=== PATIENT | female | born 1950 | race African-American/Black ===

== ENCOUNTER 2018-12-14 23:13 | Inpatient (IN) ==
[2018-12-14] MEDS ORDERED: Isovue-370 500 ML BOTTLE IVP ONE (23:17)
--- NOTE | 2018-12-14 23:37 | Emergency Department Note ---
Disposition Clinical Impression: CVA (cerebral vascular accident) Qualifiers: CVA mechanism: unspecified Qualified Code(s): I63.9 - Cerebral infarction, unspecified Disposition: Admitted As Inpatient Condition: Good Neuro HPI - General Chief Complaint: ED Neuro Symptoms/Deficit Stated Complaint: Possible Stroke Time Seen by Provider: 12/14/18 23:16 Source: patient, EMS Mode of arrival: EMS Limitations: no limitations Nursing Notes Reviewed: Yes Vital Signs Reviewed: Yes - History of Present Illness HPI Narrative: 68-year-old female history of prior CVA with right sided deficits who presents to the ER via EMS due to concern for stroke like symptoms. Reports symptoms began roughly 1 hour prior to arrival which would put her around 10 PM for last known well. Reports difficulty with her speech as well as "the left side of my face filling " as well as weakness in her right arm and left leg. She has had prior issues with her right arm secondary to prior strokes. She also states that this started with a headache and that she has a history of migraines but this does not feel similar. Stroke alert was called. Onset of Symptoms Date: 12/14/18 Onset of Symptoms Time: 22:00 Symptom Onset Unknown: No Location: speech, left face, right arm, left leg History of same: Yes Symptoms Improving: No Improves with: none Worsens with: none Associated symptoms: Reports: headaches Treatments Prior to Arrival: none - Related Data Home Medications: Home Medications Medication Instructions Recorded Confirmed Acetaminophen [Tylenol] 500 mg PO Q6HR 12/15/18 12/15/18 Albuterol Sulfate [Ventolin Hfa] 1 puff IH Q6H PRN 12/15/18 12/15/18 Atorvastatin [Lipitor] 80 mg PO HS 12/15/18 12/15/18 Carvedilol [Coreg] 6.25 mg PO BIDWM 12/15/18 12/15/18 Clopidogrel [Plavix] 75 mg PO DAILY 12/15/18 12/15/18 Cyclosporine [Restasis] 1 each OP BID 12/15/18 12/15/18 Docusate [Colace] 100 mg PO BID 12/15/18 12/15/18 Esomeprazole Magnesium [Nexium] 40 mg PO DAILY 12/15/18 12/15/18 Famotidine [Pepcid] 40 mg PO DAILY 12/15/18 12/15/18 Ferrous Sulfate [Iron] 325 mg PO DAILY 12/15/18 12/15/18 Fluticasone Propionate [Flovent 2 spray IH DAILY 12/15/18 12/15/18 Diskus] Furosemide [Lasix] 40 mg PO DAILY 12/15/18 12/15/18 Insulin ASPART [Novolog Flexpen] 100 unit SQ TIDWM PRN 12/15/18 12/15/18 Levothyroxine Sodium [Levoxyl] 75 mcg PO 0630 12/15/18 12/15/18 Levothyroxine Sodium [Synthroid] 200 mcg PO 0630 12/15/18 12/15/18 Lisinopril [Zestril] 40 mg PO DAILY 12/15/18 12/15/18 Multivit-Min/Iron/Folic Acid/K 1 each PO DAILY 12/15/18 12/15/18 [Adults Multivitamin Tablet] Mupirocin [Bactroban Oint] 1 appl TP BID 12/15/18 12/15/18 Pregabalin [Lyrica] 75 mg PO HS 12/15/18 12/15/18 Restasis 12/15/18 12/15/18 Sennosides/Docusate Sodium [Senna 1 each PO BID 12/15/18 12/15/18 Plus] Sodium Chloride [Saline Nasal Mist] 126 ml NS DAILY 12/15/18 12/15/18 Spironolactone [Aldactone] 25 mg PO DAILY 12/15/18 12/15/18 Tizanidine HCl [Zanaflex] 4 mg PO BID PRN 12/15/18 12/15/18 Allergies/Adverse Reactions: Allergies Allergy/AdvReac Type Severity Reaction Status Date / Time aspirin Allergy Unresponsiv Verified 12/14/18 23:43 e Penicillins [PCN] Allergy Unresponsiv Verified 12/14/18 23:43 e Sulfa (Sulfonamide Allergy Unresponsiv Verified 12/14/18 23:43 Antibiotics) e All systems ED: reviewed and negative except as stated. Cardiovascular: Denies: chest pain Respiratory: Denies: dyspnea Gastrointestinal: Denies: abdominal pain Neurological: Reports: headache, weakness, paresthesias Past Medical History - Past Medical History Attestation: Yes The following information was validated with the patient. Source: patient, old records reviewed Medical history: Reports: CHF, COPD, coronary artery disease, CVA, diabetes, hypertension, peripheral artery disease Psychiatric history: Reports: anxiety, depression - Social History Smoking Status: Never smoker Smokeless Tobacco Status: No Alcohol use: Reports: none Drug use: Reports: none Physical Exam - General Limitations: no limitations General appearance: alert, in no apparent distress - Head Head exam: atraumatic, normocephalic, normal inspection - Eye Eye exam: Present: normal appearance - ENT ENT exam: normal exam - Neck Neck exam: Present: normal inspection - Chest Chest inspection: Present: normal inspection, symmetric chest wall rise - Respiratory Respiratory exam: Present: normal lung sounds bilaterally - Cardiovascular Cardiovascular exam: Present: regular rate, normal rhythm, normal heart sounds - Abdominal Exam Abdominal exam: Present: soft, Non-Tender. Absent: tenderness, distention, rigidity - Extremities Exam Extremities exam: Present: normal inspection, full ROM - Expanded Upper Extremity Exam Shoulder exam: Present: normal inspection, full ROM Arm exam: Present: normal inspection, full ROM Elbow exam: Present: normal inspection, full ROM Forearm/Wrist exam: Present: normal inspection, full ROM Hand exam: Present: normal inspection, full ROM - Expanded Lower Extremity Exam Hip/Pelvis exam: Present: normal inspection, full ROM Upper leg exam: Present: normal inspection, full ROM Knee exam: Present: normal inspection, full ROM Lower leg exam: Present: normal inspection, full ROM Ankle exam: Present: normal inspection, full ROM Foot/toe exam: Present: normal inspection, full ROM - Neurological Exam Neurological exam: Present: alert, oriented X3 - Expanded Neurological Exam Speech: Present: expressive aphasia Cranial nerves: EOM function (II, III, IV, ): Normal, facial sensation (V): Abnormal Left, facial palsy (VII): Normal, spinal accessory function (XI): Normal, tongue deviation (XII): Normal Cerebellar function: finger to nose: Normal Motor strength - LUE: 4/5 Motor strength - RUE: 3/5 Motor strength - LLE: 4/5 Motor strength - RLE: 4/5 Sensory exam upper extremity: light touch: Normal Sensory exam lower extremity: light touch: Normal Coma Scale Eye Opening: Spontaneous Coma Scale Motor Response: Obeys Commands Coma Scale Verbal Response: Oriented Coma Scale Total: 15 - Skin Skin exam: Present: warm, dry Course Course Narrative: Patient seen and examined. Stroke alert called. - Reevaluation(s) Reevaluation #1: Family at bedside. Hurt new symptom is actually dysarthria. Discussed with neurology who evaluated the patient via the stroke robot. Discussion was had about potential TPA. Shared decision making with family in the room. They elected not to administer TPA after risks and benefits were discussed. Plan to admit the patient here for neurological workup. 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 Hospitalist discussed with me about speaking with stroke neurology if she would be a candidate for any intervention. I spoke with the stroke neurologist Dr. Gautam who did not recommend for any acute intervention given the patient's solitary finding of dysarthria. Plan to admit the patient here for further neurologic workup. Vital Signs Temperature 98.1 F 12/14/18 23:15 Pulse Rate 89 12/14/18 23:15 Respiratory Rate 18 12/14/18 23:15 Blood Pressure 188/104 12/14/18 23:15 O2 Sat by Pulse Oximetry 100 12/14/18 23:15 Temperature 98.1 F 12/14/18 23:15 Pulse Rate 87 12/15/18 00:41 Respiratory Rate 18 12/15/18 00:41 Blood Pressure 167/79 12/15/18 00:41 O2 Sat by Pulse Oximetry 100 12/14/18 23:15 Oxygen Delivery Oxygen Delivery Room Air Neuro Symptoms/Deficit - MDM Narrative Medical decision making narrative: 68-year-old female presenting with strokelike symptoms. She has an underlying history of numerous CVAs in the past. Her true new finding today is dysarthria with the current NIH of 1. The patient was evaluated by [facility] stroke neurology answer shared decision making it was decided to withhold TPA. She had imaging as well demonstrating occlusion of her internal carotid artery which was discussed with stroke neurology as well and felt no acute intervention was indicated. Labs reviewed showing chronic anemia. The patient is admitted to the hospitalist service. Patient was not given aspirin as family reports a severe reaction when given. - Lab Data Lab results reviewed: Yes I reviewed the patient's lab results. Result diagrams: 12/14/18 23:38 12/14/18 23:37 Lab Results 12/14/18 12/14/18 12/14/18 Range/Units 23:37 23:37 23:38 WBC 8.9 (4.3-11.1) K/mcL RBC 2.88 L (3.82-4.97) M/mcL Hgb 8.6 L (11.5-15.4) g/dL Hct 26.9 L (35.3-44.9) % MCV 93.4 (83.0-100.0) fL MCH 29.9 (28.0-33.3) pg MCHC 32.0 (31.6-35.5) g/dL RDW 14.6 H (11.5-14.5) % Plt Count 192 (140-400) K/mcL MPV 10.7 (9.4-12.4) fL PT 12.0 (9.4-12.1) Seconds INR 1.1 APTT 36.1 H (26.0-36.0) Seconds Sodium 140 (136-145) mEq/L Potassium 3.8 (3.5-5.1) mEq/L Chloride 105 (98-107) mEq/L Carbon Dioxide 27 (23-29) mEq/L BUN 24 H (8-23) mg/dL Creatinine 1.20 (0.60-1.20) mg/dL Est GFR ( Amer) 54 L (> 60) Est GFR (Non-Af Amer) 45 L (> 60) BUN/Creatinine Ratio 20 (6-26) Glucose 184 H (70-105) mg/dL Calculated Osmolality 299 (280-300) Calcium 8.7 (8.6-10.3) mg/dL Troponin I < 0.03 (< 0.04) ng/mL - Radiology Data Radiology results reviewed: Yes I reviewed the patient's radiology results. Head CT 12/14/18 23:16 IMPRESSION: Limited evaluation as the patient refused to remove her jewelry. However, no acute intracranial abnormality identified. Diffuse atrophic changes with findings suggesting chronic microvascular ischemia and an old right frontal lobe infarct. Findings were discussed with Colleen Urbano at 11:38 pm on 12/14/2018. D/ / Kamar Brasher MD / Kamar Brasher MD Interpreting Provider: Kamar Brasher MD Head CTA 12/14/18 23:17 IMPRESSION: 1. 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 2. Mild atherosclerotic disease of the left internal carotid artery, without evidence of flow-limiting stenosis by NASCET criteria. 3. No evidence of intracerebral arterial stenosis, filling defect, or aneurysm. 4. Patent posterior circulation, without evidence of stenosis, filling defect, or aneurysm. 5. Chronic right frontal infarct. 6. Multiple scattered nonspecific biapical pulmonary nodules, the largest measures 6 mm within the right upper lobe. Suggest further characterization with a routine non urgent follow-up chest CT. D/ / Maxim Apple MD / Maxim Apple MD Interpreting Provider: Maxim Apple MD Neck CTA 12/14/18 23:17 IMPRESSION: 1. 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 2. Mild atherosclerotic disease of the left internal carotid artery, without evidence of flow-limiting stenosis by NASCET criteria. 3. No evidence of intracerebral arterial stenosis, filling defect, or aneurysm. 4. Patent posterior circulation, without evidence of stenosis, filling defect, or aneurysm. 5. Chronic right frontal infarct. 6. Multiple scattered nonspecific biapical pulmonary nodules, the largest measures 6 mm within the right upper lobe. Suggest further characterization with a routine non urgent follow-up chest CT. D/ / Maxim Apple MD / Maxim Apple MD Interpreting Provider: Maxim Apple MD NIH Stroke Scale - Level of Consciousness LOC: Alert - LOC Questions LOC Questions: Answers both correctly - LOC Commands LOC Commands: Performs both correctly - Best Gaze Best Gaze: Normal - Visual Visual: No visual loss - Facial Palsy Facial Palsy: Normal - Motor Arms Motor Arm-Left: No drift for 10 seconds Motor Arm-Right: No drift for 10 seconds - Motor Legs Motor Leg-Left: No drift for 5 seconds Motor Leg-Right: No drift for 5 seconds - Limb Ataxia Limb Ataxia: Absent of affected limb too weak to perform exam - Sensory Sensory: Mild to moderate loss, "not as sharp" - Best Language Best Language: No aphasia - Dysarthria Dysarthria: Mild, slurs some words - Extinction and Inattention Extinction and Inattention: Normal - NIHSS Total Score NIHSS Total Score: 2 TPA Checklist - LKW: 3-4.5 hrs Add. Warnings/Precautions Patient/family understanding: The patient/family members have been counseled and understood the risk, benefit, and alternatives of treatment. S.B.AFederico - S.Yohan Situation: Demographics, MOA Background: Presenting Complaint, Relevant PMH, Meds, & Allergies Assessment: Course and respsone to treatment, Exam Concerns, Patient/Family Expectation, Pertinant Lab Results Recommendation: Barrier(s) to disposition, Recommendation based on pending studies, treatments, or consults S.B.A.RAbhi Report Given to: Dr. Taylor
[2018-12-14 23:51] LABS: Hematocrit 26.9 % (35.3-44.9); Hemoglobin 8.6 g/dL (11.5-15.4); Mean Corpuscular Hemoglobin 29.9 pg (28.0-33.3); Mean Corpuscular Volume 93.4 fL (83.0-100.0); Mean Platelet Volume 10.7 fL (9.4-12.4); Platelet Count 192 K/mcL (140-400); Red Blood Count 2.88 M/mcL (3.82-4.97); Red Cell Distribution Width 14.6 % (11.5-14.5)
[2018-12-14 23:57] LABS: INR 1.1
[2018-12-15] LABS: Activated Partial Thrombo Time 36.1 Seconds (26.0-36.0)
[2018-12-15 00:14] LABS: BUN/Creatinine Ratio 20 (6-26); Blood Urea Nitrogen 24 mg/dL (8-23); Calcium 8.7 mg/dL (8.6-10.3); Carbon Dioxide 27 mEq/L (23-29); Chloride 105 mEq/L (98-107); Glucose 184 mg/dL (70-105); Osmolality,Calculated 299 (280-300); Potassium 3.8 mEq/L (3.5-5.1); Sodium 140 mEq/L (136-145); eGFR For Non-African Americans 45 (> 60)
[2018-12-15 00:15] LABS: Troponin I < 0.03 ng/mL (< 0.04)
--- NOTE | 2018-12-15 00:37 | Emergency Department Note ---
Disposition Clinical Impression: CVA (cerebral vascular accident) Qualifiers: CVA mechanism: unspecified Qualified Code(s): I63.9 - Cerebral infarction, unspecified Disposition: Admitted As Inpatient Condition: Good Referrals: NONE,PCP [Primary Care Provider] - Forms: ED Satisfaction Letter General Adult HPI - General Chief complaint: ED Neuro Symptoms/Deficit Stated complaint: Possible Stroke Time Seen by Provider: 12/14/18 23:16 Source: patient, EMS Mode of arrival: EMS Limitations: no limitations - History of Present Illness Pain Scale: 0 - Related Data Allergies Allergy/AdvReac Type Severity Reaction Status Date / Time aspirin Allergy Unresponsiv Verified 12/14/18 23:43 e Penicillins [PCN] Allergy Unresponsiv Verified 12/14/18 23:43 e Sulfa (Sulfonamide Allergy Unresponsiv Verified 12/14/18 23:43 Antibiotics) e Cardiovascular: Denies: chest pain Respiratory: Denies: dyspnea Gastrointestinal: Denies: abdominal pain Neurological: Reports: headache, weakness, paresthesias Past Medical History - Past Medical History Medical history: Reports: CHF, COPD, coronary artery disease, CVA, diabetes, hypertension, peripheral artery disease Psychiatric history: Reports: anxiety, depression - Social History Smoking Status: Never smoker Smokeless Tobacco Status: No Alcohol use: Reports: none Drug use: Reports: none Physical Exam - General Limitations: no limitations General appearance: alert, in no apparent distress Course Vital Signs Temperature 98.1 F 12/14/18 23:15 Pulse Rate 89 12/14/18 23:15 Respiratory Rate 18 12/14/18 23:15 Blood Pressure 188/104 12/14/18 23:15 O2 Sat by Pulse Oximetry 100 12/14/18 23:15 Temperature 98.1 F 12/14/18 23:15 Pulse Rate 87 12/15/18 00:07 Respiratory Rate 18 12/15/18 00:07 Blood Pressure 148/89 12/15/18 00:07 O2 Sat by Pulse Oximetry 100 12/14/18 23:15 Oxygen Delivery Oxygen Delivery Room Air Medical Decision Making - Lab Data Result diagrams: 12/14/18 23:38 12/14/18 23:37 Lab Results 12/14/18 12/14/18 12/14/18 Range/Units 23:37 23:37 23:38 WBC 8.9 (4.3-11.1) K/mcL RBC 2.88 L (3.82-4.97) M/mcL Hgb 8.6 L (11.5-15.4) g/dL Hct 26.9 L (35.3-44.9) % MCV 93.4 (83.0-100.0) fL MCH 29.9 (28.0-33.3) pg MCHC 32.0 (31.6-35.5) g/dL RDW 14.6 H (11.5-14.5) % Plt Count 192 (140-400) K/mcL MPV 10.7 (9.4-12.4) fL PT 12.0 (9.4-12.1) Seconds INR 1.1 APTT 36.1 H (26.0-36.0) Seconds Sodium 140 (136-145) mEq/L Potassium 3.8 (3.5-5.1) mEq/L Chloride 105 (98-107) mEq/L Carbon Dioxide 27 (23-29) mEq/L BUN 24 H (8-23) mg/dL Creatinine 1.20 (0.60-1.20) mg/dL Est GFR ( Amer) 54 L (> 60) Est GFR (Non-Af Amer) 45 L (> 60) BUN/Creatinine Ratio 20 (6-26) Glucose 184 H (70-105) mg/dL Calculated Osmolality 299 (280-300) Calcium 8.7 (8.6-10.3) mg/dL Troponin I < 0.03 (< 0.04) ng/mL Attestation Statement - Attestation Attestation: I examined this patient and my medical decision-making was reviewed with the Resident Physician. I agree with the documented findings, disposition and treatment plan as described except to the extent set forth below. 68 shereen old female presents to the ED via EMS for sudden onset of woresning slurred speech and left sided facial numbness and lower extremitiy numbness. She has a history of 6 strokes in the past which has left her with knonw right sided defecits. STROKE ALERT was called and Dr Gautam has offered tpa therapy because she is within the window of 4.5 hours as the LKW was 1.5 hours before arrivals. Patient family has declined tpa therapy at this time would like to get hte mRI first. We will admit to [facility]. She does have complete occulation of her right ICA with collaterol perfusion at [facility]
[2018-12-15] MEDS ORDERED: Dextrose Gel 15 GM/37.5 ML TUBE PO PRN ×2 (04:13)
[2018-12-15] MEDS ORDERED: *HR* Dextrose 50 % in Water (Syg) 50 ML SYRINGE IVP PRN (04:13)
[2018-12-15] MEDS ORDERED: D5% in Water 1,000 ML IVC PRN (04:13)
[2018-12-15] MEDS ORDERED: Naloxone 0.4 MG/ML INJ IVP PRN (04:13)
[2018-12-15] MEDS ORDERED: 0.9 % Sodium Chloride w KCl 20 MEQ/1,000 ML MLS IVC SCH (04:15)
--- NOTE | 2018-12-15 04:49 | Internal Med History&Physical ---
Date of Encounter: 12/15/18 Time of Encounter: 03:55 Internal Medicine - H&P: HPI Chief complaint: slurred speech Admitted From: Emergency Dept Plans for Post Hospital Care: Home History of present illness: Ms. Westbrook is a 68 year old female who presented with right-sided weakness and numbness as well as some slurred speech. Upon arrival to the ER, patient was quickly seen and evaluated and a stroke alert was called. There was a tele- medicine robot consultation with [facility] neurology who recommended TPA. However, patient and family refused and preferred to pursue a workup here at [facility]. Furthermore, most of her symptoms had resolved at that point. She also then underwent CTA of the head and neck, which revealed complete occlusion of the right internal carotid artery. I asked the ER resident to contact [facility] neurology regarding these findings. [facility] neurology was contacted back and does not recommend intervention at this time. She was therefore admitted to hospitalst service. Upon my assessment of the patient, she is lying in bed comfortably. She and her daughter both confirmed above history. Her daughter tells me she has had 5 prior strokes. She also suffers from uncontrolled diabetes. However, patient is at high risk of hypoglycemia. She has been told by her PCP to give insulin only if needed due to risk of hypoglycemia and significant/adverse reactions she has had to insulin. Regarding her stroke-like symptoms, her symptoms started this evening. However, daughter states she also has had onset of dysphagia over 24 hours ago. She has had 5 prior strokes and has had minimal to no residual deficits since then. However, she does have right-sided tremor, especially in her arm. Patient also complains of left-sided earache and decreased hearing from her ear. She also is being treated for a diabetic foot wound by the hospitality specialist here. Per nursing report, her foot wound appears to be infected and may need to be debrided. Past Med Surg Social Fam HX - Past Medical History Attestation: Yes The following information was validated with the patient. Source: patient, obtained from family Medical history: CHF, COPD, coronary artery disease, CVA, diabetes, hypertension, peripheral artery disease Additional medical history: ishemic stroke, DJD Psychiatric history: anxiety, depression - Past Surgical History Surgical History: angioplasty/stent, orthopedic, other - Social History Smoking Status: Never smoker Smokeless Tobacco Status: No Alcohol use: none Drug use: none - Family History Mother Living Status: Hx Family Endocrine Disorder: Yes (diabetes) Internal Medicine - H&P: Meds Acetaminophen [Tylenol] 500 mg PO Q6HR 12/15/18 [History] Albuterol Sulfate [Ventolin Hfa] 1 puff IH Q6H PRN 12/15/18 [History] Atorvastatin [Lipitor] 80 mg PO HS 12/15/18 [History] Carvedilol [Coreg] 6.25 mg PO BIDWM 12/15/18 [History] Clopidogrel [Plavix] 75 mg PO DAILY 12/15/18 [History] Cyclosporine [Restasis] 1 each OP BID 12/15/18 [History] Docusate [Colace] 100 mg PO BID 12/15/18 [History] Esomeprazole Magnesium [Nexium] 40 mg PO DAILY 12/15/18 [History] Famotidine [Pepcid] 40 mg PO DAILY 12/15/18 [History] Ferrous Sulfate [Iron] 325 mg PO DAILY 12/15/18 [History] Fluticasone Propionate [Flovent Diskus] 2 spray IH DAILY 12/15/18 [History] Furosemide [Lasix] 40 mg PO DAILY 12/15/18 [History] Insulin ASPART [Novolog Flexpen] 100 unit SQ TIDWM PRN 12/15/18 [History] Levothyroxine Sodium [Levoxyl] 75 mcg PO 0630 12/15/18 [History] Levothyroxine Sodium [Synthroid] 200 mcg PO 0630 12/15/18 [History] Lisinopril [Zestril] 40 mg PO DAILY 12/15/18 [History] Multivit-Min/Iron/Folic Acid/K [Adults Multivitamin Tablet] 1 each PO DAILY 12/15/18 [History] Mupirocin [Bactroban Oint] 1 appl TP BID 12/15/18 [History] Pregabalin [Lyrica] 75 mg PO HS 12/15/18 [History] Restasis 12/15/18 [History] Sennosides/Docusate Sodium [Senna Plus] 1 each PO BID 12/15/18 [History] Sodium Chloride [Saline Nasal Mist] 126 ml NS DAILY 12/15/18 [History] Spironolactone [Aldactone] 25 mg PO DAILY 12/15/18 [History] Tizanidine HCl [Zanaflex] 4 mg PO BID PRN 12/15/18 [History] Allergy/AdvReac Type Severity Reaction Status Date / Time aspirin Allergy Unresponsiv Verified 12/14/18 23:43 e Penicillins [PCN] Allergy Unresponsiv Verified 12/14/18 23:43 e Sulfa (Sulfonamide Allergy Unresponsiv Verified 12/14/18 23:43 Antibiotics) e - Constitutional Constitutional: no chills, no fatigue, no fever(s), no lethargy, no night sweats - EENT Eyes: no blurry vision, no change in vision Ears: decreased hearing (left ear), ear pain, no tinnitus Nose, mouth and throat: nasal congestion, sinus pressure, sore throat - Cardiovascular Cardiovascular ROS IM: no chest pain, no dyspnea, no dyspnea on exertion, no edema - Respiratory Respiratory: no cough, no chest congestion, no excessive phlegm production, no change in phlegm color - Gastrointestinal Gastrointestinal: no abdominal pain, no diarrhea, no hematemesis, no hematochezia, no melena, no vomiting - Genitourinary Genitourinary: no flank pain, no hematuria - Musculoskeletal Musculoskeletal ROS IM: arthralgias, back pain Additional comments: foot ulcer/wound dorsum right foot - Integumentary Integumentary IM: no rash, no jaundice - Neurological Neurological ROS: abnormal speech, focal weakness, no dizziness, no frequent falls, no headache(s) - Psychiatric Psychiatric: no anxiety, no depression - Endocrine Endocrine IM: no polydipsia, no polyphagia, no polyuria - Allergic/Immunologic Allergic/Immunologic: no GI upset with certain foods - Constitutional Vitals: Temp Pulse Resp BP Pulse Ox 98.3 F 83 16 184/99 100 12/15/18 03:38 12/15/18 03:38 12/15/18 03:38 12/15/18 03:38 12/15/18 03:38 General appearance: Present: cooperative, A&O X 3, pleasant, no acute distress, answers questions appropriately Exam: mild slurred speech and facial droop noted - Head Head exam: Present: atraumatic, normal inspection - Eye Eye exam: Present: EOMI, PERRL. Absent: scleral icterus Pupils: Present: normal accommodation - ENT ENT exam: Present: mucous membranes dry, normal exam, normal oropharynx. Absent: TM's normal bilaterally (L TM with serous effusion; ear canal patent without erythema or inflammation) - Neck Neck exam general surgery: Present: full ROM, supple. Absent: tenderness, nuchal rigidity, thyromegaly - Respiratory Respiratory exam: Present: CTAB. Absent: chest wall tenderness, rales, rhonchi, wheezes - Cardiovascular Cardiovascular exam: Present: distant heart sounds, RRR, +S1, +S2. Absent: diastolic murmur, systolic murmur - GI/Abdominal GI/Abdominal exam: Present: normal bowel sounds, soft. Absent: guarding, hepatomegaly, mass, rebound, splenomegaly, tenderness - Extremities Exam Extremities exam: Present: full ROM, warm, radial pulses palpable and symmetrical. Absent: calf tenderness, pedal edema, tenderness Additional comments: right dorsal foot ulcer -- dressed; reported to me by RN. - Back Exam Back exam: Absent: CVA tenderness (L), CVA tenderness (R) - Neurological Exam Neurological exam: Present: alert, oriented X3, no focal deficits, strengths equal and symetr throughout, facial droop (subtle), speech deficit Additional comments: right sided tremor -- old/chronic per daughter - Psychiatric Psychiatric exam: Present: normal affect, normal mood - Skin Skin exam: Present: dry, intact, warm Internal Med - H&P Results - Labs CBC & Chem 7: 12/14/18 23:38 12/14/18 23:37 Labs: Short CBC 12/14/18 Range/Units 23:38 WBC 8.9 (4.3-11.1) K/mcL Hgb 8.6 L (11.5-15.4) g/dL Hct 26.9 L (35.3-44.9) % Plt Count 192 (140-400) K/mcL BMP 12/14/18 23:37 Sodium 140 Potassium 3.8 Chloride 105 Carbon Dioxide 27 BUN 24 H Creatinine 1.20 Glucose 184 H Calcium 8.7 Cardiac Enzymes 12/14/18 Range/Units 23:37 Troponin I < 0.03 (< 0.04) ng/mL - EKG Data -: EKG Interpreted by Myself - EKG Data Prior EKG available for review: no EKG comments: 12/15/18 05:03 NSR - Impressions ITS Impressions Head CT 12/14/18 23:16 IMPRESSION: Limited evaluation as the patient refused to remove her jewelry. However, no acute intracranial abnormality identified. Diffuse atrophic changes with findings suggesting chronic microvascular ischemia and an old right frontal lobe infarct. Findings were discussed with Colleen Urbano at 11:38 pm on 12/14/2018. D/ / Kamar Brasher MD / Kamar Brasher MD Interpreting Provider: Kamar Brasher MD Head CTA 12/14/18 23:17 IMPRESSION: 1. 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 2. Mild atherosclerotic disease of the left internal carotid artery, without evidence of flow-limiting stenosis by NASCET criteria. 3. No evidence of intracerebral arterial stenosis, filling defect, or aneurysm. 4. Patent posterior circulation, without evidence of stenosis, filling defect, or aneurysm. 5. Chronic right frontal infarct. 6. Multiple scattered nonspecific biapical pulmonary nodules, the largest measures 6 mm within the right upper lobe. Suggest further characterization with a routine non urgent follow-up chest CT. D/ / Maxim Apple MD / Maxim Apple MD Interpreting Provider: Maxim Apple MD Neck CTA 12/14/18 23:17 IMPRESSION: 1. 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 2. Mild atherosclerotic disease of the left internal carotid artery, without evidence of flow-limiting stenosis by NASCET criteria. 3. No evidence of intracerebral arterial stenosis, filling defect, or aneurysm. 4. Patent posterior circulation, without evidence of stenosis, filling defect, or aneurysm. 5. Chronic right frontal infarct. 6. Multiple scattered nonspecific biapical pulmonary nodules, the largest measures 6 mm within the right upper lobe. Suggest further characterization with a routine non urgent follow-up chest CT. D/ / Maxim Apple MD / Maxim Apple MD Interpreting Provider: Maxim Apple MD - Diagnostic Studies CT scan - head Status: image reviewed by me (negative) - Assessment and plan (1) CVA (cerebral vascular accident) Current Visit: Yes Status: Acute Assessment and plan: 1. Will order MRI brain, ECHO, PT/OT/ST consults. 2. Consult neurology. 3. Head and neck CTA results reviewed. 4. Continue stroke monitoring per stroke protocol. Qualifiers: CVA mechanism: unspecified Qualified Code(s): I63.9 - Cerebral infarction, unspecified (2) Diabetes type 2, controlled Current Visit: Yes Status: Chronic Assessment and plan: 1. Monitor glucose closely and treat if > 200. 2. Daughter reports brittle diabetes and abrupt hyoglycemia when she takes insulin. 3. Avoid hypoglycemia. 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 Will treat with antibiotics. 2. Monitor clinically and outpatient follow up with PCP. Qualifiers: Chronicity: acute Recurrence: non-recurrent Qualified Code(s): H65.02 - Acute serous otitis media, left ear (4) Diabetic foot ulcer Current Visit: Yes Status: Chronic Assessment and plan: 1. I reviewed her old wound culture. 2. Will place on antibiotics and consult wound care. Qualifiers: Diabetic foot ulcer location: midfoot Diabetes mellitus type: type 1 Laterality: right Non-pressure ulcer stage: unspecified non-pressure ulcer stage Qualified Code(s): E10.621 - Type 1 diabetes mellitus with foot ulcer; L97.419 - Non-pressure chronic ulcer of right heel and midfoot with unspecified severity (5) DVT prophylaxis Current Visit: Yes Status: Acute Assessment and plan: 1. Heparin SQ.
[2018-12-15] MEDS: Acetaminophen 325 MG TABLET PO PRN (05:27)
[2018-12-15] MEDS: Famotidine 20 MG TABLET PO SCH (05:28)
[2018-12-15] MEDS: *HR* Heparin 5,000 UNIT/ML VIAL SQ SCH ×3 (05:29→21:56)
--- NOTE | 2018-12-15 07:35 | Internal Med Progress Note ---
<Violeta Sagastume - Last Filed: 12/15/18 13:39> Hospitalist Progress Note - Encounter Date of Encounter: 12/15/18 - Exam Vitals: Temp Pulse Resp BP Pulse Ox 98.1 F 78 16 189/96 94 12/15/18 12:04 12/15/18 12:04 12/15/18 12:04 12/15/18 12:04 12/15/18 12:04 - Assessment and Plan (1) CVA (cerebral vascular accident) Current Visit: Yes Status: Acute (2) Diabetes type 2, controlled Current Visit: Yes Status: Chronic (3) Left serous otitis media Current Visit: Yes Status: Acute (4) Diabetic foot ulcer Current Visit: Yes Status: Chronic (5) DVT prophylaxis Current Visit: Yes Status: Acute (6) ICAO (internal carotid artery occlusion) Current Visit: Yes Status: Acute (7) Pulmonary nodules Current Visit: Yes Status: Acute (8) HTN (hypertension) Current Visit: Yes Status: Chronic (9) Hypothyroidism Current Visit: No Status: Chronic (10) Anemia Current Visit: Yes Status: Chronic - Time Spent with Patient Total time spent is greater than 50% in coordination of care (as documented) at patient's floor/unit and/or counseling patient: Internal Medicine: Result - Labs CBC & Chem 7: 12/15/18 07:17 12/15/18 07:17 Labs: Short CBC 12/14/18 12/15/18 Range/Units 23:38 07:17 WBC 8.9 9.0 (4.3-11.1) K/mcL Hgb 8.6 L 7.9 L (11.5-15.4) g/dL Hct 26.9 L 25.1 L (35.3-44.9) % Plt Count 192 189 (140-400) K/mcL Neutrophils # 5.9 (1.6-8.9) K/mcL BMP 12/14/18 12/15/18 23:37 07:17 Sodium 140 139 Potassium 3.8 3.8 Chloride 105 107 Carbon Dioxide 27 27 BUN 24 H 22 Creatinine 1.20 1.13 Glucose 184 H 173 H Calcium 8.7 8.8 Cardiac Enzymes 12/14/18 Range/Units 23:37 Troponin I < 0.03 (< 0.04) ng/mL Liver Function 12/15/18 Range/Units 07:17 Total Bilirubin 0.3 (0.3-1.0) mg/dL AST 74 H (13-39) Units/L ALT 100 H (7-52) Units/L Alkaline Phosphatase 82 (34-104) Units/L Albumin 3.3 L (3.5-5.7) g/dL - ABG Interpretation ABG results: PT/INR, D-dimer PT 12.0 Seconds (9.4-12.1) 12/14/18 23:37 - Impressions Impressions Head CT 12/14/18 23:16 IMPRESSION: Limited evaluation as the patient refused to remove her jewelry. However, no acute intracranial abnormality identified. Diffuse atrophic changes with findings suggesting chronic microvascular ischemia and an old right frontal lobe infarct. Findings were discussed with Colleen Urbano at 11:38 pm on 12/14/2018. D/ / Kamar Brasher MD / Kamar Brasher MD Interpreting Provider: Kamar Brasher MD Head CTA 12/14/18 23:17 IMPRESSION: 1. Complete occlusion of the cervical right internal carotid artery at its origin, which becomes reconstituted by collateral flow at the [place]. 2. Mild atherosclerotic disease of the left internal carotid artery, without evidence of flow-limiting stenosis by NASCET criteria. 3. No evidence of intracerebral arterial stenosis, filling defect, or aneurysm. 4. Patent posterior circulation, without evidence of stenosis, filling defect, or aneurysm. 5. Chronic right frontal infarct. 6. Multiple scattered nonspecific biapical pulmonary nodules, the largest measuring 6 mm within the right upper lobe. Suggest further characterization with a routine non urgent follow-up chest CT. D/ / 12/15/2018 07:26:58 Maxim Apple MD / [facility] [place] Interpreting Provider: Maxim Apple MD Neck CTA 12/14/18 23:17 IMPRESSION: 1. Complete occlusion of the cervical right internal carotid artery at its origin, which becomes reconstituted by collateral flow at the [place]. 2. Mild atherosclerotic disease of the left internal carotid artery, without evidence of flow-limiting stenosis by NASCET criteria. 3. No evidence of intracerebral arterial stenosis, filling defect, or aneurysm. 4. Patent posterior circulation, without evidence of stenosis, filling defect, or aneurysm. 5. Chronic right frontal infarct. 6. Multiple scattered nonspecific biapical pulmonary nodules, the largest measuring 6 mm within the right upper lobe. Suggest further characterization with a routine non urgent follow-up chest CT. D/ / 12/15/2018 07:26:58 Maxim Apple MD / [facility] Interpreting Provider: Maxim Apple MD Brain MRI 12/15/18 04:13 IMPRESSION: 1. No acute infarct or acute intracranial process identified. 2. Remote watershed infarct within the right cerebral hemisphere. 3. Remote lacunar infarcts within the right basal ganglia and thalami. D/ / 12/15/2018 13:06:45 Octavio Jean Baptiste MD / [facility] Interpreting Provider: Octavio Jean Baptiste MD Consult Discharge Plan - Plan Referrals: NONE,PCP [Primary Care Provider] - - Attending Attestation I examined this patient and my medical decision-making was reviewed with the Resident Physician Dr Redman. I agree with the documented findings, disposition and treatment plan as described except to the extent set forth below. Ms Westbrook was admitted today with slurred speech and left sided face and leg numbness, as well as right leg numbness She is being worked up for stoke She was a stroke alert in ED and [facility] rec for tpa but PT REFUSED asleep in bed, awakes to name, asked what I wanted and to not wake her up Daughter named AJ at bedside and provides info. States her mother is not cooperative or kind at baseline and mentation is currently unchanged Daughter notes she still has slurred speech, she cannot appreciate facial droop and mother still c/o left arm and leg tingling and she suspects those extremities are weak as well. Discussed plan for day and agreeable, all questions answered gen- asleep,awake o name,appears stated age eyes- pupils equal round cv- reg rate and rhythm, normal s1,s2, no murmurs appreciated, no le edema lungs- ctabl, no wheezing, rhonchi or crackles abd- soft, no apparent tenderness, no guarding, non distended skin- right foot dressing c/d/i neuro- awakes to name, oriented to person, place, situation, she declines eam at this time due to being tired, slight left lower facial droop appreciated, dysarthria present, further exam not preformed due to pt decline to participate Dysarthria/ Left Ext Parasthesias- rule out acute CVA Vasculopathy with hx CVAs (multiple), CAD and PVD -pt presented within time window for tpa and [facility] recommneded but she refused -CTA reviewed by admitter and given RCA occulsion had [facility] review and no int ervention needed, chronic with collateral per report/signout -severe reaction to asa therefore plavix + statin (daughter notes home plavix had been held recently for anemia) -pt/ot/macaroni maker/sw -MRI head no acute infarct identified -echo pending -neuro eval pending -BP control now that no acute infarct Chronic anemia, bl appears to be right around 8.6- stable, cont ot monitor, cont iron pulm nodules incidental on CT head/neck- ct chest to further eval Foot wound- empiric abx started, no drainage currently for wound culture, wound consult pending DM- highly sensitive to insulin with hypoglycemic events in past- bl is 150-180 at home, only treat if >200 L otitis media- abx as above further diagnoses and plan as noted by resident <Brandon Redman - Last Filed: 12/15/18 16:27> Hospitalist Progress Note - Encounter Date of Encounter: 12/15/18 Time of Encounter: 08:00 - Subjective Interval History: Patient seen and examined resting comfortably in bed. 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 Dysphasia is slowly improving. Blood pressure is elevated to allow permissive hypertension in the setting of acute CVA. Patient was not given Aspirin due to previous Aspirin allergy. Awaiting neurology evaluation. CT chest ordered to evaluate pulmonary nodules. Speech therapy recommended a clinically altered diabetic diet and assistance with all meals. Patient asked for Tums today and prn stool softener. - Exam Vitals: Temp Pulse Resp BP Pulse Ox 97.8 F 82 16 184/91 95 12/15/18 06:47 12/15/18 06:47 12/15/18 06:47 12/15/18 06:47 12/15/18 06:47 Exam: General appearance: Present: cooperative, A&O X 3, pleasant, no acute distress, answers questions appropriately Exam: - Head Head exam: Present: atraumatic, normal inspection - Eye Eye exam: Present: EOMI, PERRL. Absent: scleral icterus Pupils: Present: normal accommodation - ENT ENT exam: Present: mucous membranes dry, normal exam, normal oropharynx. Absent: TM's normal bilaterally (L TM with serous effusion; ear canal patent without erythema or inflammation) - Neck Neck exam general surgery: Present: full ROM, supple. Absent: tenderness, nuc richa rigidity, thyromegaly - Respiratory Respiratory exam: Present: CTAB. Absent: chest wall tenderness, rales, rhonchi, wheezes - Cardiovascular Cardiovascular exam: Present: distant heart sounds, RRR, +S1, +S2. Absent: diastolic murmur, systolic murmur - GI/Abdominal GI/Abdominal exam: Present: normal bowel sounds, soft. Absent: guarding, hepatomegaly, mass, rebound, splenomegaly, tenderness - Extremities Exam Extremities exam: Present: full ROM, warm, radial pulses palpable and symmetrical. Absent: calf tenderness, pedal edema, tenderness Additional comments: right dorsal foot ulcer, dressing in place - Back Exam Back exam: Absent: CVA tenderness (L), CVA tenderness (R) - Neurological Exam Neurological exam: Present: alert, oriented X3, no focal deficits, strengths equal and symetr throughout, facial droop (subtle), speech deficit Additional comments: mild slurred speech and facial droop noted, right upper extremity tremor, chronic per daughter - Psychiatric Psychiatric exam: Present: normal affect, normal mood - Skin Skin exam: Present: dry, warm, right dorsal foot ulcer, dressing in place - Assessment and Plan (1) Community acquired pneumonia Current Visit: Yes Status: Suspected Assessment and Plan: Chest CT revealed bronchial wall thickening and diffusely distributed bilateral punctate ill-defined centrilobular nodules in branching configuration, likely infectious airways disease. Pericardial effusion measuring to 1.3 cm in thickness. Urine Legionella and strep pneumo antigens pending MRSA nasal swab pending at Blood culture pending Sputum culture pending Continue vancomycin and Levaquin (day 1) (2) Left serous otitis media Current Visit: Yes Status: Acute Assessment and Plan: Left TM with serous effusion Wound culture pending Continue vancomycin and Levaquin (day 1) Continue pain control as needed Monitor clinically and outpatient follow up with PCP. (3) Facial paresthesia Current Visit: Yes Status: Chronic Assessment and Plan: CT head revealed diffuse atrophic changes with findings suggesting chronic microvascular ischemia and an old right frontal lobe infarct. Head CTA revealed no evidence of intracerebral arterial stenosis, filling defect, or aneurysm. Patent posterior circulation, without evidence of stenosis, filling defect, or aneurysm. Chronic right frontal infarct. [facility] recommended TPA. However, patient and family refused and preferred to pursue a workup here at [place]. Furthermore, most of her symptoms had resolved at that point. Dysplasia is slowly improving. 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 MRI brain revealed no acute infarct or acute intracranial process identified. Remote watershed infarct within the right cerebral hemisphere. Remote lacunar infarcts within the right basal ganglia and thalami. ECHO revealed LVEF 55-60%, moderate concentric left ventricular hypertrophy, moderate left ventricular diastolic dysfunction, the non coronary cusp of the aortic valve and the tip of the anterior mitral valve leaflet are thickened and echogenic, probably with calcified material. No evidence of pulmonary hypertension. Continue statin. Continue Plavix. Patient was not given Aspirin due to previous Aspirin allergy. Speech therapy recommended a clinically altered diabetic diet and assistance with all meals. PT/OT consulted Continue monitoring per stroke protocol. Neurology following, appreciate their recommendations. (4) ICAO (internal carotid artery occlusion) Current Visit: Yes Status: Acute Assessment and Plan: CTA neck revealed complete occlusion of the cervical right internal carotid artery at its origin, which becomes reconstituted by collateral flow at the [place]. Mild atherosclerotic disease of the left internal carotid artery, without evidence of flow-limiting stenosis by NASCET criteria. [facility] neurology did not recommend intervention at this time. Continue risk factor modification. Recommend outpatient follow-up with vascular surgery. (5) Diabetic foot ulcer Current Visit: Yes Status: Chronic Assessment and Plan: Chronic foot wound appears to be infected and may need to be debrided. Wound culture from 11/26/18 revealed Enterobacter cloacae complex, resistant to Augmentin and Cefazolin. Wound culture pending Continue vancomycin and Levaquin (day 1) Consulted wound care. (6) Diabetes type 2, controlled Current Visit: Yes Status: Chronic Assessment and Plan: Daughter reports brittle diabetes and abrupt hyoglycemia when she takes insulin. Hemoglobin A1c pending Monitor glucose closely, continue low dose SSI ACHS. (7) HTN (hypertension) Current Visit: Yes Status: Chronic Assessment and Plan: Blood pressure is elevated Resume home Coreg. Labetalol ordered prn BP > 160/90 Continue monitoring. (8) Pulmonary nodules Current Visit: Yes Status: Acute Assessment and Plan: CTA neck revealed multiple scattered nonspecific biapical pulmonary nodules, the largest measures 6 mm within the right upper lobe. Chest CT revealed 9 mm noncalcified nodule within the left lower lobe, consider CT at 3 months, PET/CT, or tissue sampling (9) Anemia Current Visit: Yes Status: Chronic Assessment and Plan: Appears chronic since November 2018. No active signs of bleeding. Iron studies reveal iron deficiency anemia B12 and folate levels are WNL Fecal occult blood test pending Continue home iron supplementation. (10) Hypothyroidism Current Visit: No Status: Chronic Assessment and Plan: TSH level pending Continue Synthroid. (11) Constipation Current Visit: Yes Status: Chronic Assessment and Plan: Colace and milk of magnesia ordered (12) DVT prophylaxis Current Visit: Yes Status: Acute Assessment and Plan: Heparin SQ. - Time Spent with Patient Total time spent is greater than 50% in coordination of care (as documented) at patient's floor/unit and/or counseling patient: Internal Medicine: Result - Labs CBC & Chem 7: 12/15/18 07:17 12/15/18 07:17 Labs: Short CBC 12/14/18 Range/Units 23:38 WBC 8.9 (4.3-11.1) K/mcL Hgb 8.6 L (11.5-15.4) g/dL Hct 26.9 L (35.3-44.9) % Plt Count 192 (140-400) K/mcL BMP 12/14/18 23:37 Sodium 140 Potassium 3.8 Chloride 105 Carbon Dioxide 27 BUN 24 H Creatinine 1.20 Glucose 184 H Calcium 8.7 Cardiac Enzymes 12/14/18 Range/Units 23:37 Troponin I < 0.03 (< 0.04) ng/mL - ABG Interpretation ABG results: PT/INR, D-dimer PT 12.0 Seconds (9.4-12.1) 12/14/18 23:37 - Pulse Oximetry Interpretation Digit-Finger Pulse Oximetry Readin (On ambient air) - Impressions Impressions CT/CT chest wo con IMPRESSION: Bronchial wall thickening and diffusely distributed bilateral punctate ill-defined centrilobular nodules in branching configuration, likely infectious airways disease. Pericardial effusion measuring to 1.3 cm in thickness. 9 mm noncalcified nodule within the left lower lobe. See recommendation below for follow-up.. RECOMMENDATIONS: Fleischner Society guidelines for follow-up and management of incidentally detected pulmonary nodules: Single Solid Nodule: Nodule size greater than 8 mm In a low-risk patient, consider CT at 3 months, PET/CT, or tissue sampling. In a high-risk patient, consider CT at 3 months, PET/CT, or tissue sampling. . - Low risk patients include individuals with minimal or absent history of smoking and other known risk factors. - High risk patients include individuals with a history or smoking or known risk factors. Radiology 2017 http://pubs.rsna.org/doi/full/10.1148/radiol.[email or web address] D/ / Lissy Velasquez Cha, MD / Lissy Velasquez Cha, MD Interpreting Provider: Lissy Velasquez Cha, MD <Violeta Sagastume - Last Filed: 12/15/18 13:39> (1) CVA (cerebral vascular accident) Qualifiers: CVA mechanism: unspecified Qualified Code(s): I63.9 - Cerebral infarction, unspecified (2) Diabetes type 2, controlled Qualifiers: Diabetes mellitus senior care insulin use: with senior care use Diabetes mellitus complication status: with skin complications Diabetes mellitus complication detail: with foot ulcer Qualified Code(s): E11.621 - Type 2 diabetes mellitus with foot ulcer; L97.509 - Non-pressure chronic ulcer of other part of unspecified foot with unspecified severity; Z79.4 - custodial (current) use of insulin (3) Left serous otitis media Qualifiers: Chronicity: acute Recurrence: non-recurrent Qualified Code(s): H65.02 - Acute serous otitis media, left ear (4) Diabetic foot ulcer Qualifiers: Diabetic foot ulcer location: midfoot Diabetes mellitus type: type 1 Laterality: right Non-pressure ulcer stage: unspecified non-pressure ulcer stage Qualified Code(s): E10.621 - Type 1 diabetes mellitus with foot ulcer; L97.419 - Non-pressure chronic ulcer of right heel and midfoot with unspecified severity (6) ICAO (internal carotid artery occlusion) Qualifiers: Laterality: right Qualified Code(s): I65.21 - Occlusion and stenosis of right carotid artery (9) Hypothyroidism Qualifiers: Hypothyroidism type: unspecified Qualified Code(s): E03.9 - Hypothyroidism, unspecified (10) Anemia Qualifiers: Anemia type: unspecified type Qualified Code(s): D64.9 - Anemia, unspecified <Brandon Redman - Last Filed: 12/15/18 16:27> (1) Community acquired pneumonia Qualifiers: Laterality: unspecified laterality Qualified Code(s): J18.9 - Pneumonia, unspecified organism (2) Left serous otitis media Qualifiers: Chronicity: acute Recurrence: non-recurrent Qualified Code(s): H65.02 - Acute serous otitis media, left ear (4) ICAO (internal carotid artery occlusion) Qualifiers: Laterality: right Qualified Code(s): I65.21 - Occlusion and stenosis of right carotid artery (5) Diabetic foot ulcer Qualifiers: Diabetic foot ulcer location: midfoot Diabetes mellitus type: type 1 Laterality: right Non-pressure ulcer stage: unspecified non-pressure ulcer stage Qualified Code(s): E10.621 - Type 1 diabetes mellitus with foot ulcer; L97.419 - Non-pressure chronic ulcer of right heel and midfoot with unspecified severity (6) Diabetes type 2, controlled Qualifiers: Diabetes mellitus patient support partner insulin use: with patient support partner use Diabetes mellitus complication status: with skin complications Diabetes mellitus complication detail: with foot ulcer Qualified Code(s): E11.621 - Type 2 diabetes mellitus with foot ulcer; L97.509 - Non-pressure chronic ulcer of other part of unspecified foot with unspecified severity; Z79.4 - custodial (current) use of insulin (9) Anemia Qualifiers: Anemia type: iron deficiency Iron deficiency anemia type: unspecified iron deficiency Qualified Code(s): D50.9 - Iron deficiency anemia, unspecified (10) Hypothyroidism Qualifiers: Hypothyroidism type: unspecified Qualified Code(s): E03.9 - Hypothyroidism, unspecified (11) Constipation Qualifiers: Constipation type: slow transit constipation Qualified Code(s): K59.01 - Slow transit constipation
[2018-12-15 07:44] LABS: Basophils % 0.2 %; Eosinophils # 0.1 K/mcL (0.0-0.6); Eosinophils % 1.1 %; Hematocrit 25.1 % (35.3-44.9); Hemoglobin 7.9 g/dL (11.5-15.4); Immature Granulocytes % 0.2 % (0-4); Lymphocytes # 2.5 K/mcL (0.6-4.6); Lymphocytes % 27.3 %; Mean Corpuscular HGB Conc 31.5 g/dL (31.6-35.5); Mean Corpuscular Hemoglobin 29.3 pg (28.0-33.3); Mean Platelet Volume 11.1 fL (9.4-12.4); Monocytes # 0.5 K/mcL (0.0-1.3); Monocytes % 5.8 %; Neutrophils # 5.9 K/mcL (1.6-8.9); Platelet Count 189 K/mcL (140-400); Red Cell Distribution Width 14.6 % (11.5-14.5); Segmented Neutrophils % 65.4 %
[2018-12-15 08:21] LABS: Albumin 3.3 g/dL (3.5-5.7); Albumin/Globulin Ratio 1.2 (1.1-2.2); Bilirubin,Total 0.3 mg/dL (0.3-1.0); Calcium 8.8 mg/dL (8.6-10.3); Globulin 2.7 g/dL (2.4-3.5); Magnesium 1.9 mg/dL (1.6-2.6); Potassium 3.8 mEq/L (3.5-5.1)
[2018-12-15 08:52] LABS: % Iron Saturation 8 % (15-50); Iron 26 mcg/dL (50-170); Transferrin 222 mg/dL (203-362)
[2018-12-15] MEDS ORDERED: Levofloxacin 750 MG/150 ML 750 MG/150 ML BAG IVPB SCH (09:00)
[2018-12-15 09:09] LABS: Ferritin 70 ng/mL (10-120)
[2018-12-15 09:14] LABS: Folate 14.6 ng/mL (3.0-16.0)
[2018-12-15] MEDS: Multivit/Ca/Min/Fe/FA 1 TAB TABLET PO SCH (09:25)
[2018-12-15] MEDS: Cyclosporine [Restasis] OP SCH ×2 (09:26→21:56)
[2018-12-15] MEDS: Fluticasone Propionate Nasal 50 MCG/SPRAY BOTTLE NS SCH (09:26)
[2018-12-15] MEDS: traMADol 50 MG TABLET PO PRN ×2 (12:07→22:03)
--- NOTE | 2018-12-15 15:15 | Neurology - Consult Note ---
Date of Encounter: 12/15/18 Time of Encounter: 15:11 Assessment and Plan (1) Facial paresthesia Current Visit: Yes Status: Acute At this time I am unable to confirm any evidence of an acute stroke. MRI scan of the brain with diffusion images has been completed and did not reveal evidence of an acute diffusion injury. She does however have his several scattered lacunar infarcts involving the basal ganglia and deep white matter symmetrically. And there is also evidence of a previous infarct in the territory of the right anterior cerebral artery or perhaps it may have been relative to a watershed infarct. In any regard I see no evidence of an acute ischemic event. I do however find that she does have a chronically occluded right internal carotid artery, and overall she seems to be in poor medical health with diabetes being poorly controlled her blood sugars have been running in the 180s, and her hypertension is also poorly controlled with systolic pressures in the 180s and diastolics in the 90s. Unfortunately there is not much to do from a neurologic perspective acutely. I would simply recommend that she maintain her current stroke regimen of Plavix, antihypertensives therapy and aggressive management of her diabetes and hyperlipidemia. I am not certain as to whether noncompliance, or other social issues are at play. Might consider social economist consultation to assess home environment. I will reevaluate her at your request. History of Present Illness HPI: The chart was reviewed, the patient was seen and examined. Ms. Westbrook is a 68 year old female who is seen for neurologic consultation at the request of the hospitalist secondary to strokelike symptoms. She presented with symptoms of speech difficulty as well as complaints of left facial numbness along with bilateral lower extremity weakness. She did have a mild headache associated which has improved. She does have a history of migraine headaches but felt that the migraine she generally experiences was different from the headache she had at the onset of these symptoms. She does have a history of uncontrolled diab etes as well as a totally occluded right internal carotid artery. I personally reviewed the MRI scan of the brain was negative for acute diffusion injury. However does reveal multiple lacunar infarcts involving the basal ganglia and deep white matter bilaterally. There is also evidence of an infarct which is perhaps due to right anterior cerebral artery compromise versus watershed infarcts on the right. Additionally she also has significant cortical atrophy. She complains of ataxic involuntary movements of the right upper extremity which have been present since "stroke #3". She is also been hypertensive since admission with blood pressure averaging in the 180s systolic and 90s diastolic. She has bandage on the right foot when she said it "busted". Patient is awake and alert and does a fair job of giving her own history. Apparently a stroke alert was implemented through our ED however the patient declined to receive TPA. Past Med Surg Social Fam HX - Past Medical History Medical history: CHF, COPD, coronary artery disease, CVA, diabetes, hypertension, peripheral artery disease Additional medical history: ishemic stroke, DJD Psychiatric history: anxiety, depression - Past Surgical History Surgical History: angioplasty/stent, orthopedic, other - Social History Smoking Status: Never smoker Smokeless Tobacco Status: No Alcohol use: none Drug use: none - Family History Mother Living Status: Hx Family Endocrine Disorder: Yes (diabetes) Medications and Allergies Acetaminophen [Tylenol] 500 mg PO Q6HR 12/15/18 [History] Albuterol Sulfate [Ventolin Hfa] 1 puff IH Q6H PRN 12/15/18 [History] Atorvastatin [Lipitor] 80 mg PO HS 12/15/18 [History] Carvedilol [Coreg] 6.25 mg PO BIDWM 12/15/18 [History] Clopidogrel [Plavix] 75 mg PO DAILY 12/15/18 [History] Cyclosporine [Restasis] 1 each OP BID 12/15/18 [History] Docusate [Colace] 100 mg PO BID 12/15/18 [History] Esomeprazole Magnesium [Nexium] 40 mg PO DAILY 12/15/18 [History] Famotidine [Pepcid] 40 mg PO DAILY 12/15/18 [History] Ferrous Sulfate [Iron] 325 mg PO DAILY 12/15/18 [History] Fluticasone Propionate [Flovent Diskus] 2 spray IH DAILY 12/15/18 [History] Furosemide [Lasix] 40 mg PO DAILY 12/15/18 [History] Insulin ASPART [Novolog Flexpen] 100 unit SQ TIDWM PRN 12/15/18 [History] Levothyroxine Sodium [Levoxyl] 75 mcg PO 0630 12/15/18 [History] Levothyroxine Sodium [Synthroid] 200 mcg PO 0630 12/15/18 [History] Lisinopril [Zestril] 40 mg PO DAILY 12/15/18 [History] Multivit-Min/Iron/Folic Acid/K [Adults Multivitamin Tablet] 1 each PO DAILY 12/15/18 [History] Mupirocin [Bactroban Oint] 1 appl TP BID 12/15/18 [History] Pregabalin [Lyrica] 75 mg PO HS 12/15/18 [History] Restasis 12/15/18 [History] Sennosides/Docusate Sodium [Senna Plus] 1 each PO BID 12/15/18 [History] Sodium Chloride [Saline Nasal Mist] 126 ml NS DAILY 12/15/18 [History] Spironolactone [Aldactone] 25 mg PO DAILY 12/15/18 [History] Tizanidine HCl [Zanaflex] 4 mg PO BID PRN 12/15/18 [History] Allergy/AdvReac Type Severity Reaction Status Date / Time aspirin Allergy Unresponsiv Verified 12/14/18 23:43 e Penicillins [PCN] Allergy Unresponsiv Verified 12/14/18 23:43 e Sulfa (Sulfonamide Allergy Unresponsiv Verified 12/14/18 23:43 Antibiotics) e All Systems: The remainder of the systems were reviewed and are negative Review of Systems: The balance of the systems review is negative. Physical Examination - Vital Signs Vital Signs: Initial Vital Signs Temp Pulse Resp BP Pulse Ox 98.1 F 89 18 188/104 100 12/14/18 23:15 12/14/18 23:15 12/14/18 23:15 12/14/18 23:15 12/14/18 23:15 - Exam Exam: General Examination: *CONSTITUTIONAL: normal *EYES: pupils equal, round, reactive to light and accommodation, conjunctiva clear without masses or ulcerations, fundi normal. *CARDIOVASCULAR patient's left foot does appear to be edematous as well as poor hygiene care. Her right foot is wrapped in the gauze. And is edematous as well. Refer to vital signs Musculoskeletal: *GAIT AND STATION gait is not assessed. 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 She has an involuntary tremor of the right upper extremity which is worse with activity. She has normal strength of the left lower extremity, the right leg is externally rotated strength is 4/5 of the right lower extremity. *MUSCLE TONE IN THE UPPER AND LOWER EXTREMITIES is a significant action tremor which appears pathologic of the right upper extremity. The tremor is sometimes present at rest as well. Neurological: *ORIENTATION to time and place *RECURRENT AND REMOTE MEMORY intact *ATTENTION AND CONCENTRATION are normal *LANGUAGE FUNCTION is no agnosia or aphasia, patient's speech is however dysarthric. *FUND OF KNOWLEDGE aware of current events, past history, vocabulary *MENTAL attention span and concentration normal. *CN II optic fundi were normal, no papilledema noted. *CN III,IV, PERRLA extraocular eye movements were full, no nystagmus and no ptosis noted. *CN V shows numbness of the left face. *CN VII shows left facial weakness. *CN VIII shows no significant hearing loss on examination in the office. *CN IX,,X palate elevated symmetrically and normal gag reflex was noted. *CN XI normal strength in the sternocleidomastoid muscles, symmetrical shoulder shrugging. *CN XII tongue protruded in the midline, with normal strength and movement. *SENSORY EXAMINATION there is patchy numbness of both lower extremities, patient may not be completely reliable for the sensory exam. *REFLEXES: deep tendon reflexes were diminished throughout. *CEREBELLAR TESTING patient can perform finger to nose with the left upper extremity without difficulty however she is grossly ataxic when performing right [id number]. *PAIN LEVEL Results - Laboratory Findings CBC and BMP: 12/15/18 07:17 12/15/18 07:17 Abnormal lab findings: Abnormal lab results RBC 2.70 M/mcL (3.82-4.97) L 12/15/18 07:17 Hgb 7.9 g/dL (11.5-15.4) L 12/15/18 07:17 Hct 25.1 % (35.3-44.9) L 12/15/18 07:17 MCHC 31.5 g/dL (31.6-35.5) L 12/15/18 07:17 RDW 14.6 % (11.5-14.5) H 12/15/18 07:17 APTT 36.1 Seconds (26.0-36.0) H 12/14/18 23:37 Est GFR ( Amer) 58 (> 60) L 12/15/18 07:17 Est GFR (Non-Af Amer) 48 (> 60) L 12/15/18 07:17 Glucose 173 mg/dL (70-105) H 12/15/18 07:17 POC Glucose 155 mg/dL (70-99) H 12/15/18 02:24 Iron 26 mcg/dL (50-170) L 12/15/18 07:50 % Saturation 8 % (15-50) L 12/15/18 07:50 AST 74 Units/L (13-39) H 12/15/18 07:17 ALT 100 Units/L (7-52) H 12/15/18 07:17 Serum Total Protein 6.0 g/dL (6.4-8.9) L 12/15/18 07:17 Albumin 3.3 g/dL (3.5-5.7) L 12/15/18 07:17 Consult Discharge Plan - Plan Referrals: NONE,PCP [Primary Care Provider] -
[2018-12-15] MEDS ORDERED: MOM Conc 10 ML UD.LIQ PO PRN (15:53)
[2018-12-15] MEDS ORDERED: *HR* Labetalol 20 MG/4 ML SYRINGE IVP PRN (15:55)
[2018-12-15] MEDS: Insulin LISPRO 300 UNITS/3 ML VIAL SQ SCH ×2 (17:15→21:56)
[2018-12-15] MEDS: *HR* Labetalol 20 MG/4 ML SYRINGE IVP PRN (17:15)
[2018-12-16 04:22] LABS: Basophils % 0.5 %; Eosinophils # 0.1 K/mcL (0.0-0.6); Eosinophils % 1.5 %; Hematocrit 24.1 % (35.3-44.9); Hemoglobin 7.7 g/dL (11.5-15.4); Immature Granulocytes % 0.2 % (0-4); Lymphocytes # 2.4 K/mcL (0.6-4.6); Lymphocytes % 40.1 %; Mean Corpuscular Hemoglobin 29.6 pg (28.0-33.3); Mean Corpuscular Volume 92.7 fL (83.0-100.0); Mean Platelet Volume 10.6 fL (9.4-12.4); Monocytes # 0.3 K/mcL (0.0-1.3); Monocytes % 5.2 %; Neutrophils # 3.1 K/mcL (1.6-8.9); Platelet Count 178 K/mcL (140-400); Red Cell Distribution Width 14.6 % (11.5-14.5); Segmented Neutrophils % 52.5 %
[2018-12-16 04:38] LABS: Alanine Aminotransferase 69 Units/L (7-52); Albumin/Globulin Ratio 1.1 (1.1-2.2); Alkaline Phosphatase 63 Units/L (34-104); Aspartate Amino Transferase 28 Units/L (13-39); BUN/Creatinine Ratio 17 (6-26); Bilirubin,Total 0.5 mg/dL (0.3-1.0); Blood Urea Nitrogen 18 mg/dL (8-23); Calcium 8.1 mg/dL (8.6-10.3); Carbon Dioxide 25 mEq/L (23-29); Chloride 109 mEq/L (98-107); Globulin 2.7 g/dL (2.4-3.5); Glucose 135 mg/dL (70-105); Osmolality,Calculated 298 (280-300); Potassium 3.7 mEq/L (3.5-5.1); Sodium 142 mEq/L (136-145); Total Protein 5.7 g/dL (6.4-8.9); eGFR For Non-African Americans 51 (> 60)
[2018-12-16] MEDS: Famotidine 20 MG TABLET PO SCH (05:18)
[2018-12-16] MEDS: *HR* Heparin 5,000 UNIT/ML VIAL SQ SCH ×3 (05:18→23:41)
--- NOTE | 2018-12-16 08:18 | Internal Med Progress Note ---
<Violeta Sagastume - Last Filed: 12/16/18 15:34> Hospitalist Progress Note - Encounter Date of Encounter: 12/16/18 - Exam Vitals: Temp Pulse Resp BP Pulse Ox 98.0 F 70 14 158/91 97 12/16/18 10:50 12/16/18 10:50 12/16/18 10:50 12/16/18 10:50 12/16/18 10:50 - Assessment and Plan (1) CVA (cerebral vascular accident) Current Visit: Yes Status: Chronic (2) Diabetes type 2, controlled Current Visit: Yes Status: Chronic (3) Left serous otitis media Current Visit: Yes Status: Acute (4) Diabetic foot ulcer Current Visit: Yes Status: Chronic (5) DVT prophylaxis Current Visit: Yes Status: Acute (6) ICAO (internal carotid artery occlusion) Current Visit: Yes Status: Acute (7) Pulmonary nodules Current Visit: Yes Status: Acute (8) HTN (hypertension) Current Visit: Yes Status: Chronic (9) Hypothyroidism Current Visit: No Status: Chronic (10) Anemia Current Visit: Yes Status: Chronic - Time Spent with Patient Total time spent is greater than 50% in coordination of care (as documented) at patient's floor/unit and/or counseling patient: Internal Medicine: Result - Labs CBC & Chem 7: 12/16/18 04:01 12/16/18 04:01 Labs: Short CBC 12/16/18 Range/Units 04:01 WBC 6.0 (4.3-11.1) K/mcL Hgb 7.7 L (11.5-15.4) g/dL Hct 24.1 L (35.3-44.9) % Plt Count 178 (140-400) K/mcL Neutrophils # 3.1 (1.6-8.9) K/mcL BMP 12/16/18 04:01 Sodium 142 Potassium 3.7 Chloride 109 H Carbon Dioxide 25 BUN 18 Creatinine 1.08 Glucose 135 H Calcium 8.1 L Liver Function 12/16/18 Range/Units 04:01 Total Bilirubin 0.5 (0.3-1.0) mg/dL AST 28 (13-39) Units/L ALT 69 H (7-52) Units/L Alkaline Phosphatase 63 (34-104) Units/L Albumin 3.0 L (3.5-5.7) g/dL - ABG Interpretation ABG results: PT/INR, D-dimer PT 12.0 Seconds (9.4-12.1) 12/14/18 23:37 - Impressions Impressions Head CTA 12/14/18 23:17 IMPRESSION: 1. Complete occlusion of the cervical right internal carotid artery at its origin, which becomes reconstituted by collateral flow at the [place]. 2. Mild atherosclerotic disease of the left internal carotid artery, without evidence of flow-limiting stenosis by NASCET criteria. 3. No evidence of intracerebral arterial stenosis, filling defect, or aneurysm. 4. Patent posterior circulation, without evidence of stenosis, filling defect, or aneurysm. 5. Chronic right frontal infarct. 6. Multiple scattered nonspecific biapical pulmonary nodules, the largest measuring 6 mm within the right upper lobe. Suggest further characterization with a routine non urgent follow-up chest CT. D/ / 12/15/2018 07:26:58 Maxim Apple MD / melvin Interpreting Provider: Maxim Apple MD Neck CTA 12/14/18 23:17 IMPRESSION: 1. Complete occlusion of the cervical right internal carotid artery at its origin, which becomes reconstituted by collateral flow at the [place]. 2. Mild atherosclerotic disease of the left internal carotid artery, without evidence of flow-limiting stenosis by NASCET criteria. 3. No evidence of intracerebral arterial stenosis, filling defect, or aneurysm. 4. Patent posterior circulation, without evidence of stenosis, filling defect, or aneurysm. 5. Chronic right frontal infarct. 6. Multiple scattered nonspecific biapical pulmonary nodules, the largest measuring 6 mm within the right upper lobe. Suggest further characterization with a routine non urgent follow-up chest CT. D/ / 12/15/2018 07:26:58 Maxim Apple MD / melvin Interpreting Provider: Maxim Apple MD Brain MRI 12/15/18 04:13 IMPRESSION: 1. No acute infarct or acute intracranial process identified. 2. Remote watershed infarct within the right cerebral hemisphere. 3. Remote lacunar infarcts within the right basal ganglia and thalami. D/ / 12/15/2018 13:06:45 Octavio Jean Baptiste MD / melvin Interpreting Provider: Octavio Jean Baptiste MD Echocardiogram 12/15/18 04:21 Impressions: LVEF 55-60%. Moderate concentric left ventricular hypertrophy. Moderate left ventricular diastolic dysfunction. Normal right ventricular structure and function. Normal LV chamber size, wall thickness and function. No evidence of PFO with agitated saline contrast. No significant valvular dysfunction The non coronary cusp of the aortic valve and the tip of the anterior mitral valve leaflet are thickened and echogenic, probably with calcified material. Clinical correlation is advised. No evidence of pulmonary hypertension. Left Ventricular Wall Motion: Rest Echo Findings All wall segments showed normal motion. Findings: Study Quality * Technically adequate exam. ECG Findings * Normal sinus rhythm. Left Ventricle * LVEF 55-60%. * Moderate concentric left ventricular hypertrophy. * Moderate left ventricular diastolic dysfunction. * Normal LV chamber size. Right Ventricle * Normal right ventricular structure and function. Left Atrium * Normal left atrial size. Right Atrium * Normal right atrial size. Interatrial Septum * No evidence of PFO with agitated saline contrast. Aortic Valve * Trileaflet aortic valve. * The non coronary cusp is thickened and echogenic * No aortic regurgitation. * No aortic stenosis. Mitral Valve * The tip of the anterior mitral valve leaflet is thickened and echogenic * No mitral regurgitation. * No mitral stenosis. Tricuspid Valve * Trace tricuspid regurgitation. * No tricuspid stenosis. * Normal tricuspid valve structure. * No evidence of pulmonary hypertension. Pulmonic Valve * Trace pulmonic regurgitation. Aorta * Normally sized aortic root. Pericardium * There is a trivial pericardial effusion present. IVC * The IVC is dilated. Dilated coronary sinus Chest CT 12/15/18 07:34 IMPRESSION: Bronchial wall thickening and diffusely distributed bilateral punctate ill-defined centrilobular nodules in branching configuration, likely infectious airways disease. Pericardial effusion measuring to 1.3 cm in thickness. 9 mm noncalcified nodule within the left lower lobe. See recommendation below for follow-up.. RECOMMENDATIONS: Fleischner Society guidelines for follow-up and management of incidentally detected pulmonary nodules: Single Solid Nodule: Nodule size greater than 8 mm In a low-risk patient, consider CT at 3 months, PET/CT, or tissue sampling. In a high-risk patient, consider CT at 3 months, PET/CT, or tissue sampling. . - Low risk patients include individuals with minimal or absent history of smoking and other known risk factors. - High risk patients include individuals with a history or smoking or known risk factors. Radiology 2017 http://pubs.rsna.org/doi/full/10.1148/radiol.[email or web address] D/ / Lissy Velasquez Cha, MD / Lissy Velasquez Cha, MD Interpreting Provider: Lissy Velasquez Cha, MD Consult Discharge Plan - Plan Referrals: NONE,PCP [Primary Care Provider] - - Attending Attestation I examined this patient and my medical decision-making was reviewed with the Resident Physician Dr Brennan. I agree with the documented findings, disposition and treatment plan as described except to the extent set forth below. Ms Westbrook was admitted today with dysarthria and parasthesias, suspected pna and chronic foot wound awake eating breakfast, no family present. Discussed MRI results. She still feels as if speech is slurred and her swallowing capabilites are differnt. Trouble initaitng swallow. Agreeable to seeing PHYSICIAN INTENSIVIST again. of note, she is eating in front of me and having no choking or coughing with solids or liquids. She cont to have numbness left leg/thigh and feels LLE and possible LUE feel "a little weaker than normal". no change to right sided residual deficits. no fevers, chills, n/v. Notes recent "double pna", + cough with sputum sometimes thick and white but recently yellow. no sob or wheezing. gen- awake appears stated age cv- reg rate and rhythm, normal s1,s2, no murmurs appreciated, no le edema lungs- ctabl, no wheezing, rhonchi or crackles, normal resp effort on ra skin- right foot dressing c/d/i neuro- AAOx3, some mild left facial droop otherwise CN grossly intact, RUE tremor with initiation of movement which is baseline strength 4/5, LUE strength 5/5. LLE strength 3/5 with pt able to lift against gravity but reduced dorsifelexion/plantarflexion strength noted. Sensation to light touch intact and difficult for her to discern what is baseline given hx of prior multiple strokes Dysarthria/ Left Ext Parasthesias- MRI did not show evidence of acute infarct as cause of sxs, acute CVA ruled out Vasculopathy with hx CVAs (multiple), CAD and PVD -pt presented within time window for tpa and [facility] recommended but she refused -CTA reviewed by admitter and given RCA occulsion had [facility] review and no intervention needed, chronic with collateral per report/signout -severe reaction to asa therefore plavix + statin (daughter notes home plavix had been held recently for anemia) -pt/ot/audiologist/sw -MRI head no acute infarct identified -echo moderate DD, partially suspected calficied portionso f AV and MV (may fu outpt), no acute findings -neuro rec cont current med regimen, bp control and diabetes management -BP control now that no acute infarct goal is <150/90 today given presenting BPs, will slowly bring down Bp as suspect she is running quite high at home -asl PHYSICIAN INTENSIVIST to re eval Chronic anemia, bl appears to be right around 8.6- stable, cont to monitor, cont iron, occult stool neg, will need to fu outpt Suspected pna on ct chest - cont vanc + zosyn as below, attempting to identify organism Foot wound- empiric abx started, consult podiatry, obtain wound cx (she has been refusing) DM- highly sensitive to insulin with hypoglycemic events in past- bl is 150-180 at home, only treat if >200, A1C pending HTN- cont coreg, adjust dose as needed, will require outpt fu Elevated TSH on synthroid- check t4 and adjust dose if needed Stable chronic diastolic CHF- cont home meds further diagnoses and plan as noted by resident <Kevin Brennan - Last Filed: 12/16/18 17:52> Hospitalist Progress Note - Encounter Date of Encounter: 12/16/18 Time of Encounter: 09:55 - Subjective Interval History: Pt seen and examined at bedside. No new or acute complaints. Pt continues to request that someone fixes her head. No fever, chills, chest pain, shortness of breath, abdominal pain, nausea, vomiting, or dizziness. - Exam Vitals: Temp Pulse Resp BP Pulse Ox 98 F 72 18 157/81 96 12/16/18 07:10 12/16/18 07:10 12/16/18 07:10 12/16/18 07:10 12/16/18 07:10 Exam: General: cooperative, A&O X 3, pleasant, no acute distress, answers questions appropriately Head:atraumatic, normal inspection Eyes: PERRL, EOMI, sclera anicteric, conjunctiva pink Neck: full ROM, supple Lungs: CTAB. non-labored breathing. no rales, rhonchi, or wheezes Heart: distant heart sounds, RRR, +S1, +S2. No murmurs, clicks, or rubs appreciated GI: abdomen soft, non-tender, non-distended, normal bowel sounds Extremities: warm, radial pulses palpable and symmetrical. No calf tenderness, pedal edema, tenderness. Right dorsal foot ulcer, dressing in place. Neuro: alert, oriented X3, strengths equal and symetr throughout, right sided facial droop (subtle), speech deficit with mild slurred speech, right upper extremity intention tremor, chronic per daughter Skin: dry, warm, right dorsal foot ulcer, dressing in place - Assessment and Plan (1) Facial paresthesia Current Visit: Yes Status: Chronic Assessment and Plan: CT head revealed diffuse atrophic changes with findings suggesting chronic microvascular ischemia and an old right frontal lobe infarct. Head CTA revealed no evidence of intracerebral arterial stenosis, filling defect, or aneurysm. Patent posterior circulation, without evidence of stenosis, filling defect, or aneurysm. Chronic right frontal infarct. [facility] recommended TPA. However, patient and family refused and preferred to pursue a workup here at [place]. Furthermore, most of her symptoms had resolved at that point. Dysplasia is slowly improving. 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 MRI brain revealed no acute infarct or acute intracranial process identified. Remote watershed infarct within the right cerebral hemisphere. Remote lacunar infarcts within the right basal ganglia and thalami. ECHO revealed LVEF 55-60%, moderate concentric left ventricular hypertrophy, moderate left ventricular diastolic dysfunction, the non coronary cusp of the aortic valve and the tip of the anterior mitral valve leaflet are thickened and echogenic, probably with calcified material. No evidence of pulmonary hypertension. Continue statin. Continue Plavix. Patient was not given Aspirin due to previous Aspirin allergy. Speech therapy recommended a clinically altered diabetic diet and assistance with all meals. PT/OT consulted Continue monitoring per stroke protocol. Neurology following, appreciate their recommendations. (2) Diabetes type 2, controlled Current Visit: Yes Status: Chronic Assessment and Plan: Daughter reports brittle diabetes and abrupt hyoglycemia when she takes insulin. Hemoglobin A1c 7.7 Monitor glucose closely, continue low dose SSI ACHS. (3) Left serous otitis media Current Visit: Yes Status: Acute Assessment and Plan: Left TM with serous effusion Wound culture pending Continue vancomycin and Levaquin (day 2) Continue pain control as needed Monitor clinically and outpatient follow up with PCP. (4) Diabetic foot ulcer Current Visit: Yes Status: Chronic Assessment and Plan: Chronic foot wound appears to be infected and may need to be debrided. Wound culture from 11/26/18 revealed Enterobacter cloacae complex, resistant to Augmentin and Cefazolin. Wound culture pending Continue vancomycin and Levaquin (day 2) Consulted wound care. Consulted podiatry for further evaluation (5) ICAO (internal carotid artery occlusion) Current Visit: Yes Status: Acute Assessment and Plan: CTA neck revealed complete occlusion of the cervical right internal carotid artery at its origin, which becomes reconstituted by collateral flow at the [place]. Mild atherosclerotic disease of the left internal carotid artery, without evidence of flow-limiting stenosis by NASCET criteria. [facility] neurology did not recommend intervention at this time. Continue risk factor modification. Recommend outpatient follow-up with vascular surgery. (6) Pulmonary nodules Current Visit: Yes Status: Acute Assessment and Plan: CTA neck revealed multiple scattered nonspecific biapical pulmonary nodules, the largest measures 6 mm within the right upper lobe. Chest CT revealed 9 mm noncalcified nodule within the left lower lobe, consider CT at 3 months, PET/CT, or tissue sampling (7) HTN (hypertension) Current Visit: Yes Status: Chronic Assessment and Plan: Blood pressure is elevated Resume home Coreg. Labetalol ordered prn BP > 160/90 Continue monitoring. (8) Hypothyroidism Current Visit: No Status: Chronic Assessment and Plan: TSH level 6.667 Continue Synthroid. (9) Anemia Current Visit: Yes Status: Chronic Assessment and Plan: Appears chronic since November 2018. No active signs of bleeding. Iron studies reveal iron deficiency anemia B12 and folate levels are WNL Fecal occult blood test negative Continue home iron supplementation. DVT Prophylaxis: Heparin SQ. - Time Spent with Patient Total time spent is greater than 50% in coordination of care (as documented) at patient's floor/unit and/or counseling patient: Internal Medicine: Result - Labs CBC & Chem 7: 12/16/18 04:01 12/16/18 04:01 Labs: Short CBC 12/16/18 Range/Units 04:01 WBC 6.0 (4.3-11.1) K/mcL Hgb 7.7 L (11.5-15.4) g/dL Hct 24.1 L (35.3-44.9) % Plt Count 178 (140-400) K/mcL Neutrophils # 3.1 (1.6-8.9) K/mcL BMP 12/15/18 12/16/18 07:17 04:01 Sodium 139 142 Potassium 3.8 3.7 Chloride 107 109 H Carbon Dioxide 27 25 BUN 22 18 Creatinine 1.13 1.08 Glucose 173 H 135 H Calcium 8.8 8.1 L Liver Function 12/15/18 12/16/18 Range/Units 07:17 04:01 Total Bilirubin 0.3 0.5 (0.3-1.0) mg/dL AST 74 H 28 (13-39) Units/L ALT 100 H 69 H (7-52) Units/L Alkaline Phosphatase 82 63 (34-104) Units/L Albumin 3.3 L 3.0 L (3.5-5.7) g/dL - ABG Interpretation ABG results: PT/INR, D-dimer PT 12.0 Seconds (9.4-12.1) 12/14/18 23:37 - Impressions Impressions Head CTA 12/14/18 23:17 IMPRESSION: 1. Complete occlusion of the cervical right internal carotid artery at its origin, which becomes reconstituted by collateral flow at the [place]. 2. Mild atherosclerotic disease of the left internal carotid artery, without evidence of flow-limiting stenosis by NASCET criteria. 3. No evidence of intracerebral arterial stenosis, filling defect, or aneurysm. 4. Patent posterior circulation, without evidence of stenosis, filling defect, or aneurysm. 5. Chronic right frontal infarct. 6. Multiple scattered nonspecific biapical pulmonary nodules, the largest measuring 6 mm within the right upper lobe. Suggest further characterization with a routine non urgent follow-up chest CT. D/ / 12/15/2018 07:26:58 Maxim Apple MD / melvin Interpreting Provider: Maxim Apple MD Neck CTA 12/14/18 23:17 IMPRESSION: 1. Complete occlusion of the cervical right internal carotid artery at its origin, which becomes reconstituted by collateral flow at the [place]. 2. Mild atherosclerotic disease of the left internal carotid artery, without evidence of flow-limiting stenosis by NASCET criteria. 3. No evidence of intracerebral arterial stenosis, filling defect, or aneurysm. 4. Patent posterior circulation, without evidence of stenosis, filling defect, or aneurysm. 5. Chronic right frontal infarct. 6. Multiple scattered nonspecific biapical pulmonary nodules, the largest measuring 6 mm within the right upper lobe. Suggest further characterization with a routine non urgent follow-up chest CT. D/ / 12/15/2018 07:26:58 Maxim Apple MD / melvin Interpreting Provider: Maxim Apple MD Brain MRI 12/15/18 04:13 IMPRESSION: 1. No acute infarct or acute intracranial process identified. 2. Remote watershed infarct within the right cerebral hemisphere. 3. Remote lacunar infarcts within the right basal ganglia and thalami. D/ / 12/15/2018 13:06:45 Octavio Jean Baptiste MD / melvin Interpreting Provider: Octavio Jean Baptiste MD Echocardiogram 12/15/18 04:21 Impressions: LVEF 55-60%. Moderate concentric left ventricular hypertrophy. Moderate left ventricular diastolic dysfunction. Normal right ventricular structure and function. Normal LV chamber size, wall thickness and function. No evidence of PFO with agitated saline contrast. No significant valvular dysfunction The non coronary cusp of the aortic valve and the tip of the anterior mitral valve leaflet are thickened and echogenic, probably with calcified material. Clinical correlation is advised. No evidence of pulmonary hypertension. Left Ventricular Wall Motion: Rest Echo Findings All wall segments showed normal motion. Findings: Study Quality * Technically adequate exam. ECG Findings * Normal sinus rhythm. Left Ventricle * LVEF 55-60%. * Moderate concentric left ventricular hypertrophy. * Moderate left ventricular diastolic dysfunction. * Normal LV chamber size. Right Ventricle * Normal right ventricular structure and function. Left Atrium * Normal left atrial size. Right Atrium * Normal right atrial size. Interatrial Septum * No evidence of PFO with agitated saline contrast. Aortic Valve * Trileaflet aortic valve. * The non coronary cusp is thickened and echogenic * No aortic regurgitation. * No aortic stenosis. Mitral Valve * The tip of the anterior mitral valve leaflet is thickened and echogenic * No mitral regurgitation. * No mitral stenosis. Tricuspid Valve * Trace tricuspid regurgitation. * No tricuspid stenosis. * Normal tricuspid valve structure. * No evidence of pulmonary hypertension. Pulmonic Valve * Trace pulmonic regurgitation. Aorta * Normally sized aortic root. Pericardium * There is a trivial pericardial effusion present. IVC * The IVC is dilated. Dilated coronary sinus Chest CT 12/15/18 07:34 IMPRESSION: Bronchial wall thickening and diffusely distributed bilateral punctate ill-defined centrilobular nodules in branching configuration, likely infectious airways disease. Pericardial effusion measuring to 1.3 cm in thickness. 9 mm noncalcified nodule within the left lower lobe. See recommendation below for follow-up.. RECOMMENDATIONS: Fleischner Society guidelines for follow-up and management of incidentally detected pulmonary nodules: Single Solid Nodule: Nodule size greater than 8 mm In a low-risk patient, consider CT at 3 months, PET/CT, or tissue sampling. In a high-risk patient, consider CT at 3 months, PET/CT, or tissue sampling. . - Low risk patients include individuals with minimal or absent history of smoking and other known risk factors. - High risk patients include individuals with a history or smoking or known risk factors. Radiology 2017 http://pubs.rsna.org/doi/full/10.1148/radiol.0712847386 D/ / Lissy Velasquez Cha, MD / Lissy Velasquez Cha, MD Interpreting Provider: Lissy Velasquez Cha, MD <Violeta Sagastume - Last Filed: 12/16/18 15:34> (1) CVA (cerebral vascular accident) Qualifiers: CVA mechanism: unspecified Qualified Code(s): I63.9 - Cerebral infarction, unspecified (2) Diabetes type 2, controlled Qualifiers: Diabetes mellitus watermaster insulin use: with fdc use Diabetes mellitus complication status: with skin complications Diabetes mellitus complication detail: with foot ulcer Qualified Code(s): E11.621 - Type 2 diabetes mellitus with foot ulcer; L97.509 - Non-pressure chronic ulcer of other part of unspecifi ed foot with unspecified severity; Z79.4 - penitentiary (current) use of insulin (3) Left serous otitis media Qualifiers: Chronicity: acute Recurrence: non-recurrent Qualified Code(s): H65.02 - Acute serous otitis media, left ear (4) Diabetic foot ulcer Qualifiers: Diabetic foot ulcer location: midfoot Diabetes mellitus type: type 1 Laterality: right Non-pressure ulcer stage: unspecified non-pressure ulcer s tage Qualified Code(s): E10.621 - Type 1 diabetes mellitus with foot ulcer; L97.419 - Non-pressure chronic ulcer of right heel and midfoot with unspecified severity (6) ICAO (internal carotid artery occlusion) Qualifiers: Laterality: right Qualified Code(s): I65.21 - Occlusion and stenosis of right carotid artery (9) Hypothyroidism Qualifiers: Hypothyroidism type: unspecified Qualified Code(s): E03.9 - Hypothyroidism, unspecified (10) Anemia Qualifiers: Anemia type: iron deficiency Iron deficiency anemia type: unspecified iron deficiency Qualified Code(s): D50.9 - Iron deficiency anemia, unspecified <Kevin Brennan - Last Filed: 12/16/18 17:52> (2) Diabetes type 2, controlled Qualifiers: Diabetes mellitus watermaster insulin use: with watermaster use Diabetes mellitus complication status: with skin complications Diabetes mellitus complication detail: with foot ulcer Qualified Code(s): E11.621 - Type 2 diabetes mellitus with foot ulcer; L97.509 - Non-pressure chronic ulcer of other part of unspecified foot with unspecified severity; Z79.4 - penitentiary (current) use of insulin (3) Left serous otitis media Qualifiers: Chronicity: acute Recurrence: non-recurrent Qualified Code(s): H65.02 - Acute serous otitis media, left ear (4) Diabetic foot ulcer Qualifiers: Diabetic foot ulcer location: midfoot Diabetes mellitus type: type 1 Laterality: right Non-pressure ulcer stage: unspecified non-pressure ulcer stage Qualified Code(s): E10.621 - Type 1 diabetes mellitus with foot ulcer; L97.419 - Non-pressure chronic ulcer of right heel and midfoot with unspecified severity (5) ICAO (internal carotid artery occlusion) Qualifiers: Laterality: right Qualified Code(s): I65.21 - Occlusion and stenosis of right carotid artery (8) Hypothyroidism Qualifiers: Hypothyroidism type: unspecified Qualified Code(s): E03.9 - Hypothyroidism, unspecified (9) Anemia Qualifiers: Anemia type: iron deficiency Iron deficiency anemia type: unspecified iron deficiency Qualified Code(s): D50.9 - Iron deficiency anemia, unspecified
[2018-12-16] MEDS: Multivit/Ca/Min/Fe/FA 1 TAB TABLET PO SCH (08:49)
[2018-12-16] MEDS: Fluticasone Propionate Nasal 50 MCG/SPRAY BOTTLE NS SCH (08:50)
[2018-12-16] MEDS: Insulin LISPRO 300 UNITS/3 ML VIAL SQ SCH ×4 (08:50→20:29)
[2018-12-16] MEDS: Cyclosporine [Restasis] OP SCH ×2 (09:04→20:30)
[2018-12-16] MEDS: Acetaminophen 325 MG TABLET PO PRN (10:12)
[2018-12-16] MEDS: Nystatin Cream 15 GM TUBE TP SCH ×3 (12:19→20:29)
[2018-12-16 13:16] LABS: Estimated Average Glucose 174 mg/dl; Hemoglobin A1C 7.7 %
[2018-12-16] MEDS: traMADol 50 MG TABLET PO PRN (20:40)
[2018-12-17] MEDS: *HR* Labetalol 20 MG/4 ML SYRINGE IVP PRN ×3 (00:02→11:47)
[2018-12-17 05:41] LABS: Basophils % 0.4 %; Eosinophils # 0.1 K/mcL (0.0-0.6); Eosinophils % 2.1 %; Hematocrit 26.7 % (35.3-44.9); Hemoglobin 8.5 g/dL (11.5-15.4); Immature Granulocytes % 0.2 % (0-4); Lymphocytes # 2.5 K/mcL (0.6-4.6); Lymphocytes % 43.9 %; Mean Corpuscular HGB Conc 31.8 g/dL (31.6-35.5); Mean Corpuscular Hemoglobin 29.6 pg (28.0-33.3); Mean Platelet Volume 11.8 fL (9.4-12.4); Monocytes # 0.3 K/mcL (0.0-1.3); Monocytes % 5.7 %; Neutrophils # 2.7 K/mcL (1.6-8.9); Platelet Count 146 K/mcL (140-400); Red Blood Count 2.87 M/mcL (3.82-4.97); Red Cell Distribution Width 14.7 % (11.5-14.5); Segmented Neutrophils % 47.7 %
[2018-12-17 06:17] LABS: BUN/Creatinine Ratio 15 (6-26); Blood Urea Nitrogen 16 mg/dL (8-23); Calcium 8.5 mg/dL (8.6-10.3); Carbon Dioxide 23 mEq/L (23-29); Chloride 111 mEq/L (98-107); Glucose 98 mg/dL (70-105); Osmolality,Calculated 293 (280-300); Potassium 3.9 mEq/L (3.5-5.1); Sodium 141 mEq/L (136-145); eGFR For Non-African Americans 51 (> 60)
[2018-12-17] MEDS: Famotidine 20 MG TABLET PO SCH (06:18)
[2018-12-17] MEDS: *HR* Heparin 5,000 UNIT/ML VIAL SQ SCH ×3 (06:18→21:56)
[2018-12-17 06:43] LABS: Vancomycin,Trough 13 mcg/mL (5-10)
[2018-12-17] MEDS ORDERED: Aminoglycoside Consult 1 EACH MC ONE (07:50)
--- NOTE | 2018-12-17 08:20 | Internal Med Progress Note ---
<Violeta Sagastume - Last Filed: 12/17/18 12:54> Hospitalist Progress Note - Encounter Date of Encounter: 12/17/18 - Exam Vitals: Temp Pulse Resp BP Pulse Ox 98.4 F 74 20 199/100 97 12/17/18 11:21 12/17/18 11:21 12/17/18 11:21 12/17/18 11:21 12/17/18 11:21 - Assessment and Plan (1) Diabetes type 2, controlled Current Visit: Yes Status: Chronic (2) Left serous otitis media Current Visit: Yes Status: Acute (3) Diabetic foot ulcer Current Visit: Yes Status: Chronic (4) ICAO (internal carotid artery occlusion) Current Visit: Yes Status: Acute (5) Pulmonary nodules Current Visit: Yes Status: Acute (6) HTN (hypertension) Current Visit: Yes Status: Chronic (7) Hypothyroidism Current Visit: No Status: Chronic (8) Anemia Current Visit: Yes Status: Chronic (9) Facial paresthesia Current Visit: Yes Status: Chronic - Time Spent with Patient Total time spent is greater than 50% in coordination of care (as documented) at patient's floor/unit and/or counseling patient: Internal Medicine: Result - Labs CBC & Chem 7: 12/17/18 04:59 12/17/18 04:59 Labs: Short CBC 12/17/18 Range/Units 04:59 WBC 5.6 (4.3-11.1) K/mcL Hgb 8.5 L (11.5-15.4) g/dL Hct 26.7 L (35.3-44.9) % Plt Count 146 (140-400) K/mcL Neutrophils # 2.7 (1.6-8.9) K/mcL BMP 12/17/18 04:59 Sodium 141 Potassium 3.9 Chloride 111 H Carbon Dioxide 23 BUN 16 Creatinine 1.07 Glucose 98 Calcium 8.5 L - ABG Interpretation ABG results: PT/INR, D-dimer PT 12.0 Seconds (9.4-12.1) 12/14/18 23:37 Consult Discharge Plan - Plan Referrals: NONE,PCP [Primary Care Provider] - - Attending Attestation I examined this patient and my medical decision-making was reviewed with the Resident Physician Dr Brennan. I agree with the documented findings, disposition and treatment plan as described except to the extent set forth below. Ms Westbrook was admitted today with dysarthria and parasthesias, suspected pna and chronic foot wound awake, no change in facial and left hand numbness, no rice, cp or vision changes with bp elevation, no sob, + cough gen- awake appears stated age cv- reg rate and rhythm, normal s1,s2, no murmurs appreciated lungs- ctabl, no wheezing, rhonchi or crackles, normal resp effort on ra skin- right foot dressing c/d/i neuro- AAOx3, CN grossly intact,LUE strength 5/5. LLE strength 3/5 with pt able to lift against gravity but reduced dorsifelexion/plantarflexion strength noted. 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 -echo moderate DD, partially suspected calcified portions of AV and MV (may fu outpt), no acute findings -neuro rec cont current med regimen, bp control and diabetes management Chronic anemia, bl appears to be right around 8.6- stable, cont to monitor, cont iron, occult stool neg, will need to fu outpt Suspected pna on ct chest - cont vanc + zosyn as below, attempting to identify organism Foot wound- empiric abx started, podiatry eval pending, wound cx pending DM- highly sensitive to insulin with hypoglycemic events in past- bl is 150-180 at home, only treat if >200 HTN, uncontrolled- increase coreg, add home lisiniprol, cont to monitor will require outpt fu Stable chronic diastolic CHF- cont home meds, monitor bp , add back lasix in am further diagnoses and plan as noted by resident <Kevin Brennan - Last Filed: 12/17/18 17:23> Hospitalist Progress Note - Encounter Date of Encounter: 12/17/18 Time of Encounter: 08:38 - Subjective Interval History: Pt seen and examined at bedside. No new or acute complaints. Pt continues to request that someone fixes her head. States she continues to have a headache originating at the forehead with no radiation of the pain. No fever, chills, chest pain, shortness of breath, abdominal pain, nausea, vomiting, or dizziness. - Exam Vitals: Temp Pulse Resp BP Pulse Ox 98.2 F 71 20 173/90 95 12/17/18 07:56 12/17/18 07:56 12/17/18 07:56 12/17/18 07:56 12/17/18 07:56 Exam: General: cooperative, A&O X 3, pleasant, no acute distress, answers questions appropriately Head:atraumatic, normal inspection Eyes: PERRL, EOMI, sclera anicteric, conjunctiva pink Neck: full ROM, supple Lungs: CTAB. non-labored breathing. no rales, rhonchi, or wheezes Heart: distant heart sounds, RRR, +S1, +S2. No murmurs, clicks, or rubs appreciated GI: abdomen soft, non-tender, non-distended, normal bowel sounds Extremities: warm, radial pulses palpable and symmetrical. No calf tenderness, pedal edema, tenderness. Right dorsal foot ulcer, dressing in place. Contusion to the mid-lateral UE. Neuro: alert, oriented X3, strengths equal and symetr throughout, right sided facial droop (subtle), speech deficit with mild slurred speech, right upper extremity intention tremor, chronic per daughter Skin: dry, warm, right dorsal foot ulcer, dressing in place - Assessment and Plan (1) HTN (hypertension) Current Visit: Yes Status: Chronic Assessment and Plan: Blood pressure is elevated Increased Coreg to 12.5mg Restarted home Lisinopril since kidney functions have improved. Labetalol ordered prn BP > 160/90 Restart Lasix AM Continue monitoring. (2) Facial paresthesia Current Visit: Yes Status: Chronic Assessment and Plan: CT head revealed diffuse atrophic changes with findings suggesting chronic microvascular ischemia and an old right frontal lobe infarct. Head CTA revealed no evidence of intracerebral arterial stenosis, filling defect, or aneurysm. Patent posterior circulation, without evidence of stenosis, filling defect, or aneurysm. Chronic right frontal infarct. [facility] recommended TPA. However, patient and family refused and p referred to pursue a workup here at [place]. Furthermore, most of her symptoms had resolved at that point. Dysplasia is slowly improving. 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 MRI brain revealed no acute infarct or acute intracranial process identified. Remote watershed infarct within the right cerebral hemisphere. Remote lacunar infarcts within the right basal ganglia and thalami. ECHO revealed LVEF 55-60%, moderate concentric left ventricular hypertrophy, moderate left ventricular diastolic dysfunction, the non coronary cusp of the aortic valve and the tip of the anterior mitral valve leaflet are thickened and echogenic, probably with calcified material. No evidence of pulmonary hypertension. Continue statin. Continue Plavix. Patient was not given Aspirin due to previous Aspirin allergy. Speech therapy recommended a clinically altered diabetic diet and assistance with all meals. PT/OT consulted Continue monitoring per stroke protocol. Neurology following, appreciate their recommendations. (3) Community acquired pneumonia Current Visit: Yes Status: Suspected Assessment and Plan: Chest CT revealed bronchial wall thickening and diffusely distributed bilateral punctate ill-defined centrilobular nodules in branching configuration, likely infectious airways disease. Pericardial effusion measuring to 1.3 cm in thickness. Urine Legionella and strep pneumo antigens negative MRSA nasal swab negative Blood culture pending Continue vancomycin and Levaquin (day 3) (4) Diabetes type 2, controlled Current Visit: Yes Status: Chronic Assessment and Plan: Daughter reports brittle diabetes and abrupt hyoglycemia when she takes insulin. Hemoglobin A1c 7.7 Monitor glucose closely, continue low dose SSI ACHS. (5) Left serous otitis media Current Visit: Yes Status: Acute Assessment and Plan: Left TM with serous effusion Wound culture pending Continue vancomycin and Levaquin (day 3) Continue pain control as needed Monitor clinically and outpatient follow up with PCP. (6) Diabetic foot ulcer Current Visit: Yes Status: Chronic Assessment and Plan: Chronic foot wound appears to be infected and may need to be debrided. Wound culture from 11/26/18 revealed Enterobacter cloacae complex, resistant to Augmentin and Cefazolin. Wound culture pending Continue vancomycin and Levaquin (day 3) Consulted wound care. Consulted podiatry for further evaluation (7) ICAO (internal carotid artery occlusion) Current Visit: Yes Status: Acute Assessment and Plan: CTA neck revealed complete occlusion of the cervical right internal carotid artery at its origin, which becomes reconstituted by collateral flow at the [place]. Mild atherosclerotic disease of the left internal carotid artery, without evidence of flow-limiting stenosis by NASCET criteria. [facility] neurolog[facility] did not recommend intervention at this time. Continue risk factor modification. Recommend outpatient follow-up with vascular surgery. (8) Pulmonary nodules Current Visit: Yes Status: Acute Assessment and Plan: CTA neck revealed multiple scattered nonspecific biapical pulmonary nodules, the largest measures 6 mm within the right upper lobe. Chest CT revealed 9 mm noncalcified nodule within the left lower lobe, consider CT at 3 months, PET/CT, or tissue sampling (9) Hypothyroidism Current Visit: Yes Status: Chronic Assessment and Plan: TSH level 6.667 Free T4 1.38 Continue Synthroid. Recommend f/u with PCP for re-evaluation in 6 weeks (10) Anemia Current Visit: Yes Status: Chronic Assessment and Plan: Appears chronic since November 2018. No active signs of bleeding. Iron studies reveal iron deficiency anemia B12 and folate levels are WNL Fecal occult blood test negative Continue home iron supplementation. DVT Prophylaxis: Heparin SQ. - Time Spent with Patient Total time spent is greater than 50% in coordination of care (as documented) at patient's floor/unit and/or counseling patient: Internal Medicine: Result - Labs CBC & Chem 7: 12/17/18 04:59 12/17/18 04:59 Labs: Short CBC 12/17/18 Range/Units 04:59 WBC 5.6 (4.3-11.1) K/mcL Hgb 8.5 L (11.5-15.4) g/dL Hct 26.7 L (35.3-44.9) % Plt Count 146 (140-400) K/mcL Neutrophils # 2.7 (1.6-8.9) K/mcL BMP 12/17/18 04:59 Sodium 141 Potassium 3.9 Chloride 111 H Carbon Dioxide 23 BUN 16 Creatinine 1.07 Glucose 98 Calcium 8.5 L - ABG Interpretation ABG results: PT/INR, D-dimer PT 12.0 Seconds (9.4-12.1) 12/14/18 23:37 <Drabina-Rodrigo,Violeta M - Last Filed: 12/17/18 12:54> (1) Diabetes type 2, controlled Qualifiers: Diabetes mellitus nursing home insulin use: with 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 Diabetes mellitus complication status: with skin complications Diabetes mellitus complication detail: with foot ulcer Qualified Code(s): E11.621 - Type 2 diabetes mellitus with foot ulcer; L97.509 - Non-pressure chronic ulcer of other part of unspecified foot with unspecified severity; 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 (2) Left serous otitis media Qualifiers: Chronicity: acute Recurrence: non-recurrent Qualified Code(s): H65.02 - Acute serous otitis media, left ear (3) Diabetic foot ulcer Qualifiers: Diabetic foot ulcer location: midfoot Diabetes mellitus type: type 1 Laterality: right Non-pressure ulcer stage: unspecified non-pressure ulcer stage Qualified Code(s): E10.621 - Type 1 diabetes mellitus with foot ulcer; L97.419 - Non-pressure chronic ulcer of right heel and midfoot with unspecified severity (4) ICAO (internal carotid artery occlusion) Qualifiers: Laterality: right Qualified Code(s): I65.21 - Occlusion and stenosis of right carotid artery (7) Hypothyroidism Qualifiers: Hypothyroidism type: unspecified Qualified Code(s): E03.9 - Hypothyroidism, u nspecified (8) Anemia Qualifiers: Anemia type: iron deficiency Iron deficiency anemia type: unspecified iron deficiency Qualified Code(s): D50.9 - Iron deficiency anemia, unspecified <Kevin Brennan - Last Filed: 12/17/18 17:23> (3) Community acquired pneumonia Qualifiers: Laterality: unspecified laterality Qualified Code(s): J18.9 - Pneumonia, unspecified organism (4) Diabetes type 2, controlled Qualifiers: Diabetes mellitus nursing home insulin use: with 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 Diabetes mellitus complication status: with skin complications Diabetes mellitus complication detail: with foot ulcer Qualified Code(s): E11.621 - Type 2 diabetes mellitus with foot ulcer; L97.509 - Non-pressure chronic ulcer of other part of unspecified foot with unspecified severity; Z79.4 - [facility] (current) use of insulin (5) Left serous otitis media Qualifiers: Chronicity: acute Recurrence: non-recurrent Qualified Code(s): H65.02 - Acute serous otitis media, left ear (6) Diabetic foot ulcer Qualifiers: Diabetic foot ulcer location: midfoot Diabetes mellitus type: type 1 Laterality: right Non-pressure ulcer stage: unspecified non-pressure ulcer stage Qualified Code(s): E10.621 - Type 1 diabetes mellitus with foot ulcer; L97.419 - Non-pressure chronic ulcer of right heel and midfoot with unspecified severity (7) ICAO (internal carotid artery occlusion) Qualifiers: Laterality: right Qualified Code(s): I65.21 - Occlusion and stenosis of right carotid artery (9) Hypothyroidism Qualifiers: Hypothyroidism type: unspecified Qualified Code(s): E03.9 - Hypothyroidism, unspecified (10) Anemia Qualifiers: Anemia type: iron deficiency Iron deficiency anemia type: unspecified iron deficiency Qualified Code(s): D50.9 - Iron deficiency anemia, unspecified
[2018-12-17] MEDS: Multivit/Ca/Min/Fe/FA 1 TAB TABLET PO SCH (08:21)
[2018-12-17] MEDS: Nystatin Cream 15 GM TUBE TP SCH ×3 (08:22→21:56)
[2018-12-17] MEDS: Levofloxacin 750 MG/150 ML 750 MG/150 ML BAG IVPB SCH (08:22)
[2018-12-17] MEDS: Cyclosporine [Restasis] OP SCH ×2 (08:22→21:56)
[2018-12-17] MEDS: Fluticasone Propionate Nasal 50 MCG/SPRAY BOTTLE NS SCH (08:22)
[2018-12-17] MEDS: Insulin LISPRO 300 UNITS/3 ML VIAL SQ SCH ×4 (08:23→21:56)
[2018-12-17] MEDS: traMADol 50 MG TABLET PO PRN (08:35)
[2018-12-17] MEDS: Lisinopril 20 MG TABLET PO SCH (11:57)
--- NOTE | 2018-12-17 13:23 | Podiatry Progress Note ---
Date of Encounter: 12/17/18 Time of Encounter: 12:00 Objective - Vital Signs Vital Signs: Vital Signs Temp Pulse Resp BP Pulse Ox 12/17/18 11:21 98.4 F 74 20 199/100 97 12/17/18 07:56 98.2 F 71 20 173/90 95 12/17/18 03:29 98.5 F 71 14 174/98 94 12/17/18 00:05 98.4 F 70 16 189/104 96 12/16/18 19:48 98.6 F 71 163/91 98 12/16/18 14:58 98.5 F 79 18 147/92 99 Intake and Output 12/16/18 12/17/18 12/17/18 23:59 07:59 15:59 Intake Total 890 / 890 0 / 0 Output Total 450 / 450 650 / 650 1000 / 1000 Balance 440 / 440 -650 / -650 -1000 / -1000 Intake: IV Fluids 250 / 250 Vancocin 1,000 MG In 0.9 % 250 / 250 Sodium Chloride 250 ML @ 166. 667 mls/hr IVPB Q12H [facility] Rx#: [id number] Oral 640 / 640 0 / 0 Output: Urine 450 / 450 650 / 650 1000 / 1000 Other: Meal Dinner Lunch Percent of Meal Consumed 50% 0% Stool Size Small Stool Consistency liquid Stool Color Brown # Bowel Movement Diapers 1 Weight 98.3 kg Blood Glucose* 182 120 Patient Weight 12/17/18 23:59 Weight 98.3 kg - Lab Result Diagrams: 12/17/18 04:59 12/17/18 04:59 Labs: Abnormal lab results RBC 2.87 M/mcL (3.82-4.97) L 12/17/18 04:59 Hgb 8.5 g/dL (11.5-15.4) L 12/17/18 04:59 Hct 26.7 % (35.3-44.9) L 12/17/18 04:59 RDW 14.7 % (11.5-14.5) H 12/17/18 04:59 APTT 36.1 Seconds (26.0-36.0) H 12/14/18 23:37 Chloride 111 mEq/L (98-107) H 12/17/18 04:59 Est GFR (Non-Af Amer) 51 (> 60) L 12/17/18 04:59 POC Glucose 142 mg/dL (70-99) H 12/16/18 15:02 Hemoglobin A1c 7.7 % (-5.6) H 12/15/18 07:17 Calcium 8.5 mg/dL (8.6-10.3) L 12/17/18 04:59 Iron 26 mcg/dL (50-170) L 12/15/18 07:50 % Saturation 8 % (15-50) L 12/15/18 07:50 ALT 69 Units/L (7-52) H 12/16/18 04:01 Serum Total Protein 5.7 g/dL (6.4-8.9) L 12/16/18 04:01 Albumin 3.0 g/dL (3.5-5.7) L 12/16/18 04:01 TSH 6.667 mcIU/mL (0.340-5.600) H 12/15/18 16:38 Vancomycin Trough 13 mcg/mL (5-10) H 12/17/18 04:59 Microbiology, Last 48 Hours 12/16/18 13:50 Wound Culture - Preliminary Right Foot No growth. 12/16/18 20:57 Wound Culture - Preliminary Left Ear Culture is incubating. 12/16/18 05:56 Legionella Antigen - Final Urine,Clean Catch Streptococcus pneumoniae Antigen (M - Final 12/15/18 16:38 Blood Culture - Preliminary Peripheral Venipuncture Culture is incubating and being continuously monitored for growth. Final report to follow. 12/15/18 16:38 Blood Culture - Preliminary Peripheral Venipuncture Culture is incubating and being continuously monitored for growth. Final report to follow. Consult Discharge Plan - Plan Referrals: NONE,PCP [Primary Care Provider] -
--- NOTE | 2018-12-17 16:59 | Podiatry Consult Note ---
Date of Encounter: 12/17/18 Time of Encounter: 12:00 Assessment and Plan (1) Diabetic foot ulcer Current visit: Yes Status: Chronic ASSESSMENT: BARAHONA STAGE II ulceration dorsal aspect of right foot PLAN: Wound does not appear infected at this time, will obtain imaging to rule out osteomyelitis No erythema, mild edema to dorsal aspect of foot which patient reports has improved in last few days No fluctuance noted on exam No warmth noted Pulses palpable on exam Wound has fibrous base covering 100% of wound bed with minimal granulation tissue visible Minimal depth At this time please wash with mild soap and water daily Apply maxsorb AG, and dry bulk dressing Resume collagen as ordered at home Continue to follow in [facility] with Hugh as scheduled Call with any fevers, chills, increase in erythema edema or drainage or noted streaking to foot Verbalized understanding. Qualifiers: Diabetic foot ulcer location: midfoot Diabetes mellitus type: type 1 Laterality: right Non-pressure ulcer stage: unspecified non-pressure ulcer stage Qualified Code(s): E10.621 - Type 1 diabetes mellitus with foot ulcer; L97.419 - Non-pressure chronic ulcer of right heel and midfoot with unspecified severity History of Present Illness HPI: Ms. Westbrook is a 68 year old female with a PMH of uncontrolled DM and hx of 5 CVA's without residual complication who presented to the ED with symptoms of CVA. She was evaluated and noted to internal carotid occlusion. Patient has been consulted to podiatry regarding a right foot ulceration, dorsal aspect which is concerning for infection. Patient is followed by at the [facility] where she has been undergoing therapy for a barahona stage II ulceration and being treated with collagen powder and bulk dressing with compression. Patient reports pain as a 9.75/10 to the foot. Reports pain is constant. Reports ulceration has been chronic x2 months. States her glucose is not controlled and she does not work to obtain control or monitor diet. Admit WBC 8.9 and temp 98.6. Patient was last seen in [facility] on 12/10. ESR CRP or imagining was obtained. Wound cultures were obtained from wound and pending. Past Med Surg Social Fam HX - Past Medical History Medical history: CHF, COPD, coronary artery disease, CVA, diabetes, hypertension, peripheral artery disease Additional medical history: ishemic stroke, DJD Psychiatric history: anxiety, depression - Past Surgical History Surgical History: angioplasty/stent, orthopedic, other - Social History Smoking Status: Never smoker Smokeless Tobacco Status: No Alcohol use: none Drug use: none - Family History Mother Living Status: Hx Family Endocrine Disorder: Yes (diabetes) Medications and Allergies Albuterol Sulfate [Ventolin Hfa] 1 puff IH Q6H PRN 12/15/18 [History] Atorvastatin [Lipitor] 80 mg PO HS 12/15/18 [History] Cyclosporine [Restasis] 1 each OP BID 12/15/18 [History] Esomeprazole Magnesium [Nexium] 40 mg PO BID 12/15/18 [History] Famotidine [Pepcid] 40 mg PO DAILY 12/15/18 [History] Ferrous Sulfate [Iron] 325 mg PO BID 12/15/18 [History] Fluticasone Propionate [Flovent Diskus] 1 spray IH DAILY 12/15/18 [History] Furosemide [Lasix] 40 mg PO DAILY 12/15/18 [History] Insulin ASPART [Novolog Flexpen] 0 unit SQ TIDWM PRN 12/15/18 [History] Levothyroxine Sodium [Levoxyl] 75 mcg PO DAILY 12/15/18 [History] Levothyroxine Sodium [Synthroid] 200 mcg PO DAILY 12/15/18 [History] Lisinopril [Zestril] 40 mg PO DAILY 12/15/18 [History] Multivit-Min/Iron/Folic Acid/K [Adults Multivitamin Tablet] 1 tab PO DAILY 12/15/18 [History] Mupirocin [Bactroban Oint] 1 appl TP Q48H 12/15/18 [History] Pregabalin [Lyrica] 75 mg PO HS 12/15/18 [History] Tizanidine HCl [Zanaflex] 4 mg PO BID PRN 12/15/18 [History] Calcium Carbonate [Tums] 500 mg PO DAILY PRN 12/17/18 [History] Dextran 70/Hypromellose [Genteal Tears 0.1%-0.3% Drop] 1 drop BOTH EYES HS 12/17/18 [History] Docusate [Colace] 100 mg PO BID 12/17/18 [History] Loratadine [Claritin] 10 mg PO DAILY 12/17/18 [History] OxyCODONE/APAP 7.5/325 [Percocet 7.5/325 MG] 1 tab PO QID PRN 12/17/18 [History] Sennosides [Senna] 8.6 mg PO DAILY 12/17/18 [History] Spironolactone 50 mg PO DAILY 12/17/18 [History] Allergy/AdvReac Type Severity Reaction Status Date / Time aspirin Allergy Hives Verified 12/17/18 09:45 Penicillins [PCN] Allergy Unresponsiv Verified 12/17/18 09:45 e Sulfa (Sulfonamide Allergy Hives Verified 12/17/18 09:45 Antibiotics) All Systems Reviewed: The remainder of the systems were reviewed and are negative Physical Exam - Constitutional Vitals: Temp Pulse Resp BP Pulse Ox 98.2 F 67 18 163/84 99 12/17/18 15:46 12/17/18 15:46 12/17/18 15:46 12/17/18 15:46 12/17/18 15:46 Results - Labs Result Diagrams: 12/17/18 04:59 12/17/18 04:59 Labs: Abnormal lab results RBC 2.87 M/mcL (3.82-4.97) L 12/17/18 04:59 Hgb 8.5 g/dL (11.5-15.4) L 12/17/18 04:59 Hct 26.7 % (35.3-44.9) L 12/17/18 04:59 RDW 14.7 % (11.5-14.5) H 12/17/18 04:59 APTT 36.1 Seconds (26.0-36.0) H 12/14/18 23:37 Chloride 111 mEq/L (98-107) H 12/17/18 04:59 Est GFR (Non-Af Amer) 51 (> 60) L 12/17/18 04:59 POC Glucose 142 mg/dL (70-99) H 12/16/18 15:02 Hemoglobin A1c 7.7 % (-5.6) H 12/15/18 07:17 Calcium 8.5 mg/dL (8.6-10.3) L 12/17/18 04:59 Iron 26 mcg/dL (50-170) L 12/15/18 07:50 % Saturation 8 % (15-50) L 12/15/18 07:50 ALT 69 Units/L (7-52) H 12/16/18 04:01 Serum Total Protein 5.7 g/dL (6.4-8.9) L 12/16/18 04:01 Albumin 3.0 g/dL (3.5-5.7) L 12/16/18 04:01 TSH 6.667 mcIU/mL (0.340-5.600) H 12/15/18 16:38 Vancomycin Trough 13 mcg/mL (5-10) H 12/17/18 04:59 H & H 12/17/18 Range/Units 04:59 Hgb 8.5 L (11.5-15.4) g/dL Hct 26.7 L (35.3-44.9) % All other labs normal. Consult Discharge Plan - Plan Referrals: NONE,PCP [Primary Care Provider] -
--- NOTE | 2018-12-17 20:16 | Electrocardiograph Report ---
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
--- NOTE | 2018-12-17 20:21 | Electrocardiograph Report ---
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
[2018-12-18] MEDS: Famotidine 20 MG TABLET PO SCH (05:50)
[2018-12-18] MEDS: *HR* Heparin 5,000 UNIT/ML VIAL SQ SCH ×3 (05:51→23:07)
[2018-12-18 07:42] LABS: Basophils % 0.4 %; Eosinophils # 0.1 K/mcL (0.0-0.6); Eosinophils % 1.6 %; Hematocrit 26.7 % (35.3-44.9); Hemoglobin 8.5 g/dL (11.5-15.4); Immature Granulocytes % 0.2 % (0-4); Lymphocytes % 41.2 %; Mean Corpuscular HGB Conc 31.8 g/dL (31.6-35.5); Mean Corpuscular Hemoglobin 29.4 pg (28.0-33.3); Mean Corpuscular Volume 92.4 fL (83.0-100.0); Mean Platelet Volume 10.6 fL (9.4-12.4); Monocytes # 0.3 K/mcL (0.0-1.3); Monocytes % 6.5 %; Neutrophils # 2.5 K/mcL (1.6-8.9); Platelet Count 176 K/mcL (140-400); Red Blood Count 2.89 M/mcL (3.82-4.97); Red Cell Distribution Width 14.5 % (11.5-14.5); Segmented Neutrophils % 50.1 %
[2018-12-18 07:57] LABS: BUN/Creatinine Ratio 16 (6-26); Blood Urea Nitrogen 17 mg/dL (8-23); Calcium 8.4 mg/dL (8.6-10.3); Carbon Dioxide 27 mEq/L (23-29); Chloride 110 mEq/L (98-107); Glucose 104 mg/dL (70-105); Osmolality,Calculated 298 (280-300); Potassium 3.9 mEq/L (3.5-5.1); Sodium 143 mEq/L (136-145); eGFR For Non-African Americans 51 (> 60)
[2018-12-18] MEDS: Multivit/Ca/Min/Fe/FA 1 TAB TABLET PO SCH (08:01)
[2018-12-18] MEDS: Lisinopril 20 MG TABLET PO SCH (08:01)
[2018-12-18] MEDS: traMADol 50 MG TABLET PO PRN (08:01)
[2018-12-18] MEDS: Furosemide 40 MG TABLET PO SCH (08:01)
[2018-12-18] MEDS: Nystatin Cream 15 GM TUBE TP SCH ×3 (08:02→23:07)
[2018-12-18] MEDS: Fluticasone Propionate Nasal 50 MCG/SPRAY BOTTLE NS SCH (08:02)
[2018-12-18] MEDS: Levofloxacin 750 MG/150 ML 750 MG/150 ML BAG IVPB SCH (08:02)
[2018-12-18] MEDS: Cyclosporine [Restasis] OP SCH (08:02)
[2018-12-18] MEDS: Insulin LISPRO 300 UNITS/3 ML VIAL SQ SCH ×4 (08:02→22:39)
--- NOTE | 2018-12-18 08:56 | Internal Med Progress Note ---
<Kevin Brennan - Last Filed: 12/18/18 17:13> Hospitalist Progress Note - Encounter Date of Encounter: 12/18/18 Time of Encounter: 09:45 - Subjective Interval History: Pt seen and examined at bedside. No new or acute complaints. States she continues to have a headache originating at the forehead with no radiation of the pain. No fever, chills, chest pain, shortness of breath, abdominal pain, nausea, vomiting, or dizziness. - Exam Vitals: Temp Pulse Resp BP Pulse Ox 98.2 F 67 11 180/91 97 12/18/18 07:35 12/18/18 07:35 12/18/18 07:35 12/18/18 07:35 12/18/18 07:35 Exam: General: cooperative, A&O X 3, pleasant, no acute distress, answers questions appropriately Head:atraumatic, normal inspection Eyes: PERRL, EOMI, sclera anicteric, conjunctiva pink Neck: full ROM, supple Lungs: CTAB. non-labored breathing. no rales, rhonchi, or wheezes Heart: distant heart sounds, RRR, +S1, +S2. No murmurs, clicks, or rubs appreciated GI: abdomen soft, non-tender, non-distended, normal bowel sounds Extremities: warm, radial pulses palpable and symmetrical. No calf tenderness, pedal edema, tenderness. Right dorsal foot ulcer, dressing in place. Contusion to the mid-lateral UE. Neuro: alert, oriented X3, strengths equal and symetr throughout, right sided facial droop (subtle), speech deficit with mild slurred speech, right upper extremity intention tremor, chronic per daughter Skin: dry, warm, right dorsal foot ulcer, dressing in place - Assessment and Plan (1) HTN (hypertension) Current Visit: Yes Status: Chronic Assessment and Plan: Blood pressure is elevated Continue Coreg 12.5mg Continue Lisinopril 40mg Restarted Lasix this AM Restarted home Aldactone 50mg Labetalol ordered prn BP > 160/90 Remained elevated with SBP ~170s Added Hydralazine prn BP >160/90 Continue monitoring. (2) Left serous otitis media Current Visit: Yes Status: Acute Assessment and Plan: Left TM with serous effusion Wound culture negative De-escalated abx to Levaquin (Day 4) Continue pain control as needed Monitor clinically and outpatient follow up with PCP. (3) Diabetic foot ulcer Current Visit: Yes Status: Chronic Assessment and Plan: Chronic foot wound appears to be infected and may need to be debrided. Wound culture from 11/26/18 revealed Enterobacter cloacae complex, resistant to Augmentin and Cefazolin. Wound culture negative Wound care per podiatry Low concern for infection De-escalated abx as above to Levaquin (Day 4) (4) Diabetes type 2, controlled Current Visit: Yes Status: Chronic Assessment and Plan: Daughter reports brittle diabetes and abrupt hyoglycemia when she takes insulin. Hemoglobin A1c 7.7 Monitor glucose closely, continue low dose SSI ACHS. (5) ICAO (internal carotid artery occlusion) Current Visit: Yes Status: Acute Assessment and Plan: CTA neck revealed complete occlusion of the cervical right internal carotid artery at its origin, which becomes reconstituted by collateral flow at the [place] of [place]. Mild atherosclerotic disease of the left internal carotid artery, without evidence of flow-limiting stenosis by NASCET criteria. [facility] neurology did not recommend intervention at this time. Continue risk factor modification. Recommend outpatient follow-up with vascular surgery. (6) Pulmonary nodules Current Visit: Yes Status: Acute Assessment and Plan: CTA neck revealed multiple scattered nonspecific biapical pulmonary nodules, the largest measures 6 mm within the right upper lobe. Chest CT revealed 9 mm noncalcified nodule within the left lower lobe, consider CT at 3 months, PET/CT, or tissue sampling (7) Hypothyroidism Current Visit: Yes Status: Chronic Assessment and Plan: TSH level 6.667 Free T4 1.38 Continue Synthroid. Recommend f/u with PCP for re-evaluation in 6 weeks (8) Anemia Current Visit: Yes Status: Chronic Assessment and Plan: Appears chronic since November 2018. No active signs of bleeding. Iron studies reveal iron deficiency anemia B12 and folate levels are WNL Fecal occult blood test negative Continue home iron supplementation. (9) Facial paresthesia Current Visit: Yes Status: Chronic Assessment and Plan: CT head revealed diffuse atrophic changes with findings suggesting chronic microvascular ischemia and an old right frontal lobe infarct. Head CTA revealed no evidence of intracerebral arterial stenosis, filling defect, or aneurysm. Patent posterior circulation, without evidence of stenosis, filling defect, or aneurysm. Chronic right frontal infarct. [facility] recommended TPA. However, patient and family refused and preferred to pursue a workup here at [place]. Furthermore, most of her symptoms had resolved at that point. Dysplasia is slowly improving. 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 MRI brain revealed no acute infarct or acute intracranial process identified. Remote watershed infarct within the right cerebral hemisphere. Remote lacunar infarcts within the right basal ganglia and thalami. ECHO revealed LVEF 55-60%, moderate concentric left ventricular hypertrophy, moderate left ventricular diastolic dysfunction, the non coronary cusp of the aortic valve and the tip of the anterior mitral valve leaflet are thickened and echogenic, probably with calcified material. No evidence of pulmonary hypertension. Continue statin. Continue Plavix. Patient was not given Aspirin due to previous Aspirin allergy. Speech therapy recommended a clinically altered diabetic diet and assistance with all meals. PT/OT consulted Continue monitoring per stroke protocol. Neurology following, appreciate their recommendations. DVT Prophylaxis: SQ Heparin - Time Spent with Patient Total time spent is greater than 50% in coordination of care (as documented) at patient's floor/unit and/or counseling patient: Internal Medicine: Result - Labs CBC & Chem 7: 12/18/18 07:04 12/18/18 07:04 Labs: Short CBC 12/18/18 Range/Units 07:04 WBC 4.9 (4.3-11.1) K/mcL Hgb 8.5 L (11.5-15.4) g/dL Hct 26.7 L (35.3-44.9) % Plt Count 176 (140-400) K/mcL Neutrophils # 2.5 (1.6-8.9) K/mcL BMP 12/18/18 07:04 Sodium 143 Potassium 3.9 Chloride 110 H Carbon Dioxide 27 BUN 17 Creatinine 1.07 Glucose 104 Calcium 8.4 L - ABG Interpretation ABG results: PT/INR, D-dimer PT 12.0 Seconds (9.4-12.1) 12/14/18 23:37 - Impressions Impressions Foot X-Ray 12/17/18 13:23 IMPRESSION: No acute finding in the right foot. Site of ulceration not clearly identified, and there is no radiographic evidence of osteomyelitis. D/ / Gomez Pruett MD / Gomez Pruett MD Interpreting Provider: Gomez Pruett MD Consult Discharge Plan - Plan Instructions: Hypothyroidism (DC), Diabetic Foot Care (DC), Diabetes Mellitus Type 2 in Adults (DC), Chronic Hypertension (DC), Anemia (GEN) Referrals: NONE,PCP [Primary Care Provider] - <Logan Dyer - Last Filed: 12/18/18 18:57> Hospitalist Progress Note - Encounter Date of Encounter: 12/18/18 - Exam Vitals: Temp Pulse Resp BP Pulse Ox 98.2 F 66 11 153/74 97 12/18/18 07:35 12/18/18 12:31 12/18/18 07:35 12/18/18 12:31 12/18/18 12:31 - Assessment and Plan (1) Diabetes type 2, controlled Current Visit: Yes Status: Chronic (2) Left serous otitis media Current Visit: Yes Status: Acute (3) Diabetic foot ulcer Current Visit: Yes Status: Chronic (4) ICAO (internal carotid artery occlusion) Current Visit: Yes Status: Acute (5) Pulmonary nodules Current Visit: Yes Status: Acute (6) HTN (hypertension) Current Visit: Yes Status: Chronic (7) Hypothyroidism Current Visit: Yes Status: Chronic (8) Anemia Current Visit: Yes Status: Chronic (9) Facial paresthesia Current Visit: Yes Status: Chronic - Time Spent with Patient Total time spent is greater than 50% in coordination of care (as documented) at patient's floor/unit and/or counseling patient: Internal Medicine: Result - Labs CBC & Chem 7: 12/18/18 07:04 12/18/18 07:04 Labs: Short CBC 12/18/18 Range/Units 07:04 WBC 4.9 (4.3-11.1) K/mcL Hgb 8.5 L (11.5-15.4) g/dL Hct 26.7 L (35.3-44.9) % Plt Count 176 (140-400) K/mcL Neutrophils # 2.5 (1.6-8.9) K/mcL BMP 12/18/18 07:04 Sodium 143 Potassium 3.9 Chloride 110 H Carbon Dioxide 27 BUN 17 Creatinine 1.07 Glucose 104 Calcium 8.4 L - ABG Interpretation ABG results: PT/INR, D-dimer PT 12.0 Seconds (9.4-12.1) 12/14/18 23:37 - Attending Attestation I examined this patient and my medical decision-making was reviewed with the Resident Physician on 12/18/18. I agree with the documented findings, disposition and treatment plan as described except to the extent set forth below. Ms Westbrook is currently admitted for uncontrolled HTN and chronic diabetic foot ulcer. She remains moderate to high risk due to potential for worsening clinical status. Ms Westbrook is feeling OK. No fever or chills. BP has been up again. No CP. No new neuro symptoms. No GI issues. Exam Alert Comfortable Mucus membranes dry Neck supple Heart reg and not tachy No wheeze Abd soft and nontender Dressing intact I/P 1. Chronic diabetic foot ulcer - appreciate podiatry input 2. L serous OM - on abx 3. HTN - uncontrolled. Meds adjusted. 4. Prior CVA 5. Hypothyroid Further diagnoses and plan as above. <Kevin Brennan - Last Filed: 12/18/18 17:13> (1) HTN (hypertension) Qualifiers: Hypertension type: essential hypertension Qualified Code(s): I10 - Essential (primary) hypertension (2) Left serous otitis media Qualifiers: Chronicity: acute Recurrence: non-recurrent Qualified Code(s): H65.02 - Acute serous otitis media, left ear (3) Diabetic foot ulcer Qualifiers: Diabetic foot ulcer location: midfoot Diabetes mellitus type: type 1 Laterality: right Non-pressure ulcer stage: unspecified non-pressure ulcer sta ge Qualified Code(s): E10.621 - Type 1 diabetes mellitus with foot ulcer; L97.419 - Non-pressure chronic ulcer of right heel and midfoot with unspecified severity (4) Diabetes type 2, controlled Qualifiers: Diabetes mellitus alf insulin use: with svp group director use Diabetes mellitus complication status: with skin complications Diabetes mellitus complication detail: with foot ulcer Qualified Code(s): E11.621 - Type 2 diabetes mellitus with foot ulcer; L97.509 - Non-pressure chronic ulcer of other part of unspecified foot with unspecified severity; Z79.4 - FPC (current) use of insulin (5) ICAO (internal carotid artery occlusion) Qualifiers: Laterality: right Qualified Code(s): I65.21 - Occlusion and stenosis of right carotid artery (7) Hypothyroidism Qualifiers: Hypothyroidism type: unspecified Qualified Code(s): E03.9 - Hypothyroidism, unspecified (8) Anemia Qualifiers: Anemia type: iron deficiency Iron deficiency anemia type: unspecified iron deficiency Qualified Code(s): D50.9 - Iron deficiency anemia, unspecified <Logan Dyer - Last Filed: 12/18/18 18:57> (1) Diabetes type 2, controlled Qualifiers: Diabetes mellitus svp group director insulin use: with svp group director use Diabetes mellitus complication status: with skin complications Diabetes mellitus complication d etail: with foot ulcer Qualified Code(s): E11.621 - Type 2 diabetes mellitus with foot ulcer; L97.509 - Non-pressure chronic ulcer of other part of unspecified foot with unspecified severity; Z79.4 - keno terminal operator (current) use of insulin (2) Left serous otitis media Qualifiers: Chronicity: acute Recurrence: non-recurrent Qualified Code(s): H65.02 - Acute serous otitis media, left ear (3) Diabetic foot ulcer Qualifiers: Diabetic foot ulcer location: midfoot Diabetes mellitus type: type 1 Laterality: right Non-pressure ulcer stage: unspecified non-pressure ulcer stage Qualified Code(s): E10.621 - Type 1 diabetes mellitus with foot ulcer; L97.419 - Non-pressure chronic ulcer of right heel and midfoot with unspecified severity (4) ICAO (internal carotid artery occlusion) Qualifiers: Laterality: right Qualified Code(s): I65.21 - Occlusion and stenosis of right carotid artery (6) HTN (hypertension) Qualifiers: Hypertension type: essential hypertension Qualified Code(s): I10 - Essential (primary) hypertension (7) Hypothyroidism Qualifiers: Hypothyroidism type: acquired Qualified Code(s): E03.9 - Hypothyroidism, unspecified (8) Anemia Qualifiers: Anemia type: iron deficiency Iron deficiency anemia type: unspecified iron deficiency Qualified Code(s): D50.9 - Iron deficiency anemia, unspecified
[2018-12-18] MEDS: *HR* Labetalol 20 MG/4 ML SYRINGE IVP PRN ×3 (09:41→23:22)
[2018-12-18] MEDS ORDERED: *HR* OxyCODONE/APAP 7.5/325 TABLET PO PRN (11:25)
[2018-12-18] MEDS: Sennosides 8.6 MG TABLET PO SCH (12:49)
[2018-12-19 05:00] LABS: Basophils % 0.4 %; Eosinophils # 0.1 K/mcL (0.0-0.6); Eosinophils % 1.8 %; Hematocrit 26.2 % (35.3-44.9); Hemoglobin 8.3 g/dL (11.5-15.4); Immature Granulocytes % 0.2 % (0-4); Lymphocytes % 40.6 %; Mean Corpuscular HGB Conc 31.7 g/dL (31.6-35.5); Mean Corpuscular Volume 91.6 fL (83.0-100.0); Mean Platelet Volume 10.9 fL (9.4-12.4); Monocytes # 0.4 K/mcL (0.0-1.3); Monocytes % 7.4 %; Neutrophils # 2.5 K/mcL (1.6-8.9); Platelet Count 186 K/mcL (140-400); Red Blood Count 2.86 M/mcL (3.82-4.97); Red Cell Distribution Width 14.6 % (11.5-14.5); Segmented Neutrophils % 49.6 %
[2018-12-19 05:20] LABS: Calcium 8.4 mg/dL (8.6-10.3); Potassium 3.8 mEq/L (3.5-5.1)
[2018-12-19] MEDS: *HR* Heparin 5,000 UNIT/ML VIAL SQ SCH ×2 (06:15→15:24)
[2018-12-19] MEDS: Famotidine 20 MG TABLET PO SCH (06:15)
[2018-12-19] MEDS: Insulin LISPRO 300 UNITS/3 ML VIAL SQ SCH ×3 (08:15→17:40)
[2018-12-19] MEDS: Sennosides 8.6 MG TABLET PO SCH (08:23)
[2018-12-19] MEDS: Furosemide 40 MG TABLET PO SCH (08:23)
[2018-12-19] MEDS: Lisinopril 20 MG TABLET PO SCH (08:23)
[2018-12-19] MEDS: Fluticasone Propionate Nasal 50 MCG/SPRAY BOTTLE NS SCH (08:24)
[2018-12-19] MEDS: Multivit/Ca/Min/Fe/FA 1 TAB TABLET PO SCH (08:25)
[2018-12-19] MEDS: Nystatin Cream 15 GM TUBE TP SCH ×2 (08:25→15:24)
[2018-12-19] MEDS: *HR* OxyCODONE/APAP 7.5/325 TABLET PO PRN ×2 (08:35→18:15)
[2018-12-19] MEDS ORDERED: Loratadine 10 MG TABLET PO SCH (09:00)
[2018-12-19] MEDS ORDERED: levoFLOXacin 750 MG TABLET PO SCH (09:00)
[2018-12-19] MEDS ORDERED: Ondansetron 4 MG/2 ML VIAL IVP PRN (11:24)
--- NOTE | 2018-12-19 13:49 | Discharge Summary ---
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 Diabetes mellitus complication status: with skin complications Diabetes mellitus complication detail: with foot ulcer Qualified Code(s): E11.621 - Type 2 diabetes mellitus with foot ulcer; L97.509 - Non-pressure chronic ulcer of other part of unspecified foot with unspecified severity; Z79.4 - FDC (current) use of insulin (2) Left serous otitis media Status: Resolved Qualifiers: Chronicity: acute Recurrence: non-recurrent Qualified Code(s): H65.02 - Acute serous otitis media, left ear (3) Diabetic foot ulcer Priority: Primary Status: Chronic Qualifiers: Diabetic foot ulcer location: midfoot Diabetes mellitus type: type 1 Laterality: right Non-pressure ulcer stage: unspecified non-pressure ulcer stage Qualified Code(s): E10.621 - Type 1 diabetes mellitus with foot ulcer; L97.419 - Non-pressure chronic ulcer of right heel and midfoot with unspecified severity (4) ICAO (internal carotid artery occlusion) Status: Chronic Qualifiers: Laterality: right Qualified Code(s): I65.21 - Occlusion and stenosis of right carotid artery (5) Pulmonary nodules Status: Chronic (6) HTN (hypertension) Status: Chronic Qualifiers: Hypertension type: essential hypertension Qualified Code(s): I10 - Essential (primary) hypertension (7) Hypothyroidism Status: Chronic Qualifiers: Hypothyroidism type: acquired Qualified Code(s): E03.9 - Hypothyroidism, unspecified (8) Anemia Status: Chronic Qualifiers: Anemia type: iron deficiency Iron deficiency anemia type: unspecified iron deficiency Qualified Code(s): D50.9 - Iron deficiency anemia, unspecified (9) Facial paresthesia Status: Chronic Hospital course: Ms. Westbrook is a 68 year old female - Time Spent with Patient Total time spent providing and/or coordinating discharge services: 36min - Discharge Medications Prescriptions: Carvedilol [Coreg] 12.5 mg PO BIDWM 30 Days #60 tablet Clopidogrel [Plavix] 75 mg PO DAILY 30 Days #30 tablet Nystatin Cream [Mycostatin Cream] 1 appl TP TID 5 Days #1 tube Home Medications: Albuterol Sulfate [Ventolin Hfa] 1 puff IH Q6H PRN 12/15/18 [History] Atorvastatin [Lipitor] 80 mg PO HS 12/15/18 [History] Cyclosporine [Restasis] 1 each OP BID 12/15/18 [History] Esomeprazole Magnesium [Nexium] 40 mg PO BID 12/15/18 [History] Famotidine [Pepcid] 40 mg PO DAILY 12/15/18 [History] Ferrous Sulfate [Iron] 325 mg PO BID 12/15/18 [History] Fluticasone Propionate [Flovent Diskus] 1 spray IH DAILY 12/15/18 [History] Furosemide [Lasix] 40 mg PO DAILY 12/15/18 [History] Insulin ASPART [Novolog Flexpen] 0 unit SQ TIDWM PRN 12/15/18 [History] Levothyroxine Sodium [Levoxyl] 75 mcg PO DAILY 12/15/18 [History] Levothyroxine Sodium [Synthroid] 200 mcg PO DAILY 12/15/18 [History] Lisinopril [Zestril] 40 mg PO DAILY 12/15/18 [History] Multivit-Min/Iron/Folic Acid/K [Adults Multivitamin Tablet] 1 tab PO DAILY 12/15/18 [History] Mupirocin [Bactroban Oint] 1 appl TP Q48H 12/15/18 [History] Pregabalin [Lyrica] 75 mg PO HS 12/15/18 [History] Tizanidine HCl [Zanaflex] 4 mg PO BID PRN 12/15/18 [History] Calcium Carbonate [Tums] 500 mg PO DAILY PRN 12/17/18 [History] Dextran 70/Hypromellose [Genteal Tears 0.1%-0.3% Drop] 1 drop BOTH EYES HS 12/17/18 [History] Docusate [Colace] 100 mg PO BID 12/17/18 [History] Loratadine [Claritin] 10 mg PO DAILY 12/17/18 [History] OxyCODONE/APAP 7.5/325 [Percocet 7.5/325 MG] 1 tab PO QID PRN 12/17/18 [History] Sennosides [Senna] 8.6 mg PO DAILY 12/17/18 [History] Spironolactone 50 mg PO DAILY 12/17/18 [History] Carvedilol [Coreg] 12.5 mg PO BIDWM 30 Days #60 tablet 12/19/18 [Rx] Clopidogrel [Plavix] 75 mg PO DAILY 30 Days #30 tablet 12/19/18 [Rx] Nystatin Cream [Mycostatin Cream] 1 appl TP TID 5 Days #1 tube 12/19/18 [Rx] Allergies/Adverse Reactions: Allergy/AdvReac Type Severity Reaction Status Date / Time aspirin Allergy Hives Verified 12/17/18 09:45 Penicillins [PCN] Allergy Unresponsiv Verified 12/17/18 09:45 e Sulfa (Sulfonamide Allergy Hives Verified 12/17/18 09:45 Antibiotics) Date of admission: 12/15/18 04:56 Primary care physician: PCP NONE Consults: 12/15/18 04:14 Consult to Neurology [CONS] Routine Consulting Provider: [facility] Reason for Consult: stroke/dysphagia Time Notified: 08:00 Call Completed: Yes Consult to Occupational Therapy [CONS] Routine Comment: Evaluate, develop and implement POC Reason for Consult: stroke Does patient have active BEDREST order?: Yes Is patient medically & hemodynamically stable?: Yes Patient assessed for mobility or mobilized this visit?: No Consult to Physical Therapy [CONS] Routine Comment: Evaluate, develop and implement POC Reason for Consult: stroke Does patient have active BEDREST order?: Yes Is patient medically & hemodynamically stable?: Yes Patient assessed for mobility or mobilized this visit?: No Consult to Fire Assistant [CONS] Routine Reason for SW Consult: stroke; may need inpatient rehab 12/15/18 05:12 Consult to Wound Care [CONS] Routine Reason for Consult: DFU Call Completed: No 12/16/18 13:35 Consult to Podiatry [CONS] Routine Consulting Provider: [facility] Reason for Consult: right foot wound. sees podiatry as outpatient. Would appreciate input for possible infection Time Notified: 13:40 Call Completed: Yes - Constitutional Vitals: Temp Pulse Resp BP Pulse Ox 98.1 F 70 16 156/81 98 12/19/18 07:08 12/19/18 16:36 12/19/18 16:36 12/19/18 16:36 12/19/18 16:36 - Patient Status Disposition: Home Health Service Condition: Good - Discharge Instructions Instructions: Carvedilol (By mouth), Clopidogrel (By mouth), Hypothyroidism (DC), Diabetic Foot Care (DC), Diabetes Mellitus Type 2 in Adults (DC), Chronic Hypertension (DC), Anemia (GEN) Follow Up With: Haim David MD [Partnered Physician] - 12/26/18 10:15 am - Attending Attestation I examined this patient and my medical decision-making was reviewed with the Resident Physician on 12/19/18. I agree with the documented findings, disposition and treatment plan as described except to the extent set forth bel ow. Ms Westbrook has been admitted due to parasthesias and concern for CVA. She was evaluated by podiatry due to chronic foot ulcer. Her blood pressure was elevated and meds adjusted. Today she is feeling OK. She is afebrile and ready for discharge home. Exam alert Comfortable Mucus membranes dry Heart not tachy No wheeze abd soft and nontender Dressing intact Normocephalic Plan D/C home today on prior meds. Caution taking meds on empty stomach Follow up as arranged. <Kevin Brennan - Last Filed: 12/19/18 20:17> - NOTES TO OUTPATIENT PROVIDER Notes to Outpatient Provider: Ms Westbrook was admitted on 12/15 for slurred speech. MRI was negative for acute infarct. Since she is allergic to aspirin, recommend she continue Plavix and statin after discharge. HTN management was also escalated by increasing home Coreg to 12.5g BID. During admission she completed a 5 day course of Levaquin for pneumonia as found on chest CT and for left sided serous otitis media. Podiatry evaluated right sided foot wound, but it was determined to not be infectious at this time. Recommend follow up with PCP in 3- 5 days. Orders not resulted at time of discharge: Pending orders 12/15/18 16:09 Culture,Sputum with Gram Stain [RM] Routine 12/15/18 16:38 Culture,Blood [BC] Stat Date of Encounter: 12/19/18 Time of Encounter: 08:30 - Discharge Diagnosis (1) Facial paresthesia Priority: Primary Status: Chronic Assessment and Plan: CT head revealed diffuse atrophic changes with findings suggesting chronic microvascular ischemia and an old right frontal lobe infarct. Head CTA revealed no evidence of intracerebral arterial stenosis, filling defect, or aneurysm. Patent posterior circulation, without evidence of stenosis, filling defect, or aneurysm. Chronic right frontal infarct. [facility] recommended TPA. However, patient and family refused and preferred to pursue a workup here at [place]. Furthermore, most of her symptoms had resolved at that point. Dysplasia is slowly improving. 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 MRI brain revealed no acute infarct or acute intracranial process identified. Remote watershed infarct within the right cerebral hemisphere. Remote lacunar infarcts within the right basal ganglia and thalami. ECHO revealed LVEF 55-60%, moderate concentric left ventricular hypertrophy, moderate left ventricular diastolic dysfunction, the non coronary cusp of the aortic valve and the tip of the anterior mitral valve leaflet are thickened and echogenic, probably with calcified material. No evidence of pulmonary hypertension. Continue statin. Continue Plavix. Patient was not given Aspirin due to previous Aspirin allergy. Speech therapy recommended a clinically altered diabetic diet and assistance with all meals. (2) Diabetes type 2, controlled Priority: Primary Status: Chronic Assessment and Plan: Daughter reports brittle diabetes and abrupt hyoglycemia when she takes insulin. 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 (3) Left serous otitis media Priority: Secondary Status: Resolved Qualifiers: Chronicity: acute Recurrence: non-recurrent Qualified Code(s): H65.02 - A cute serous otitis media, left ear (4) Diabetic foot ulcer Priority: Primary Status: Chronic Qualifiers: Diabetic foot ulcer location: midfoot Diabetes mellitus type: type 1 Laterality: right Non-pressure ulcer stage: unspecified non-pressure ulcer stage Qualified Code(s): E10.621 - Type 1 diabetes mellitus with foot ulcer; L97.419 - Non-pressure chronic ulcer of right heel and midfoot with unspecified severity (5) ICAO (internal carotid artery occlusion) Priority: Secondary Status: Chronic Assessment and Plan: CTA neck revealed complete occlusion of the cervical right internal carotid artery at its origin, which becomes reconstituted by collateral flow at the [place] of [place]. Mild atherosclerotic disease of the left internal carotid artery, without evidence of flow-limiting stenosis by NASCET criteria. [facility] did not recommend intervention at this time. Continue risk factor modification. Recommend outpatient follow-up with vascular surgery. Qualifiers: Laterality: right Qualified Code(s): I65.21 - Occlusion and stenosis of right carotid artery (6) Pulmonary nodules Priority: Secondary Status: Chronic Assessment and Plan: CTA neck revealed multiple scattered nonspecific biapical pulmonary nodules, the largest measures 6 mm within the right upper lobe. Chest CT revealed 9 mm noncalcified nodule within the left lower lobe, consider CT at 3 months, PET/CT, or tissue sampling (7) HTN (hypertension) Priority: Secondary Status: Chronic Assessment and Plan: Blood pressure is elevated Continue Coreg 12.5mg Continue Lisinopril 40mg Continue Lasix Continue Aldactone 50mg Qualifiers: Hypertension type: essential hypertension Qualified Code(s): I10 - Essential (primary) hypertension (8) Hypothyroidism Priority: Secondary Status: Chronic Assessment and Plan: TSH level 6.667 Free T4 1.38 Continue Synthroid. Recommend f/u with PCP for re-evaluation in 6 weeks Qualifiers: Hypothyroidism type: acquired Qualified Code(s): E03.9 - Hypothyroidism, unspecified (9) Anemia Priority: Secondary Status: Chronic Assessment and Plan: Appears chronic since November 2018. No active signs of bleeding. Iron studies reveal iron deficiency anemia B12 and folate levels are WNL Fecal occult blood test negative Continue home iron supplementation. Qualifiers: Anemia type: iron deficiency Iron deficiency anemia type: unspecified iron deficiency Qualified Code(s): D50.9 - Iron deficiency anemia, unspecified Hospital course: Ms. Westbrook is a 68 year old female with PMH of CHF, COPD, CAD, previous CVAs, DM2, and HTN. She was admitted on 12/15/18 for right-sided weakness and numbness as well as some slurred speech. Upon arrival to the ER, patient was quickly seen and evaluated and a stroke alert was called. There was a tele-medicine robot consultation with [facility] neurolog[facility] who recommended TPA. However, patient and family refused and preferred to pursue a workup here at [place]. Furthermore, most of her symptoms had resolved at that point. She also then underwent CTA of the head and neck, which revealed complete occlusion of the right internal carotid artery. CTA neck revealed multiple scattered nonspecific biapical pulmonary nodules as well with the largest measuring 6 mm within the right upper lobe. [facility] was contacted again and did not recommend further intervention. MRI brain revealed no acute infarct or acute intracranial process identified. Remote watershed infarct within the right cerebral hemisphere. Remote lacunar infarcts within the right basal ganglia and thalami. Neurology recommended she maintain stroke regimen of Plavix, antihypertensives therapy, along with aggressive management of her diabetes and hyperlipidemia. Chest CT revealed bronchial wall thickening and diffusely distributed bilateral punctate ill-defined centrilobular nodules in branching configuration, likely infectious airways disease. Urine Legionella and strep pneumo antigens were negative, MRSA nasal swab negative. Culture was also obtained from the left ear with left ear serous otitis media which was negative. She completed a 5 day course of Levaquin for both the PNA and the serous otitis media. Her right sided diabetic foot wound was evaluated by podiatry who recommended maxsorb AG, and dry bulk dressing, along with collagen at home. The wound was not felt to be an infectious source at this time, but the patient and her daughter were advised to watch closely and follow up with podiatry as outpatient. Wound culture from foot wound was obtained and was negative. Pt also was persistently hypertensive after acute CVA was excluded. Home Coreg was increased to 12.5mg BID. Pt was ad vised to follow up with her PCP in 3-5 days after discharge for HTN management and further evaluation of pulmonary nodules noted on CTA neck. Discharge discussed with: patient, family, nurse - Time Spent with Patient Total time spent providing and/or coordinating discharge services: Date of admission: 12/15/18 04:56 Primary care physician: PCP NONE Consults: 12/15/18 04:14 Consult to Neurology [CONS] Routine Consulting Provider: Neurology [facility] Reason for Consult: stroke/dysphagia Time Notified: 08:00 Call Completed: Yes Consult to Occupational Therapy [CONS] Routine Comment: Evaluate, develop and implement POC Reason for Consult: stroke Does patient have active BEDREST order?: Yes Is patient medically & hemodynamically stable?: Yes Patient assessed for mobility or mobilized this visit?: No Consult to Physical Therapy [CONS] Routine Comment: Evaluate, develop and implement POC Reason for Consult: stroke Does patient have active BEDREST order?: Yes Is patient medically & hemodynamically stable?: Yes Patient assessed for mobility or mobilized this visit?: No Consult to Fire Assistant [CONS] Routine Reason for SW Consult: stroke; may need inpatient rehab 12/15/18 05:12 Consult to Wound Care [CONS] Routine Reason for Consult: DFU Call Completed: No 12/16/18 13:35 Consult to Podiatry [CONS] Routine Consulting Provider: [facility] Reason for Consult: right foot wound. sees podiatry as outpatient. Would appreciate input for possible infection Time Notified: 13:40 Call Completed: Yes Discharging clinician: Kevin Brennan - Constitutional Vitals: Temp Pulse Resp BP Pulse Ox 98.1 F 70 16 148/82 96 12/19/18 07:08 12/19/18 11:45 12/19/18 11:45 12/19/18 11:45 12/19/18 11:45 General appearance: Present: cooperative, A&O X 3, pleasant, no acute distress, answers questions appropriately Exam: General: cooperative, A&O X 3, pleasant, no acute distress, answers questions appropriately Head:atraumatic, normal inspection Eyes: PERRL, EOMI, sclera anicteric, conjunctiva pink Neck: full ROM, supple Lungs: CTAB. non-labored breathing. no rales, rhonchi, or wheezes Heart: distant heart sounds, RRR, +S1, +S2. No murmurs, clicks, or rubs appreciated GI: abdomen soft, non-tender, non-distended, normal bowel sounds Extremities: warm, radial pulses palpable and symmetrical. No calf tenderness, pedal edema, tenderness. Right dorsal foot ulcer, dressing in place. Contusion to the mid-lateral UE. Neuro: alert, oriented X3, strengths equal and symetr throughout, right sided facial droop (subtle), speech deficit with mild slurred speech, right upper extremity intention tremor, chronic per daughter Skin: dry, warm, right dorsal foot ulcer, dressing in place - Patient Status Functional capacity at discharge: uses cane/walker Overall status at discharge: patient is back to baseline - Diet and Activity Activity: increase activity as tolerated, resume usual activities as tolerated Diet: diabetic diet (mechanically soft )
[2018-12-19 16:40] VITALS: BP 156/81
--- NOTE | 2018-12-19 16:55 | Physician Discharge Referral ---
Home Health/Hosp Referral Info Transfer to: Home Health Provider in Charge Post Discharge: PCP - Diagnosis (1) Diabetes type 2, controlled Priority: Secondary Status: Chronic (2) Left serous otitis media Priority: Secondary Status: Resolved (3) Diabetic foot ulcer Priority: Primary Status: Chronic (4) ICAO (internal carotid artery occlusion) Priority: Secondary Status: Chronic (5) Pulmonary nodules Priority: Secondary Status: Chronic (6) HTN (hypertension) Priority: Secondary Status: Chronic (7) Hypothyroidism Priority: Secondary Status: Chronic (8) Anemia Priority: Secondary Status: Chronic (9) Facial paresthesia Priority: Secondary Status: Chronic - Respiratory Orders Oxygen / L per min (keep sat greater than 90%) Smoking Cessation: Smoking cessation has been advised. For more information, call the [place] Tobacco Quit Line at 6-466-JVLJ-NOW. - Diet/Nutrition Diet/Nutrition Orders: No Added Salt (SETH), No Concentrated Sweets - Activity Activity Orders: Ambulate - Services Needed Following services are medically necessary services: Nursing, Physical Therapy, Occupational Therapy - Transfer Medications Prescriptions: Carvedilol [Coreg] 12.5 mg PO BIDWM 30 Days #60 tablet Clopidogrel [Plavix] 75 mg PO DAILY 30 Days #30 tablet Nystatin Cream [Mycostatin Cream] 1 appl TP TID 5 Days #1 tube Home Medications: Albuterol Sulfate [Ventolin Hfa] 1 puff IH Q6H PRN 12/15/18 [History] Atorvastatin [Lipitor] 80 mg PO HS 12/15/18 [History] Cyclosporine [Restasis] 1 each OP BID 12/15/18 [History] Esomeprazole Magnesium [Nexium] 40 mg PO BID 12/15/18 [History] Famotidine [Pepcid] 40 mg PO DAILY 12/15/18 [History] Ferrous Sulfate [Iron] 325 mg PO BID 12/15/18 [History] Fluticasone Propionate [Flovent Diskus] 1 spray IH DAILY 12/15/18 [History] Furosemide [Lasix] 40 mg PO DAILY 12/15/18 [History] Insulin ASPART [Novolog Flexpen] 0 unit SQ TIDWM PRN 12/15/18 [History] Levothyroxine Sodium [Levoxyl] 75 mcg PO DAILY 12/15/18 [History] Levothyroxine Sodium [Synthroid] 200 mcg PO DAILY 12/15/18 [History] Lisinopril [Zestril] 40 mg PO DAILY 12/15/18 [History] Multivit-Min/Iron/Folic Acid/K [Adults Multivitamin Tablet] 1 tab PO DAILY 12/15/18 [History] Mupirocin [Bactroban Oint] 1 appl TP Q48H 12/15/18 [History] Pregabalin [Lyrica] 75 mg PO HS 12/15/18 [History] Tizanidine HCl [Zanaflex] 4 mg PO BID PRN 12/15/18 [History] Calcium Carbonate [Tums] 500 mg PO DAILY PRN 12/17/18 [History] Dextran 70/Hypromellose [Genteal Tears 0.1%-0.3% Drop] 1 drop BOTH EYES HS 12/17/18 [History] Docusate [Colace] 100 mg PO BID 12/17/18 [History] Loratadine [Claritin] 10 mg PO DAILY 12/17/18 [History] OxyCODONE/APAP 7.5/325 [Percocet 7.5/325 MG] 1 tab PO QID PRN 12/17/18 [History] Sennosides [Senna] 8.6 mg PO DAILY 12/17/18 [History] Spironolactone 50 mg PO DAILY 12/17/18 [History] Carvedilol [Coreg] 12.5 mg PO BIDWM 30 Days #60 tablet 12/19/18 [Rx] Clopidogrel [Plavix] 75 mg PO DAILY 30 Days #30 tablet 12/19/18 [Rx] Nystatin Cream [Mycostatin Cream] 1 appl TP TID 5 Days #1 tube 12/19/18 [Rx] Allergies/Adverse Reactions: Allergy/AdvReac Type Severity Reaction Status Date / Time aspirin Allergy Hives Verified 12/17/18 09:45 Penicillins [PCN] Allergy Unresponsiv Verified 12/17/18 09:45 e Sulfa (Sulfonamide Allergy Hives Verified 12/17/18 09:45 Antibiotics) Certification: Further, I certify that my clinical findings support that this patient is ho mebound (i.e. absences from home require considerable and taxing effort and are for medical reasons or judaism services or infrequently or short duration when for other reasons) because: Homebound Reason: Patient requires assistance of a person or device to safely leave home, Leaving home requires considerable and taxing effort due to condition, Severity of cardiac or pulmonary status limits activity tolerance Attestation: My signature below is to certify that this patient is under my care and that I, or nurse practitioner, or a physician's itinerant teacher assistant working with me, has a [id number] encounter with this patient.
== END 2018-12-19 18:43 | disposition home health service (06) | DRG 637 ==
LOC: 2NENU 23:13 → EMEROOARM 23:13 → 2NENU 12-15 01:47 → SUATTDRO 12-15 04:56
PROVIDERS: ADMIT Family Medicine; ATTEND Internal Medicine

== ENCOUNTER 2019-08-11 15:01 | Inpatient (IN) ==
[2019-08-11 15:44] LABS: Basophils # 0.1 K/mcL (0.0-0.2); Basophils % 0.9 %; Eosinophils # 0.1 K/mcL (0.0-0.6); Eosinophils % 1.9 %; Hematocrit 34.1 % (35.3-44.9); Hemoglobin 10.8 g/dL (11.5-15.4); Immature Granulocytes % 0.2 % (0-4); Lymphocytes # 2.4 K/mcL (0.6-4.6); Lymphocytes % 40.2 %; Mean Corpuscular HGB Conc 31.7 g/dL (31.6-35.5); Mean Corpuscular Hemoglobin 29.2 pg (28.0-33.3); Mean Corpuscular Volume 92.2 fL (83.0-100.0); Monocytes # 0.3 K/mcL (0.0-1.3); Monocytes % 5.5 %; Platelet Count 191 K/mcL (140-400); Segmented Neutrophils % 51.3 %; White Blood Count 5.8 K/mcL (4.3-11.1)
[2019-08-11 15:53] LABS: INR 1.1; Prothrombin Time 12.8 Seconds (9.4-12.1)
[2019-08-11 16:02] LABS: Alanine Aminotransferase 27 Units/L (7-52); Albumin 3.4 g/dL (3.5-5.7); Albumin/Globulin Ratio 1.3 (1.1-2.2); Alkaline Phosphatase 55 Units/L (34-104); Aspartate Amino Transferase 16 Units/L (13-39); BUN/Creatinine Ratio 11 (6-26); Bilirubin,Total 0.6 mg/dL (0.3-1.0); Blood Urea Nitrogen 15 mg/dL (8-23); Calcium 8.6 mg/dL (8.6-10.3); Carbon Dioxide 27 mEq/L (23-29); Chloride 110 mEq/L (98-107); Globulin 2.7 g/dL (2.4-3.5); Glucose 113 mg/dL (70-105); Magnesium 1.9 mg/dL (1.6-2.6); Osmolality,Calculated 294 (280-300); Potassium 3.5 mEq/L (3.5-5.1); Sodium 141 mEq/L (136-145); Total Protein 6.1 g/dL (6.4-8.9); Troponin I < 0.03 ng/mL (< 0.04); eGFR For African Americans 46 (> 60); eGFR For Non-African Americans 38 (> 60)
[2019-08-11] MEDS ORDERED: Ondansetron 4 MG/2 ML VIAL IVP PRN (17:33)
[2019-08-11] MEDS ORDERED: Dextrose Gel 15 GM/37.5 ML TUBE PO PRN ×2 (17:38)
[2019-08-11] MEDS ORDERED: *HR* Dextrose 50 % in Water (Syg) 50 ML SYRINGE IVP PRN (17:38)
[2019-08-11] MEDS ORDERED: D5% in Water 1,000 ML IVC PRN (17:38)
[2019-08-11] MEDS: amLODIPine 5 MG TABLET PO SCH (20:35)
[2019-08-11] MEDS: Lactulose Oral Soln 20 GM/30 ML UDC PO SCH (20:35)
[2019-08-11] MEDS: Artificial Tears SOLN 15 ML BOTTLE BOTH EYES SCH (20:39)
[2019-08-11] MEDS: Insulin LISPRO 300 UNITS/3 ML VIAL SQ SCH (20:39)
[2019-08-11] MEDS ORDERED: DEXTRAN BOTH EYES SCH (21:00)
[2019-08-11] MEDS ORDERED: HYPROMELLOSE BOTH EYES SCH (21:00)
[2019-08-11] MEDS ORDERED: [UNRECOGNIZED DRUG - OTHER] BOTH EYES SCH (21:00)
[2019-08-12 05:00] LABS: Hematocrit 31.1 % (35.3-44.9); Hemoglobin 9.9 g/dL (11.5-15.4); Mean Corpuscular HGB Conc 31.8 g/dL (31.6-35.5); Mean Corpuscular Hemoglobin 29.3 pg (28.0-33.3); Mean Platelet Volume 11.7 fL (9.4-12.4); Platelet Count 186 K/mcL (140-400); Red Blood Count 3.38 M/mcL (3.82-4.97); White Blood Count 4.5 K/mcL (4.3-11.1)
[2019-08-12 05:15] LABS: Calcium 8.4 mg/dL (8.6-10.3); Chol/HDL Ratio 5.1 (0-4.9); Magnesium 1.8 mg/dL (1.6-2.6); Potassium 3.2 mEq/L (3.5-5.1)
[2019-08-12] MEDS: Lactulose Oral Soln 20 GM/30 ML UDC PO SCH ×2 (06:23→16:44)
[2019-08-12 07:52] LABS: Estimated Average Glucose 146 mg/dl
[2019-08-12] MEDS: Insulin LISPRO 300 UNITS/3 ML VIAL SQ SCH ×4 (08:06→20:17)
[2019-08-12] MEDS: Sennosides 8.6 MG TABLET PO SCH (08:07)
[2019-08-12] MEDS: amLODIPine 5 MG TABLET PO SCH (08:07)
[2019-08-12] MEDS ORDERED: Famotidine 20 MG TABLET PO SCH (09:00)
[2019-08-12] MEDS ORDERED: Furosemide 40 MG TABLET PO SCH (09:00)
[2019-08-12] MEDS: Artificial Tears SOLN 15 ML BOTTLE BOTH EYES SCH ×2 (10:05→20:17)
[2019-08-12] MEDS: Acetaminophen 325 MG TABLET PO PRN ×2 (12:05→21:10)
[2019-08-13] MEDS: Lactulose Oral Soln 20 GM/30 ML UDC PO SCH ×2 (06:03→17:23)
[2019-08-13] MEDS ORDERED: NON-FORMULARY MEDICATION 1 EACH EACH (Famotidine [Pepcid] 40 MG) PO SCH (09:00)
[2019-08-13] MEDS: Furosemide 40 MG TABLET PO SCH ×2 (10:39→20:38)
[2019-08-13] MEDS: Famotidine 20 MG TABLET PO SCH (10:40)
[2019-08-13] MEDS: Lisinopril 20 MG TABLET PO SCH (10:40)
[2019-08-13] MEDS: tiZANidine 4 MG TABLET PO SCH ×3 (10:40→20:36)
[2019-08-13] MEDS: Cholecalciferol (D-3) 1,000 UNIT (25MCG) TABLET PO SCH (10:40)
[2019-08-13] MEDS: amLODIPine 5 MG TABLET PO SCH (10:40)
[2019-08-13] MEDS: Insulin LISPRO 300 UNITS/3 ML VIAL SQ SCH ×4 (10:43→19:56)
[2019-08-13] MEDS: Sennosides 8.6 MG TABLET PO SCH (10:44)
[2019-08-13] MEDS: Artificial Tears SOLN 15 ML BOTTLE BOTH EYES SCH ×2 (10:44→21:57)
[2019-08-13] MEDS: 0.9 % Sodium Chloride 1,000 ML IVC SCH (12:49)
[2019-08-13] MEDS: Insulin DETEMIR 100 UNIT/ML X5UNITS SQ SCH (21:08)
[2019-08-14] MEDS: Lactulose Oral Soln 20 GM/30 ML UDC PO SCH ×2 (05:39→17:28)
[2019-08-14 09:31] LABS: Hematocrit 34.1 % (35.3-44.9); Hemoglobin 10.7 g/dL (11.5-15.4); Mean Corpuscular HGB Conc 31.4 g/dL (31.6-35.5); Mean Corpuscular Hemoglobin 28.3 pg (28.0-33.3); Mean Corpuscular Volume 90.2 fL (83.0-100.0); Mean Platelet Volume 10.9 fL (9.4-12.4); Platelet Count 183 K/mcL (140-400); Red Blood Count 3.78 M/mcL (3.82-4.97); Red Cell Distribution Width 15.1 % (11.5-14.5); White Blood Count 4.9 K/mcL (4.3-11.1)
[2019-08-14 09:49] LABS: Calcium 8.4 mg/dL (8.6-10.3); Potassium 3.4 mEq/L (3.5-5.1)
[2019-08-14] MEDS: Cholecalciferol (D-3) 1,000 UNIT (25MCG) TABLET PO SCH (10:14)
[2019-08-14] MEDS: tiZANidine 4 MG TABLET PO SCH ×3 (10:14→21:11)
[2019-08-14] MEDS: amLODIPine 5 MG TABLET PO SCH (10:15)
[2019-08-14] MEDS: Furosemide 40 MG TABLET PO SCH ×2 (10:15→21:06)
[2019-08-14] MEDS: Famotidine 20 MG TABLET PO SCH (10:15)
[2019-08-14] MEDS: Sennosides 8.6 MG TABLET PO SCH (10:15)
[2019-08-14] MEDS: Lisinopril 20 MG TABLET PO SCH (10:15)
[2019-08-14] MEDS: 0.9 % Sodium Chloride 1,000 ML IVC SCH (10:24)
[2019-08-14] MEDS: Artificial Tears SOLN 15 ML BOTTLE BOTH EYES SCH ×2 (10:40→21:10)
[2019-08-14] MEDS: Insulin LISPRO 300 UNITS/3 ML VIAL SQ SCH ×4 (10:40→21:06)
[2019-08-14] MEDS ORDERED: Ringers Solution, Lactated 500 ML IVC ONE (12:23)
[2019-08-14] MEDS: Insulin DETEMIR 100 UNIT/ML X5UNITS SQ SCH (22:20)
[2019-08-15 04:01] LABS: Hematocrit 33.4 % (35.3-44.9); Hemoglobin 10.8 g/dL (11.5-15.4); Mean Corpuscular HGB Conc 32.3 g/dL (31.6-35.5); Mean Corpuscular Volume 89.8 fL (83.0-100.0); Mean Platelet Volume 11.1 fL (9.4-12.4); Platelet Count 199 K/mcL (140-400); Red Blood Count 3.72 M/mcL (3.82-4.97); Red Cell Distribution Width 15.2 % (11.5-14.5); White Blood Count 5.1 K/mcL (4.3-11.1)
[2019-08-15 04:17] LABS: Calcium 8.6 mg/dL (8.6-10.3); Potassium 3.6 mEq/L (3.5-5.1)
[2019-08-15] MEDS: *HR* Enoxaparin 40 MG/0.4 ML SYRINGE SQ SCH (05:25)
[2019-08-15] MEDS: Lactulose Oral Soln 20 GM/30 ML UDC PO SCH ×2 (05:25→17:14)
[2019-08-15] MEDS: Insulin LISPRO 300 UNITS/3 ML VIAL SQ SCH ×4 (08:36→22:09)
[2019-08-15] MEDS: *HR* OxyCODONE/APAP 7.5/325 TABLET PO PRN (10:41)
[2019-08-15] MEDS: Cholecalciferol (D-3) 1,000 UNIT (25MCG) TABLET PO SCH (10:41)
[2019-08-15] MEDS: tiZANidine 4 MG TABLET PO SCH ×3 (10:41→20:24)
[2019-08-15] MEDS: amLODIPine 5 MG TABLET PO SCH (10:42)
[2019-08-15] MEDS: Sennosides 8.6 MG TABLET PO SCH (10:43)
[2019-08-15] MEDS: Lisinopril 20 MG TABLET PO SCH (10:43)
[2019-08-15] MEDS: Furosemide 40 MG TABLET PO SCH (10:43)
[2019-08-15] MEDS: Famotidine 20 MG TABLET PO SCH (10:43)
[2019-08-15] MEDS: Artificial Tears SOLN 15 ML BOTTLE BOTH EYES SCH ×2 (10:44→22:08)
[2019-08-15] MEDS ORDERED: Ringers Solution, Lactated 1,000 ML IVC ONE (15:21)
[2019-08-15] MEDS: Insulin DETEMIR 100 UNIT/ML X5UNITS SQ SCH (20:24)
[2019-08-16 02:37] LABS: Calcium 8.5 mg/dL (8.6-10.3)
[2019-08-16] MEDS: *HR* Enoxaparin 40 MG/0.4 ML SYRINGE SQ SCH (05:51)
[2019-08-16] MEDS: Insulin LISPRO 300 UNITS/3 ML VIAL SQ SCH ×4 (07:16→23:00)
[2019-08-16] MEDS: Famotidine 20 MG TABLET PO SCH (07:30)
[2019-08-16] MEDS: Artificial Tears SOLN 15 ML BOTTLE BOTH EYES SCH ×2 (07:30→22:50)
[2019-08-16] MEDS: Sennosides 8.6 MG TABLET PO SCH ×2 (07:30→07:40)
[2019-08-16] MEDS: tiZANidine 4 MG TABLET PO SCH ×3 (07:30→23:10)
[2019-08-16] MEDS: amLODIPine 5 MG TABLET PO SCH (07:30)
[2019-08-16] MEDS: Lisinopril 20 MG TABLET PO SCH (07:30)
[2019-08-16] MEDS: Cholecalciferol (D-3) 1,000 UNIT (25MCG) TABLET PO SCH (07:30)
[2019-08-16] MEDS: *HR* OxyCODONE/APAP 7.5/325 TABLET PO PRN (07:44)
[2019-08-16] MEDS: 0.9 % Sodium Chloride 1,000 ML IVC SCH ×2 (12:15→23:31)
[2019-08-16 16:51] LABS: Bilirubin,Urine Negative (Negative); Blood,Urine Negative (Negative); Clarity,Urine Clear (Clear); Color,Urine Yellow (Yellow); Glucose,Urine (UA) Normal (Normal); Ketones,Urine Negative (Negative); Leukocyte Esterase,Urine Negative (Negative); Nitrite,Urine Negative (Negative); Protein,Urine 100 mg/dL (Neg-Trace); Specific Gravity,Urine 1.011 (1.010-1.025); Urobilinogen,Urine Normal (Normal)
[2019-08-16 16:53] LABS: Bacteria,Urine None Seen per hpf (None-Few); Hyaline Casts,Urine None Seen per lpf (None-Few); Squamous Epithelial Cell,Urine Many per lpf (None-Few); WBC,Urine 0-3 per hpf (0-3)
[2019-08-16 17:33] LABS: Protein/Creatinine Ratio,Urine 1.81 mg/mg (0.00-0.20); Sodium, Urine 59.7 mEq/L
[2019-08-16] MEDS: Insulin DETEMIR 100 UNIT/ML X5UNITS SQ SCH (23:12)
[2019-08-17] MEDS: *HR* Enoxaparin 30 MG/0.3 ML SYRINGE SQ SCH (06:21)
[2019-08-17] MEDS: Artificial Tears SOLN 15 ML BOTTLE BOTH EYES SCH ×2 (07:50→21:50)
[2019-08-17] MEDS: Insulin LISPRO 300 UNITS/3 ML VIAL SQ SCH ×4 (07:50→22:06)
[2019-08-17] MEDS: Famotidine 20 MG TABLET PO SCH (07:51)
[2019-08-17] MEDS: tiZANidine 4 MG TABLET PO SCH ×3 (07:51→21:51)
[2019-08-17] MEDS: Sennosides 8.6 MG TABLET PO SCH (07:51)
[2019-08-17] MEDS: amLODIPine 5 MG TABLET PO SCH (07:51)
[2019-08-17] MEDS: Cholecalciferol (D-3) 1,000 UNIT (25MCG) TABLET PO SCH (07:51)
[2019-08-17 10:45] LABS: Immature Reticulocyte % 6.7 % (11.0-38.0); Retculocyte # 0.04 M/mcL (0.05-0.10); Reticulocyte % 1.2 % (1.6-2.8)
[2019-08-17 11:10] LABS: Calcium 7.8 mg/dL (8.6-10.3); Potassium 3.7 mEq/L (3.5-5.1)
[2019-08-17 11:12] LABS: Magnesium 1.5 mg/dL (1.6-2.6)
[2019-08-17 11:37] LABS: Folate 6.6 ng/mL (3.0-16.0)
[2019-08-17 12:47] LABS: Calcium 8.2 mg/dL (8.6-10.3); Potassium 3.8 mEq/L (3.5-5.1)
[2019-08-17] MEDS: Acetaminophen 325 MG TABLET PO PRN (16:24)
[2019-08-17] MEDS: Insulin DETEMIR 100 UNIT/ML X5UNITS SQ SCH (21:51)
[2019-08-18] MEDS: *HR* Enoxaparin 30 MG/0.3 ML SYRINGE SQ SCH (06:50)
[2019-08-18] MEDS: Insulin LISPRO 300 UNITS/3 ML VIAL SQ SCH ×3 (07:55→18:03)
[2019-08-18] MEDS: amLODIPine 5 MG TABLET PO SCH (10:46)
[2019-08-18] MEDS: Famotidine 20 MG TABLET PO SCH (10:46)
[2019-08-18] MEDS: Cholecalciferol (D-3) 1,000 UNIT (25MCG) TABLET PO SCH (10:47)
[2019-08-18] MEDS: Sennosides 8.6 MG TABLET PO SCH (10:47)
[2019-08-18] MEDS: tiZANidine 4 MG TABLET PO SCH ×2 (10:47→14:47)
[2019-08-18] MEDS: Artificial Tears SOLN 15 ML BOTTLE BOTH EYES SCH (10:55)
[2019-08-18] MEDS ORDERED: 0.9 % Sodium Chloride 1,000 ML IVC SCH (13:30)
[2019-08-18 14:56] LABS: Hemoglobin 10.7 g/dL (11.5-15.4); Mean Corpuscular HGB Conc 31.5 g/dL (31.6-35.5); Mean Corpuscular Hemoglobin 28.6 pg (28.0-33.3); Mean Corpuscular Volume 90.9 fL (83.0-100.0); Platelet Count 199 K/mcL (140-400); Red Blood Count 3.74 M/mcL (3.82-4.97); White Blood Count 6.1 K/mcL (4.3-11.1)
[2019-08-18 14:59] LABS: Calcium 8.2 mg/dL (8.6-10.3); Complement C3 114 mg/dL (87-200); Potassium 3.7 mEq/L (3.5-5.1)
[2019-08-18 15:00] LABS: Albumin 2.8 g/dL (3.5-5.7); Calcium 8.2 mg/dL (8.6-10.3); Phosphorous 3.5 mg/dL (2.7-4.5); Potassium 3.7 mEq/L (3.5-5.1)
[2019-08-18 15:37] VITALS: BP 152/91
[2019-08-20 10:30] LABS: Alpha 2 Globulin (PEP) 0.93 g/dL (0.48-1.05); Beta Globulin (PEP) 0.62 g/dL (0.48-1.10)
[2019-08-20 11:36] LABS: IFE Reflexed NOT DONE
[2019-08-21 08:27] LABS: ANA IgG by ELISA NONE DETECTED (None Detected)
== END 2019-08-18 19:40 | disposition home health service (06) | DRG 65 ==
LOC: 3BNU 15:01 → EMEROOARM 15:01 → SUATTDRO 17:42 → 3BNU 18:37 → SUATTDRO 08-12 14:12
PROVIDERS: ADMIT Internal Medicine; ATTEND Internal Medicine

== ENCOUNTER 2019-09-14 16:55 | Inpatient (IN) ==
[2019-09-14 18:24] LABS: Hematocrit 34.1 % (35.3-44.9); Hemoglobin 11.1 g/dL (11.5-15.4); Mean Corpuscular HGB Conc 32.6 g/dL (31.6-35.5); Mean Corpuscular Hemoglobin 29.3 pg (28.0-33.3); Platelet Count 162 K/mcL (140-400); Red Blood Count 3.79 M/mcL (3.82-4.97); Red Cell Distribution Width 14.9 % (11.5-14.5); White Blood Count 6.2 K/mcL (4.3-11.1)
[2019-09-14 18:30] LABS: INR 1.2; Prothrombin Time 13.8 Seconds (9.4-12.1)
[2019-09-14 18:32] LABS: Activated Partial Thrombo Time 44.3 Seconds (26.0-36.0)
[2019-09-14 18:45] LABS: BUN/Creatinine Ratio 11 (6-26); Blood Urea Nitrogen 15 mg/dL (8-23); Calcium 8.7 mg/dL (8.6-10.3); Carbon Dioxide 23 mEq/L (23-29); Chloride 111 mEq/L (98-107); Glucose 159 mg/dL (70-105); Osmolality,Calculated 300 (280-300); Potassium 3.8 mEq/L (3.5-5.1); Sodium 143 mEq/L (136-145); eGFR For African Americans 45 (> 60); eGFR For Non-African Americans 37 (> 60)
[2019-09-14 18:46] LABS: Troponin I < 0.03 ng/mL (< 0.04)
[2019-09-14] MEDS ORDERED: 0.9 % Sodium Chloride 1,000 ML IVC SCH (21:30)
[2019-09-14] MEDS ORDERED: *HR* Dextrose 50 % in Water (Syg) 50 ML SYRINGE IVP PRN (21:32)
[2019-09-14] MEDS ORDERED: D5% in Water 1,000 ML IVC PRN (21:32)
[2019-09-14] MEDS ORDERED: Dextrose Gel 15 GM/37.5 ML TUBE PO PRN ×2 (21:32)
[2019-09-14] MEDS: Insulin DETEMIR 100 UNIT/ML X5UNITS SQ SCH ×2 (22:05→22:26)
[2019-09-14] MEDS: Insulin LISPRO 300 UNITS/3 ML VIAL SQ SCH (22:21)
[2019-09-14 22:40] LABS: Bilirubin,Urine Negative (Negative); Blood,Urine Negative (Negative); Clarity,Urine Cloudy (Clear); Color,Urine Yellow (Yellow); Glucose,Urine (UA) Normal (Normal); Ketones,Urine Negative (Negative); Leukocyte Esterase,Urine Trace (Negative); Nitrite,Urine Negative (Negative); PH,Urine 6.5 pH Units (5.0-8.0); Protein,Urine 100 mg/dL (Neg-Trace); Specific Gravity,Urine 1.012 (1.010-1.025); Urobilinogen,Urine Normal (Normal)
[2019-09-14 22:46] LABS: Bacteria,Urine Many per hpf (None-Few); Hyaline Casts,Urine None Seen per lpf (None-Few); Squamous Epithelial Cell,Urine Few per lpf (None-Few); WBC,Urine 30-50 per hpf (0-3)
[2019-09-14] MEDS: Acetaminophen 325 MG TABLET PO PRN (23:58)
[2019-09-15 03:26] LABS: Hematocrit 29.6 % (35.3-44.9); Hemoglobin 9.9 g/dL (11.5-15.4); Mean Corpuscular HGB Conc 33.4 g/dL (31.6-35.5); Mean Corpuscular Hemoglobin 29.9 pg (28.0-33.3); Mean Corpuscular Volume 89.4 fL (83.0-100.0); Mean Platelet Volume 10.7 fL (9.4-12.4); Platelet Count 159 K/mcL (140-400); Red Blood Count 3.31 M/mcL (3.82-4.97); Red Cell Distribution Width 14.9 % (11.5-14.5); White Blood Count 5.5 K/mcL (4.3-11.1)
[2019-09-15 03:48] LABS: Alanine Aminotransferase 20 Units/L (7-52); Albumin 2.9 g/dL (3.5-5.7); Albumin/Globulin Ratio 1.3 (1.1-2.2); Alkaline Phosphatase 41 Units/L (34-104); Aspartate Amino Transferase 12 Units/L (13-39); BUN/Creatinine Ratio 11 (6-26); Bilirubin,Total 0.5 mg/dL (0.3-1.0); Blood Urea Nitrogen 14 mg/dL (8-23); Carbon Dioxide 24 mEq/L (23-29); Chloride 114 mEq/L (98-107); Globulin 2.3 g/dL (2.4-3.5); Glucose 156 mg/dL (70-105); Osmolality,Calculated 300 (280-300); Potassium 3.3 mEq/L (3.5-5.1); Sodium 143 mEq/L (136-145); Total Protein 5.2 g/dL (6.4-8.9); Troponin I < 0.03 ng/mL (< 0.04); eGFR For African Americans 51 (> 60); eGFR For Non-African Americans 42 (> 60)
[2019-09-15 08:01] LABS: Estimated Average Glucose 154 mg/dl
[2019-09-15] MEDS ORDERED: tiZANidine 4 MG TABLET PO SCH (09:00)
[2019-09-15] MEDS ORDERED: Famotidine 20 MG TABLET PO SCH (09:00)
[2019-09-15] MEDS: Insulin LISPRO 300 UNITS/3 ML VIAL SQ SCH ×3 (09:12→17:22)
[2019-09-15] MEDS: *HR* OxyCODONE/APAP 7.5/325 TABLET PO PRN (09:20)
[2019-09-15] MEDS ORDERED: Ondansetron 4 MG/2 ML VIAL IVP PRN (15:02)
[2019-09-15] MEDS ORDERED: Ondansetron 4 MG/2 ML VIAL ONE (15:04)
[2019-09-15] MEDS: Insulin DETEMIR 100 UNIT/ML X5UNITS SQ SCH (21:12)
[2019-09-16 04:53] LABS: Hematocrit 28.8 % (35.3-44.9); Hemoglobin 9.3 g/dL (11.5-15.4); Mean Corpuscular HGB Conc 32.3 g/dL (31.6-35.5); Mean Corpuscular Hemoglobin 29.5 pg (28.0-33.3); Mean Corpuscular Volume 91.4 fL (83.0-100.0); Mean Platelet Volume 11.4 fL (9.4-12.4); Platelet Count 150 K/mcL (140-400); Red Blood Count 3.15 M/mcL (3.82-4.97); Red Cell Distribution Width 15.3 % (11.5-14.5)
[2019-09-16 05:07] LABS: Calcium 8.1 mg/dL (8.6-10.3); Potassium 3.8 mEq/L (3.5-5.1)
[2019-09-16] MEDS ORDERED: Ringers Solution, Lactated 1,000 ML IVC SCH (07:45)
[2019-09-16] MEDS: Insulin LISPRO 300 UNITS/3 ML VIAL SQ SCH ×3 (09:31→17:27)
[2019-09-16] MEDS: amLODIPine 5 MG TABLET PO SCH (09:32)
[2019-09-16] MEDS: Famotidine 20 MG TABLET PO SCH (09:32)
[2019-09-16] MEDS: Insulin DETEMIR 100 UNIT/ML X5UNITS SQ SCH (21:40)
[2019-09-17 02:45] LABS: Hematocrit 29.2 % (35.3-44.9); Hemoglobin 9.5 g/dL (11.5-15.4); Mean Corpuscular HGB Conc 32.5 g/dL (31.6-35.5); Mean Corpuscular Hemoglobin 29.6 pg (28.0-33.3); Mean Platelet Volume 10.4 fL (9.4-12.4); Platelet Count 151 K/mcL (140-400); Red Blood Count 3.21 M/mcL (3.82-4.97); Red Cell Distribution Width 14.8 % (11.5-14.5); White Blood Count 5.7 K/mcL (4.3-11.1)
[2019-09-17 03:04] LABS: Calcium 8.4 mg/dL (8.6-10.3)
[2019-09-17] MEDS: Insulin LISPRO 300 UNITS/3 ML VIAL SQ SCH ×3 (09:01→17:31)
[2019-09-17] MEDS: Famotidine 20 MG TABLET PO SCH (09:06)
[2019-09-17] MEDS: amLODIPine 5 MG TABLET PO SCH (09:06)
[2019-09-17] MEDS: Ringers Solution, Lactated 1,000 ML IVC SCH (13:26)
[2019-09-17] MEDS: Insulin DETEMIR 100 UNIT/ML X5UNITS SQ SCH (22:07)
[2019-09-18] MEDS: Ringers Solution, Lactated 1,000 ML IVC SCH ×2 (05:49→21:33)
[2019-09-18 05:53] LABS: Hematocrit 29.6 % (35.3-44.9); Hemoglobin 9.7 g/dL (11.5-15.4); Mean Corpuscular HGB Conc 32.8 g/dL (31.6-35.5); Mean Corpuscular Hemoglobin 29.5 pg (28.0-33.3); Mean Platelet Volume 10.6 fL (9.4-12.4); Platelet Count 156 K/mcL (140-400); Red Blood Count 3.29 M/mcL (3.82-4.97); Red Cell Distribution Width 14.8 % (11.5-14.5); White Blood Count 5.3 K/mcL (4.3-11.1)
[2019-09-18 06:17] LABS: Calcium 8.6 mg/dL (8.6-10.3); Potassium 3.8 mEq/L (3.5-5.1)
[2019-09-18] MEDS: Famotidine 20 MG TABLET PO SCH (09:02)
[2019-09-18] MEDS: amLODIPine 5 MG TABLET PO SCH (09:02)
[2019-09-18] MEDS: Insulin LISPRO 300 UNITS/3 ML VIAL SQ SCH ×3 (12:14→18:19)
[2019-09-18] MEDS: Insulin DETEMIR 100 UNIT/ML X5UNITS SQ SCH (21:34)
[2019-09-19 04:17] LABS: Hematocrit 29.5 % (35.3-44.9); Hemoglobin 9.3 g/dL (11.5-15.4); Mean Corpuscular HGB Conc 31.5 g/dL (31.6-35.5); Mean Corpuscular Hemoglobin 29.3 pg (28.0-33.3); Mean Corpuscular Volume 93.1 fL (83.0-100.0); Mean Platelet Volume 10.9 fL (9.4-12.4); Platelet Count 149 K/mcL (140-400); Red Blood Count 3.17 M/mcL (3.82-4.97); White Blood Count 5.6 K/mcL (4.3-11.1)
[2019-09-19 04:38] LABS: Calcium 8.4 mg/dL (8.6-10.3); Potassium 4.1 mEq/L (3.5-5.1)
[2019-09-19] MEDS: Famotidine 20 MG TABLET PO SCH (09:25)
[2019-09-19] MEDS: amLODIPine 5 MG TABLET PO SCH (09:25)
[2019-09-19] MEDS: Insulin LISPRO 300 UNITS/3 ML VIAL SQ SCH ×3 (09:26→16:50)
[2019-09-19] MEDS: Acetaminophen 325 MG TABLET PO PRN (11:50)
[2019-09-19] MEDS: Ringers Solution, Lactated 1,000 ML IVC SCH (17:11)
[2019-09-19] MEDS: *HR* OxyCODONE/APAP 7.5/325 TABLET PO PRN (19:46)
[2019-09-19] MEDS: Insulin DETEMIR 100 UNIT/ML X5UNITS SQ SCH (19:47)
[2019-09-20 05:43] LABS: Hematocrit 28.8 % (35.3-44.9); Hemoglobin 9.4 g/dL (11.5-15.4); Mean Corpuscular HGB Conc 32.6 g/dL (31.6-35.5); Mean Corpuscular Hemoglobin 29.6 pg (28.0-33.3); Mean Corpuscular Volume 90.6 fL (83.0-100.0); Mean Platelet Volume 11.1 fL (9.4-12.4); Platelet Count 154 K/mcL (140-400); Red Blood Count 3.18 M/mcL (3.82-4.97); Red Cell Distribution Width 15.2 % (11.5-14.5); White Blood Count 5.7 K/mcL (4.3-11.1)
[2019-09-20 05:55] LABS: Calcium 8.1 mg/dL (8.6-10.3); Potassium 3.8 mEq/L (3.5-5.1)
[2019-09-20] MEDS: Insulin LISPRO 300 UNITS/3 ML VIAL SQ SCH ×3 (08:49→16:30)
[2019-09-20] MEDS: amLODIPine 5 MG TABLET PO SCH (08:49)
[2019-09-20] MEDS: Famotidine 20 MG TABLET PO SCH (08:49)
[2019-09-20] MEDS: *HR* OxyCODONE/APAP 7.5/325 TABLET PO PRN (11:00)
[2019-09-20] MEDS: Ringers Solution, Lactated 1,000 ML IVC SCH (13:57)
[2019-09-20] MEDS: *HR* Heparin 5,000 UNIT/ML VIAL SQ SCH (16:29)
[2019-09-20] MEDS: Insulin DETEMIR 100 UNIT/ML X5UNITS SQ SCH (20:58)
[2019-09-21 03:05] LABS: Hematocrit 28.9 % (35.3-44.9); Hemoglobin 9.5 g/dL (11.5-15.4); Mean Corpuscular HGB Conc 32.9 g/dL (31.6-35.5); Mean Corpuscular Hemoglobin 29.9 pg (28.0-33.3); Mean Corpuscular Volume 90.9 fL (83.0-100.0); Mean Platelet Volume 11.1 fL (9.4-12.4); Platelet Count 155 K/mcL (140-400); Red Blood Count 3.18 M/mcL (3.82-4.97); Red Cell Distribution Width 15.1 % (11.5-14.5); White Blood Count 5.7 K/mcL (4.3-11.1)
[2019-09-21 03:21] LABS: Calcium 8.2 mg/dL (8.6-10.3)
[2019-09-21] MEDS: *HR* Heparin 5,000 UNIT/ML VIAL SQ SCH ×2 (05:28→16:36)
[2019-09-21] MEDS ORDERED: Ringers Solution, Lactated 500 ML IVC ONE (07:35)
[2019-09-21] MEDS: Famotidine 20 MG TABLET PO SCH (08:08)
[2019-09-21] MEDS: Insulin LISPRO 300 UNITS/3 ML VIAL SQ SCH ×3 (08:08→16:36)
[2019-09-21] MEDS: amLODIPine 5 MG TABLET PO SCH (08:08)
[2019-09-21 15:48] LABS: Calcium 8.2 mg/dL (8.6-10.3); Potassium 5.1 mEq/L (3.5-5.1)
[2019-09-21] MEDS: Insulin DETEMIR 100 UNIT/ML X5UNITS SQ SCH (21:38)
[2019-09-21] MEDS: Ringers Solution, Lactated 1,000 ML IVC SCH (21:38)
[2019-09-22] MEDS: *HR* Heparin 5,000 UNIT/ML VIAL SQ SCH ×2 (05:50→18:26)
[2019-09-22 06:01] LABS: Bilirubin,Urine Negative (Negative); Blood,Urine Negative (Negative); Clarity,Urine Clear (Clear); Color,Urine Yellow (Yellow); Glucose,Urine (UA) Normal (Normal); Ketones,Urine Negative (Negative); Leukocyte Esterase,Urine Negative (Negative); Nitrite,Urine Negative (Negative); Protein,Urine 100 mg/dL (Neg-Trace); Specific Gravity,Urine 1.015 (1.010-1.025); Urobilinogen,Urine Normal (Normal)
[2019-09-22 06:04] LABS: Bacteria,Urine None Seen per hpf (None-Few); Hyaline Casts,Urine None Seen per lpf (None-Few); RBC,Urine 0-3 per hpf (0-3); Squamous Epithelial Cell,Urine Many per lpf (None-Few); WBC,Urine 0-3 per hpf (0-3)
[2019-09-22 06:28] LABS: Calcium 8.1 mg/dL (8.6-10.3); Potassium 3.8 mEq/L (3.5-5.1)
[2019-09-22] MEDS: Insulin LISPRO 300 UNITS/3 ML VIAL SQ SCH ×3 (09:07→18:21)
[2019-09-22] MEDS: amLODIPine 5 MG TABLET PO SCH (09:07)
[2019-09-22] MEDS: Famotidine 20 MG TABLET PO SCH (09:07)
[2019-09-22] MEDS ORDERED: Sennosides/Docusate Sodium TABLET PO PRN (13:18)
[2019-09-22] MEDS: Ringers Solution, Lactated 1,000 ML IVC SCH (18:28)
[2019-09-22] MEDS: Insulin DETEMIR 100 UNIT/ML X5UNITS SQ SCH (21:40)
[2019-09-23] MEDS: *HR* Heparin 5,000 UNIT/ML VIAL SQ SCH ×2 (05:27→18:37)
[2019-09-23 05:52] LABS: Calcium 8.3 mg/dL (8.6-10.3)
[2019-09-23 08:14] VITALS: BP 148/88
[2019-09-23] MEDS: Insulin LISPRO 300 UNITS/3 ML VIAL SQ SCH ×3 (08:25→18:37)
[2019-09-23] MEDS: amLODIPine 5 MG TABLET PO SCH (08:47)
[2019-09-23] MEDS: Famotidine 20 MG TABLET PO SCH (08:48)
== END 2019-09-23 19:17 | disposition home health service (06) | DRG 690 ==
LOC: 2NENU 16:55 → EMEROOARM 16:55 → SUATTDRO 19:57 → 2NENU 20:53 → SUATTDRO 09-16 07:10
PROVIDERS: ADMIT Internal Medicine; ATTEND Internal Medicine

== ENCOUNTER 2019-11-25 13:03 | Inpatient (IN) ==
[2019-11-25 13:52] LABS: Prothrombin Time 11.7 Seconds (9.4-12.1)
[2019-11-25 13:54] LABS: Activated Partial Thrombo Time 22.5 Seconds (26.0-36.0)
[2019-11-25 14:03] LABS: BUN/Creatinine Ratio 12 (6-26); Blood Urea Nitrogen 12 mg/dL (8-23); Calcium 8.9 mg/dL (8.6-10.3); Carbon Dioxide 26 mEq/L (23-29); Chloride 109 mEq/L (98-107); Glucose 110 mg/dL (70-105); Osmolality,Calculated 292 (280-300); Potassium 3.7 mEq/L (3.5-5.1); Sodium 141 mEq/L (136-145); eGFR For African Americans > 60 (> 60); eGFR For Non-African Americans 55 (> 60)
[2019-11-25 14:04] LABS: Troponin I < 0.03 ng/mL (< 0.04)
[2019-11-25 14:25] LABS: Hematocrit 34.6 % (35.3-44.9); Hemoglobin 11.2 g/dL (11.5-15.4); Mean Corpuscular HGB Conc 32.4 g/dL (31.6-35.5); Mean Corpuscular Volume 89.6 fL (83.0-100.0); Mean Platelet Volume 10.1 fL (9.4-12.4); Platelet Count 171 K/mcL (140-400); Red Blood Count 3.86 M/mcL (3.82-4.97); Red Cell Distribution Width 14.6 % (11.5-14.5); White Blood Count 6.2 K/mcL (4.3-11.1)
[2019-11-25] MEDS ORDERED: Acetaminophen 650 MG RECTAL SUPP RC ONE (14:25)
[2019-11-25] MEDS ORDERED: Naloxone 0.4 MG/ML INJ IVP PRN (15:18)
[2019-11-25] MEDS ORDERED: Ondansetron 4 MG/2 ML VIAL IVP PRN (15:18)
[2019-11-25 15:55] LABS: Bilirubin,Urine Negative (Negative); Blood,Urine Negative (Negative); Clarity,Urine Clear (Clear); Color,Urine Yellow (Yellow); Glucose,Urine (UA) Normal (Normal); Ketones,Urine Negative (Negative); Leukocyte Esterase,Urine Negative (Negative); Nitrite,Urine Negative (Negative); Protein,Urine >=300 mg/dL (Neg-Trace); Specific Gravity,Urine 1.014 (1.010-1.025); Urobilinogen,Urine Normal (Normal)
[2019-11-25 15:57] LABS: Bacteria,Urine None Seen per hpf (None-Few); Hyaline Casts,Urine None Seen per lpf (None-Few); RBC,Urine 0-3 per hpf (0-3); Squamous Epithelial Cell,Urine Many per lpf (None-Few); WBC,Urine 0-3 per hpf (0-3)
[2019-11-25] MEDS ORDERED: D5% in Water 1,000 ML IVC PRN (16:10)
[2019-11-25] MEDS ORDERED: Dextrose Gel 15 GM/37.5 ML TUBE PO PRN ×2 (16:10)
[2019-11-25] MEDS ORDERED: *HR* Dextrose 50 % in Water (Syg) 50 ML SYRINGE IVP PRN (16:10)
[2019-11-25 17:01] LABS: Estimated Average Glucose 148 mg/dl
[2019-11-25] MEDS: carvediloL 25 MG TABLET PO SCH (21:11)
[2019-11-25] MEDS: hydrALAZINE 25 MG TABLET PO SCH (21:12)
[2019-11-25] MEDS: Insulin LISPRO 300 UNITS/3 ML VIAL SQ SCH (22:59)
[2019-11-26 01:34] LABS: Basophils % 0.3 %; Eosinophils # 0.1 K/mcL (0.0-0.6); Hematocrit 29.9 % (35.3-44.9); Hemoglobin 9.7 g/dL (11.5-15.4); Immature Granulocytes % 0.3 % (0-4); Lymphocytes # 1.5 K/mcL (0.6-4.6); Lymphocytes % 25.6 %; Mean Corpuscular HGB Conc 32.4 g/dL (31.6-35.5); Mean Corpuscular Hemoglobin 28.9 pg (28.0-33.3); Mean Platelet Volume 9.6 fL (9.4-12.4); Monocytes # 0.3 K/mcL (0.0-1.3); Monocytes % 5.2 %; Neutrophils # 3.9 K/mcL (1.6-8.9); Platelet Count 148 K/mcL (140-400); Red Blood Count 3.36 M/mcL (3.82-4.97); Red Cell Distribution Width 14.6 % (11.5-14.5); Segmented Neutrophils % 67.6 %; White Blood Count 5.7 K/mcL (4.3-11.1)
[2019-11-26 01:46] LABS: Calcium 8.4 mg/dL (8.6-10.3); Magnesium 1.6 mg/dL (1.6-2.6); Phosphorous 4.1 mg/dL (2.7-4.5); Potassium 3.7 mEq/L (3.5-5.1)
[2019-11-26] MEDS ORDERED: Famotidine 20 MG TABLET PO SCH (09:00)
[2019-11-26] MEDS: Insulin LISPRO 300 UNITS/3 ML VIAL SQ SCH ×3 (10:27→16:08)
[2019-11-26] MEDS: Cholecalciferol (D-3) 1,000 UNIT (25MCG) TABLET PO SCH (10:47)
[2019-11-26] MEDS: Spironolactone 25 MG TABLET PO SCH (10:48)
[2019-11-26] MEDS: amLODIPine 5 MG TABLET PO SCH (10:48)
[2019-11-26] MEDS: hydrALAZINE 25 MG TABLET PO SCH ×3 (10:48→19:52)
[2019-11-26] MEDS: carvediloL 25 MG TABLET PO SCH ×2 (10:49→17:55)
[2019-11-26] MEDS: Sennosides 8.6 MG TABLET PO SCH (10:53)
[2019-11-26] MEDS ORDERED: Isovue-370 500 ML BOTTLE IVP ONE (11:43)
[2019-11-26] MEDS ORDERED: Acetaminophen 325 MG TABLET PO ONE (12:39)
[2019-11-26] MEDS ORDERED: Acetaminophen 325 MG TABLET PO PRN (16:15)
[2019-11-26] MEDS ORDERED: *HR* OxyCODONE/APAP 5/325 TABLET PO ONE (17:00)
[2019-11-26] MEDS: *HR* Heparin 5,000 UNIT/ML VIAL SQ SCH (17:55)
[2019-11-27 05:12] LABS: Calcium 8.2 mg/dL (8.6-10.3); Chol/HDL Ratio 3.2 (0-4.9); Magnesium 1.7 mg/dL (1.6-2.6); Phosphorous 3.9 mg/dL (2.7-4.5); Potassium 3.8 mEq/L (3.5-5.1)
[2019-11-27 05:41] LABS: Basophils % 0.3 %; Eosinophils # 0.1 K/mcL (0.0-0.6); Eosinophils % 1.3 %; Hematocrit 29.9 % (35.3-44.9); Hemoglobin 9.6 g/dL (11.5-15.4); Immature Granulocytes % 0.3 % (0-4); Lymphocytes # 1.5 K/mcL (0.6-4.6); Mean Corpuscular HGB Conc 32.1 g/dL (31.6-35.5); Mean Corpuscular Hemoglobin 29.1 pg (28.0-33.3); Mean Corpuscular Volume 90.6 fL (83.0-100.0); Mean Platelet Volume 10.5 fL (9.4-12.4); Monocytes # 0.4 K/mcL (0.0-1.3); Monocytes % 5.1 %; Red Cell Distribution Width 14.6 % (11.5-14.5); White Blood Count 6.9 K/mcL (4.3-11.1)
[2019-11-27] MEDS: *HR* Heparin 5,000 UNIT/ML VIAL SQ SCH ×2 (06:16→18:04)
[2019-11-27 06:24] LABS: Mean Platelet Volume 9.5 fL (9.4-12.4)
[2019-11-27] MEDS: Insulin LISPRO 300 UNITS/3 ML VIAL SQ SCH ×3 (08:55→18:02)
[2019-11-27] MEDS: carvediloL 25 MG TABLET PO SCH ×2 (10:57→18:02)
[2019-11-27] MEDS: amLODIPine 5 MG TABLET PO SCH (10:58)
[2019-11-27] MEDS: hydrALAZINE 25 MG TABLET PO SCH ×3 (10:58→20:02)
[2019-11-27] MEDS: Chloraseptic Spray 177 ML BOTTLE MM PRN ×2 (11:03→18:06)
[2019-11-27] MEDS: Cholecalciferol (D-3) 1,000 UNIT (25MCG) TABLET PO SCH (11:03)
[2019-11-27] MEDS: Spironolactone 25 MG TABLET PO SCH (11:04)
[2019-11-27] MEDS: Famotidine 20 MG TABLET PO SCH (11:04)
[2019-11-27 17:57] LABS: Thyroid Stimulating Hormone 48.793 mcIU/mL (0.340-5.600)
[2019-11-27 18:14] LABS: Adenovirus Not Detected (Not Detect); Bordetella Pertussis Not Detected (Not Detect); Chlamydophila pneumoniae Not Detected (Not Detect); Coronavirus 229E Not Detected (Not Detect); Coronavirus HKU1 Not Detected (Not Detect); Coronavirus NL63 Not Detected (Not Detect); Coronavirus OC43 Not Detected (Not Detect); Human Metapneumovirus Not Detected (Not Detect); Human Rhinovirus/Enterovirus DETECTED (Not Detect); Influenza A Subtype 2009 H1 Not Detected (Not Detect); Influenza B Not Detected (Not Detect); Mycoplasma pneumoniae Not Detected (Not Detect); Parainfluenza Virus 1 Not Detected (Not Detect); Parainfluenza Virus 2 Not Detected (Not Detect); Parainfluenza Virus 3 Not Detected (Not Detect); Parainfluenza Virus 4 Not Detected (Not Detect); Respiratory Syncytial Virus Not Detected (Not Detect)
[2019-11-27] MEDS ORDERED: *HR* OxyCODONE/APAP 5/325 TABLET PO PRN (20:15)
[2019-11-28 00:54] LABS: Basophils % 0.2 %; Eosinophils # 0.1 K/mcL (0.0-0.6); Eosinophils % 1.6 %; Immature Granulocytes % 0.2 % (0-4); Lymphocytes # 1.6 K/mcL (0.6-4.6); Lymphocytes % 25.8 %; Mean Corpuscular HGB Conc 32.1 g/dL (31.6-35.5); Mean Corpuscular Hemoglobin 29.7 pg (28.0-33.3); Mean Corpuscular Volume 92.4 fL (83.0-100.0); Monocytes # 0.4 K/mcL (0.0-1.3); Monocytes % 6.4 %; Platelet Count 131 K/mcL (140-400); Red Blood Count 3.03 M/mcL (3.82-4.97); Red Cell Distribution Width 14.5 % (11.5-14.5); Segmented Neutrophils % 65.8 %; White Blood Count 6.1 K/mcL (4.3-11.1)
[2019-11-28 01:13] LABS: Calcium 8.1 mg/dL (8.6-10.3); Magnesium 1.7 mg/dL (1.6-2.6); Phosphorous 3.9 mg/dL (2.7-4.5); Potassium 4.2 mEq/L (3.5-5.1)
[2019-11-28] MEDS: *HR* Heparin 5,000 UNIT/ML VIAL SQ SCH (06:01)
[2019-11-28 07:10] LABS: Basophils % 0.4 %; Eosinophils # 0.1 K/mcL (0.0-0.6); Eosinophils % 1.7 %; Hematocrit 29.7 % (35.3-44.9); Hemoglobin 9.6 g/dL (11.5-15.4); Immature Granulocytes % 0.2 % (0-4); Lymphocytes # 1.8 K/mcL (0.6-4.6); Lymphocytes % 32.6 %; Mean Corpuscular HGB Conc 32.3 g/dL (31.6-35.5); Mean Corpuscular Hemoglobin 28.7 pg (28.0-33.3); Mean Corpuscular Volume 88.9 fL (83.0-100.0); Mean Platelet Volume 9.8 fL (9.4-12.4); Monocytes # 0.3 K/mcL (0.0-1.3); Monocytes % 6.3 %; Neutrophils # 3.2 K/mcL (1.6-8.9); Platelet Count 141 K/mcL (140-400); Red Blood Count 3.34 M/mcL (3.82-4.97); Red Cell Distribution Width 14.5 % (11.5-14.5); Segmented Neutrophils % 58.8 %; White Blood Count 5.4 K/mcL (4.3-11.1)
[2019-11-28] MEDS: Insulin LISPRO 300 UNITS/3 ML VIAL SQ SCH ×2 (07:59→13:42)
[2019-11-28] MEDS ORDERED: Furosemide 40 MG TABLET PO SCH (09:00)
[2019-11-28 09:15] LABS: Calcium 8.2 mg/dL (8.6-10.3); Potassium 4.4 mEq/L (3.5-5.1)
[2019-11-28 11:11] VITALS: BP 153/79
[2019-11-28] MEDS: Cholecalciferol (D-3) 1,000 UNIT (25MCG) TABLET PO SCH (11:51)
[2019-11-28] MEDS: carvediloL 25 MG TABLET PO SCH (11:51)
[2019-11-28] MEDS: amLODIPine 5 MG TABLET PO SCH (11:51)
[2019-11-28] MEDS: Famotidine 20 MG TABLET PO SCH (11:51)
[2019-11-28] MEDS: hydrALAZINE 25 MG TABLET PO SCH (11:51)
[2019-11-28] MEDS: Sennosides 8.6 MG TABLET PO SCH (11:53)
== END 2019-11-28 14:40 | DRG 57 ==
LOC: 3BNU 13:03 → EMEROOARM 13:03 → SUATTDRO 15:40 → 3BNU 17:16
PROVIDERS: ADMIT Student in an Organized Health Care Education/Training Program; ATTEND Internal Medicine

== ENCOUNTER 2020-02-13 13:55 | Inpatient (IN) ==
[2020-02-13] MEDS ORDERED: Isovue-370 500 ML BOTTLE IVP ONE (14:04)
[2020-02-13 14:22] LABS: Hematocrit 26.8 % (35.3-44.9); Hemoglobin 8.1 g/dL (11.5-15.4); Mean Corpuscular HGB Conc 30.2 g/dL (31.6-35.5); Mean Corpuscular Hemoglobin 29.1 pg (28.0-33.3); Mean Corpuscular Volume 96.4 fL (83.0-100.0); Mean Platelet Volume 10.8 fL (9.4-12.4); Platelet Count 163 K/mcL (140-400); Red Blood Count 2.78 M/mcL (3.82-4.97); Red Cell Distribution Width 15.4 % (11.5-14.5); White Blood Count 4.5 K/mcL (4.3-11.1)
[2020-02-13 14:39] LABS: BUN/Creatinine Ratio 25 (6-26); Blood Urea Nitrogen 34 mg/dL (8-23); Calcium 8.4 mg/dL (8.6-10.3); Carbon Dioxide 22 mEq/L (23-29); Chloride 110 mEq/L (98-107); Glucose 104 mg/dL (70-105); Osmolality,Calculated 296 (280-300); Potassium 4.3 mEq/L (3.5-5.1); Sodium 139 mEq/L (136-145); eGFR For African Americans 47 (> 60); eGFR For Non-African Americans 39 (> 60)
[2020-02-13 14:40] LABS: Troponin I < 0.03 ng/mL (< 0.04)
[2020-02-13 14:42] LABS: Prothrombin Time 11.2 Seconds (9.4-12.1)
[2020-02-13 14:44] LABS: Activated Partial Thrombo Time 38.6 Seconds (26.0-36.0)
[2020-02-13] MEDS ORDERED: 0.9 % Sodium Chloride 1,000 ML IV ONE (14:44)
[2020-02-13 14:45] LABS: VBG HCO3 25 mEq/L (21-27); VBG PCO2 41 mmHg (41-51); VBG PO2 125 mmHg (25-50)
[2020-02-13 14:55] LABS: Thyroid Stimulating Hormone 28.887 mcIU/mL (0.340-5.600)
[2020-02-13 14:56] LABS: Triiodothyronine (T3) Free 1.91 pg/mL (2.50-3.90)
[2020-02-13] MEDS ORDERED: Naloxone 0.4 MG/ML INJ IVP PRN (16:26)
[2020-02-13] MEDS ORDERED: Ondansetron 4 MG/2 ML VIAL IVP PRN (16:26)
[2020-02-13] MEDS ORDERED: Artificial Tears SOLN 15 ML BOTTLE BOTH EYES PRN (16:29)
[2020-02-13] MEDS ORDERED: Bisacodyl 10 MG RECTAL SUPPOSITORY RC PRN (16:29)
[2020-02-13] MEDS ORDERED: Saline Nasal Spray 44 ML BOTTLE NS PRN (16:29)
[2020-02-13] MEDS ORDERED: D5% in Water 1,000 ML IVC PRN (16:32)
[2020-02-13] MEDS ORDERED: Dextrose Gel 15 GM/37.5 ML TUBE PO PRN ×2 (16:32)
[2020-02-13] MEDS ORDERED: *HR* Dextrose 50 % in Water (Syg) 50 ML SYRINGE IVP PRN (16:32)
[2020-02-13] MEDS: Insulin LISPRO 300 UNITS/3 ML VIAL SQ SCH (19:40)
[2020-02-13] MEDS: Pregabalin 75 MG CAPSULE PO SCH (20:27)
[2020-02-13] MEDS: polyethylene glycoL 3350 17 GM POWD.PACK PO SCH (20:28)
[2020-02-13] MEDS: RESTASIS OP SCH (20:28)
[2020-02-13] MEDS: *HR* Heparin 5,000 UNIT/ML VIAL SQ SCH (20:38)
[2020-02-13] MEDS: Insulin DETEMIR 100 UNIT/ML X5UNITS SQ SCH (20:44)
[2020-02-14 02:13] LABS: Basophils % 0.5 %; Eosinophils # 0.1 K/mcL (0.0-0.6); Eosinophils % 3.5 %; Hematocrit 24.7 % (35.3-44.9); Hemoglobin 7.4 g/dL (11.5-15.4); Immature Granulocytes % 0.2 % (0-4); Lymphocytes # 1.4 K/mcL (0.6-4.6); Lymphocytes % 35.1 %; Mean Corpuscular Hemoglobin 28.9 pg (28.0-33.3); Mean Corpuscular Volume 96.5 fL (83.0-100.0); Mean Platelet Volume 11.4 fL (9.4-12.4); Monocytes # 0.3 K/mcL (0.0-1.3); Monocytes % 6.2 %; Neutrophils # 2.2 K/mcL (1.6-8.9); Platelet Count 160 K/mcL (140-400); Red Blood Count 2.56 M/mcL (3.82-4.97); Red Cell Distribution Width 15.5 % (11.5-14.5); Segmented Neutrophils % 54.5 %
[2020-02-14 02:16] LABS: INR 1.1; Prothrombin Time 12.2 Seconds (9.4-12.1)
[2020-02-14 02:35] LABS: Calcium 8.5 mg/dL (8.6-10.3); Magnesium 1.8 mg/dL (1.6-2.6)
[2020-02-14] MEDS: Insulin LISPRO 300 UNITS/3 ML VIAL SQ SCH ×5 (03:35→22:11)
[2020-02-14] MEDS: *HR* Heparin 5,000 UNIT/ML VIAL SQ SCH ×3 (05:07→22:13)
[2020-02-14] MEDS ORDERED: Insulin LISPRO 300 UNITS/3 ML VIAL SQ SCH (07:30)
[2020-02-14] MEDS: polyethylene glycoL 3350 17 GM POWD.PACK PO SCH ×2 (10:20→22:13)
[2020-02-14] MEDS: Pregabalin 75 MG CAPSULE PO SCH ×2 (10:21→22:12)
[2020-02-14] MEDS: Isosorbide MONOnitrate (24 HR) 30 MG TAB.ER.24H PO SCH (10:21)
[2020-02-14] MEDS: hydrALAZINE 25 MG TABLET PO SCH ×4 (10:21→22:11)
[2020-02-14] MEDS: Loratadine 10 MG TABLET PO SCH (10:21)
[2020-02-14] MEDS: BuPROPion XL (24 HR) 150 MG TABLET PO SCH (10:22)
[2020-02-14] MEDS: Fluticasone Propionate Nasal 50 MCG/SPRAY BOTTLE NS SCH (10:23)
[2020-02-14] MEDS: RESTASIS OP SCH ×2 (10:24→22:13)
[2020-02-14] MEDS: *HR* OxyCODONE Immed Rel 5 MG TABLET PO PRN (16:09)
[2020-02-14] MEDS: 0.9 % Sodium Chloride 1,000 ML IVC SCH (16:15)
[2020-02-14] MEDS: Insulin DETEMIR 100 UNIT/ML X5UNITS SQ SCH (22:12)
[2020-02-15 04:48] LABS: Basophils % 0.4 %; Eosinophils # 0.1 K/mcL (0.0-0.6); Eosinophils % 2.6 %; Hematocrit 25.7 % (35.3-44.9); Hemoglobin 7.7 g/dL (11.5-15.4); Immature Granulocytes % 0.2 % (0-4); Lymphocytes # 2.4 K/mcL (0.6-4.6); Lymphocytes % 44.7 %; Mean Corpuscular Hemoglobin 28.6 pg (28.0-33.3); Mean Corpuscular Volume 95.5 fL (83.0-100.0); Mean Platelet Volume 11.3 fL (9.4-12.4); Monocytes # 0.3 K/mcL (0.0-1.3); Monocytes % 6.4 %; Neutrophils # 2.4 K/mcL (1.6-8.9); Platelet Count 174 K/mcL (140-400); Red Blood Count 2.69 M/mcL (3.82-4.97); Red Cell Distribution Width 15.4 % (11.5-14.5); Segmented Neutrophils % 45.7 %; White Blood Count 5.3 K/mcL (4.3-11.1)
[2020-02-15 05:05] LABS: Calcium 8.6 mg/dL (8.6-10.3); Potassium 4.5 mEq/L (3.5-5.1)
[2020-02-15] MEDS: *HR* Heparin 5,000 UNIT/ML VIAL SQ SCH ×3 (06:15→22:47)
[2020-02-15] MEDS: hydrALAZINE 25 MG TABLET PO SCH ×3 (08:17→22:38)
[2020-02-15] MEDS: polyethylene glycoL 3350 17 GM POWD.PACK PO SCH ×2 (08:17→22:45)
[2020-02-15] MEDS: BuPROPion XL (24 HR) 150 MG TABLET PO SCH (08:17)
[2020-02-15] MEDS: Insulin LISPRO 300 UNITS/3 ML VIAL SQ SCH ×4 (08:18→22:47)
[2020-02-15] MEDS: Loratadine 10 MG TABLET PO SCH (08:18)
[2020-02-15] MEDS: Pregabalin 75 MG CAPSULE PO SCH ×2 (08:18→22:46)
[2020-02-15] MEDS: Isosorbide MONOnitrate (24 HR) 30 MG TAB.ER.24H PO SCH (08:18)
[2020-02-15] MEDS: Fluticasone Propionate Nasal 50 MCG/SPRAY BOTTLE NS SCH (08:19)
[2020-02-15] MEDS: RESTASIS OP SCH ×2 (08:20→22:47)
[2020-02-15] MEDS: 0.9 % Sodium Chloride 1,000 ML IVC SCH (09:14)
[2020-02-15] MEDS: Acetaminophen 325 MG TABLET PO PRN (09:16)
[2020-02-15] MEDS: *HR* OxyCODONE Immed Rel 5 MG TABLET PO PRN (13:51)
[2020-02-15] MEDS: Insulin DETEMIR 100 UNIT/ML X5UNITS SQ SCH (22:46)
[2020-02-16] MEDS: 0.9 % Sodium Chloride 1,000 ML IVC SCH (01:34)
[2020-02-16] MEDS: *HR* Heparin 5,000 UNIT/ML VIAL SQ SCH (05:37)
[2020-02-16 06:05] LABS: Basophils % 0.5 %; Eosinophils # 0.1 K/mcL (0.0-0.6); Eosinophils % 2.7 %; Hematocrit 25.3 % (35.3-44.9); Hemoglobin 7.6 g/dL (11.5-15.4); Immature Granulocytes % 0.2 % (0-4); Lymphocytes # 1.9 K/mcL (0.6-4.6); Lymphocytes % 43.1 %; Mean Corpuscular Hemoglobin 28.9 pg (28.0-33.3); Mean Corpuscular Volume 96.2 fL (83.0-100.0); Monocytes # 0.4 K/mcL (0.0-1.3); Monocytes % 7.9 %; Platelet Count 162 K/mcL (140-400); Red Blood Count 2.63 M/mcL (3.82-4.97); Red Cell Distribution Width 15.6 % (11.5-14.5); Segmented Neutrophils % 45.6 %; White Blood Count 4.4 K/mcL (4.3-11.1)
[2020-02-16 06:17] LABS: Calcium 8.3 mg/dL (8.6-10.3); Potassium 4.4 mEq/L (3.5-5.1)
[2020-02-16] MEDS: BuPROPion XL (24 HR) 150 MG TABLET PO SCH (09:46)
[2020-02-16] MEDS: hydrALAZINE 25 MG TABLET PO SCH (09:48)
[2020-02-16] MEDS: Pregabalin 75 MG CAPSULE PO SCH (09:52)
[2020-02-16] MEDS: Loratadine 10 MG TABLET PO SCH (09:53)
[2020-02-16] MEDS: Acetaminophen 325 MG TABLET PO PRN (09:53)
[2020-02-16] MEDS: Isosorbide MONOnitrate (24 HR) 30 MG TAB.ER.24H PO SCH (09:53)
[2020-02-16] MEDS: polyethylene glycoL 3350 17 GM POWD.PACK PO SCH (09:55)
[2020-02-16] MEDS: Insulin LISPRO 300 UNITS/3 ML VIAL SQ SCH ×2 (10:07→11:24)
[2020-02-16] MEDS: RESTASIS OP SCH (10:08)
[2020-02-16] MEDS: Fluticasone Propionate Nasal 50 MCG/SPRAY BOTTLE NS SCH (10:11)
[2020-02-16 11:05] VITALS: BP 155/73
== END 2020-02-16 12:03 | DRG 68 ==
LOC: EMEROOARM 13:55 → 3BNU 13:55 → SUATTDRO 16:50 → 3BNU 17:47
PROVIDERS: ADMIT Student in an Organized Health Care Education/Training Program; ATTEND Family Medicine

== ENCOUNTER 2020-02-28 21:23 | Inpatient (IN) ==
[2020-02-28 22:08] LABS: Bilirubin,Urine Negative (Negative); Blood,Urine Negative (Negative); Clarity,Urine Cloudy (Clear); Color,Urine Yellow (Yellow); Glucose,Urine (UA) Normal (Normal); Ketones,Urine Negative (Negative); Leukocyte Esterase,Urine Trace (Negative); Nitrite,Urine Positive (Negative); Protein,Urine 30 mg/dL (Neg-Trace); Urobilinogen,Urine Normal (Normal)
[2020-02-28 22:11] LABS: Bacteria,Urine None Seen per hpf (None-Few); Hyaline Casts,Urine None Seen per lpf (None-Few); RBC,Urine 0-3 per hpf (0-3); Squamous Epithelial Cell,Urine Few per lpf (None-Few); WBC,Urine 0-3 per hpf (0-3)
[2020-02-29 00:16] LABS: Hematocrit 28.1 % (35.3-44.9); Hemoglobin 8.7 g/dL (11.5-15.4); Mean Corpuscular Hemoglobin 29.6 pg (28.0-33.3); Mean Corpuscular Volume 95.6 fL (83.0-100.0); Mean Platelet Volume 11.2 fL (9.4-12.4); Platelet Count 183 K/mcL (140-400); Red Blood Count 2.94 M/mcL (3.82-4.97); Red Cell Distribution Width 15.5 % (11.5-14.5); White Blood Count 4.9 K/mcL (4.3-11.1)
[2020-02-29 00:22] LABS: BUN/Creatinine Ratio 26 (6-26); Blood Urea Nitrogen 36 mg/dL (8-23); Calcium 8.7 mg/dL (8.6-10.3); Carbon Dioxide 25 mEq/L (23-29); Chloride 108 mEq/L (98-107); Glucose 60 mg/dL (70-105); Osmolality,Calculated 294 (280-300); Potassium 4.2 mEq/L (3.5-5.1); Sodium 139 mEq/L (136-145); Troponin I < 0.03 ng/mL (< 0.04); eGFR For African Americans 46 (> 60); eGFR For Non-African Americans 38 (> 60)
[2020-02-29 00:28] LABS: Prothrombin Time 11.5 Seconds (9.4-12.1)
[2020-02-29 00:31] LABS: Activated Partial Thrombo Time 39.6 Seconds (26.0-36.0)
[2020-02-29] MEDS ORDERED: *HR* Dextrose 50 % in Water (Syg) 50 ML SYRINGE IVP ONE (00:51)
[2020-02-29] MEDS ORDERED: *HR* Dextrose 50 % in Water (Syg) 50 ML SYRINGE ONE (00:53)
[2020-02-29] MEDS ORDERED: Naloxone 0.4 MG/ML INJ IVP PRN (01:29)
[2020-02-29] MEDS ORDERED: Dextrose Gel 15 GM/37.5 ML TUBE PO PRN ×2 (01:42)
[2020-02-29] MEDS ORDERED: *HR* Dextrose 50 % in Water (Syg) 50 ML SYRINGE IVP PRN (01:42)
[2020-02-29] MEDS ORDERED: D5% in Water 1,000 ML IVC PRN (01:42)
[2020-02-29] MEDS: D5% in 0.9% NACL 1,000 ML IVC SCH ×2 (02:30→09:53)
[2020-02-29] MEDS: cefTRIAXone 1,000 MG in Water for inj. (sterile) 10 ML IVPB SCH (02:31)
[2020-02-29] MEDS ORDERED: Artificial Tears SOLN 15 ML BOTTLE OP PRN (05:19)
[2020-02-29] MEDS ORDERED: tiZANidine 4 MG TABLET PO PRN (05:19)
[2020-02-29] MEDS ORDERED: GuaiFENesin Liq 200 MG/10 ML UDC PO PRN (05:19)
[2020-02-29] MEDS ORDERED: NON-FORMULARY MEDICATION 1 EACH EACH (Carboxymethylcellulose Sodium [Refresh Tears] 1 DROP OP PRN (05:19)
[2020-02-29] MEDS ORDERED: Methyl Salicylate/Menthol 57 APPL/57 GM TUBE TP PRN (05:19)
[2020-02-29] MEDS ORDERED: Saline Nasal Spray 44 ML BOTTLE NS PRN (05:19)
[2020-02-29] MEDS ORDERED: Bisacodyl 10 MG RECTAL SUPPOSITORY RC PRN (05:19)
[2020-02-29] MEDS: Insulin LISPRO 300 UNITS/3 ML VIAL SQ SCH ×3 (06:03→16:26)
[2020-02-29] MEDS: Vancomycin Oral Soln 125 MG/2.5 ML UDC PO SCH ×3 (06:13→17:49)
[2020-02-29 06:51] LABS: Hematocrit 27.8 % (35.3-44.9); Hemoglobin 8.6 g/dL (11.5-15.4); Mean Corpuscular HGB Conc 30.9 g/dL (31.6-35.5); Mean Corpuscular Hemoglobin 29.5 pg (28.0-33.3); Mean Corpuscular Volume 95.2 fL (83.0-100.0); Mean Platelet Volume 11.2 fL (9.4-12.4); Platelet Count 190 K/mcL (140-400); Red Blood Count 2.92 M/mcL (3.82-4.97); Red Cell Distribution Width 15.5 % (11.5-14.5); White Blood Count 4.8 K/mcL (4.3-11.1)
[2020-02-29 07:07] LABS: Calcium 8.7 mg/dL (8.6-10.3); Potassium 3.9 mEq/L (3.5-5.1)
[2020-02-29] MEDS: Isosorbide MONOnitrate (24 HR) 30 MG TAB.ER.24H PO SCH (08:20)
[2020-02-29] MEDS: Loratadine 10 MG TABLET PO SCH (08:20)
[2020-02-29] MEDS: Multivit/Ca/Min/Fe/FA 1 TAB TABLET PO SCH (08:20)
[2020-02-29] MEDS: Pregabalin 75 MG CAPSULE PO SCH ×3 (08:21→21:19)
[2020-02-29] MEDS: polyethylene glycoL 3350 17 GM POWD.PACK PO SCH ×2 (08:21→21:20)
[2020-02-29] MEDS: Fluticasone Propionate Nasal 50 MCG/SPRAY BOTTLE NS SCH (08:21)
[2020-02-29] MEDS: hydrALAZINE 25 MG TABLET PO SCH ×3 (08:21→21:18)
[2020-02-29] MEDS: BuPROPion XL (24 HR) 150 MG TABLET PO SCH (08:21)
[2020-02-29] MEDS: CYCLOSPORINE OP SCH ×2 (08:21→21:19)
[2020-02-29] MEDS ORDERED: Sennosides/Docusate Sodium TABLET PO SCH (09:00)
[2020-02-29] MEDS ORDERED: PROPYLENE GLYCOL OP SCH (09:00)
[2020-02-29] MEDS: *HR* Heparin 5,000 UNIT/ML VIAL SQ SCH ×3 (10:59→21:20)
[2020-02-29] MEDS ORDERED: Furosemide 20 MG/2 ML VIAL IVP ONE (11:15)
[2020-02-29] MEDS: *HR* OxyCODONE Immed Rel 5 MG TABLET PO PRN (22:59)
[2020-03-01] MEDS: Vancomycin Oral Soln 125 MG/2.5 ML UDC PO SCH ×2 (00:38→05:49)
[2020-03-01 01:17] LABS: Basophils % 0.4 %; Eosinophils # 0.1 K/mcL (0.0-0.6); Eosinophils % 2.1 %; Hematocrit 25.8 % (35.3-44.9); Hemoglobin 7.8 g/dL (11.5-15.4); Immature Granulocytes % 0.2 % (0-4); Lymphocytes % 41.4 %; Mean Corpuscular HGB Conc 30.2 g/dL (31.6-35.5); Mean Corpuscular Hemoglobin 28.6 pg (28.0-33.3); Mean Corpuscular Volume 94.5 fL (83.0-100.0); Mean Platelet Volume 11.3 fL (9.4-12.4); Monocytes # 0.3 K/mcL (0.0-1.3); Monocytes % 6.3 %; Neutrophils # 2.4 K/mcL (1.6-8.9); Platelet Count 192 K/mcL (140-400); Red Blood Count 2.73 M/mcL (3.82-4.97); Red Cell Distribution Width 15.6 % (11.5-14.5); Segmented Neutrophils % 49.6 %; White Blood Count 4.8 K/mcL (4.3-11.1)
[2020-03-01 01:35] LABS: Calcium 8.3 mg/dL (8.6-10.3); Potassium 4.3 mEq/L (3.5-5.1)
[2020-03-01] MEDS: cefTRIAXone 1,000 MG in Water for inj. (sterile) 10 ML IVPB SCH (03:12)
[2020-03-01] MEDS: *HR* Heparin 5,000 UNIT/ML VIAL SQ SCH (05:49)
[2020-03-01] MEDS: Loratadine 10 MG TABLET PO SCH (09:17)
[2020-03-01] MEDS: Multivit/Ca/Min/Fe/FA 1 TAB TABLET PO SCH (09:17)
[2020-03-01] MEDS: Pregabalin 75 MG CAPSULE PO SCH ×3 (09:18→22:21)
[2020-03-01] MEDS: BuPROPion XL (24 HR) 150 MG TABLET PO SCH (09:18)
[2020-03-01] MEDS: Isosorbide MONOnitrate (24 HR) 30 MG TAB.ER.24H PO SCH (09:18)
[2020-03-01] MEDS: CYCLOSPORINE OP SCH (09:19)
[2020-03-01] MEDS: hydrALAZINE 25 MG TABLET PO SCH ×3 (09:19→22:20)
[2020-03-01] MEDS: polyethylene glycoL 3350 17 GM POWD.PACK PO SCH ×2 (09:20→22:20)
[2020-03-01] MEDS: Fluticasone Propionate Nasal 50 MCG/SPRAY BOTTLE NS SCH (09:20)
[2020-03-01] MEDS: Insulin LISPRO 300 UNITS/3 ML VIAL SQ SCH ×2 (11:57→18:37)
[2020-03-01] MEDS: *HR* OxyCODONE Immed Rel 5 MG TABLET PO PRN (11:59)
[2020-03-02 03:13] LABS: Basophils % 0.6 %; Eosinophils # 0.1 K/mcL (0.0-0.6); Eosinophils % 1.9 %; Hematocrit 24.7 % (35.3-44.9); Hemoglobin 7.8 g/dL (11.5-15.4); Immature Granulocytes % 0.2 % (0-4); Lymphocytes # 2.1 K/mcL (0.6-4.6); Lymphocytes % 39.5 %; Mean Corpuscular HGB Conc 31.6 g/dL (31.6-35.5); Mean Corpuscular Hemoglobin 29.8 pg (28.0-33.3); Mean Corpuscular Volume 94.3 fL (83.0-100.0); Mean Platelet Volume 11.7 fL (9.4-12.4); Monocytes # 0.4 K/mcL (0.0-1.3); Monocytes % 7.2 %; Neutrophils # 2.7 K/mcL (1.6-8.9); Platelet Count 162 K/mcL (140-400); Red Blood Count 2.62 M/mcL (3.82-4.97); Red Cell Distribution Width 15.4 % (11.5-14.5); Segmented Neutrophils % 50.6 %; White Blood Count 5.3 K/mcL (4.3-11.1)
[2020-03-02 03:21] LABS: Calcium 8.4 mg/dL (8.6-10.3); Potassium 4.8 mEq/L (3.5-5.1)
[2020-03-02] MEDS: cefTRIAXone 1,000 MG in Water for inj. (sterile) 10 ML IVPB SCH (04:05)
[2020-03-02] MEDS: Insulin LISPRO 300 UNITS/3 ML VIAL SQ SCH ×3 (07:30→15:53)
[2020-03-02] MEDS: Fluticasone Propionate Nasal 50 MCG/SPRAY BOTTLE NS SCH (11:08)
[2020-03-02] MEDS: polyethylene glycoL 3350 17 GM POWD.PACK PO SCH ×2 (11:18→20:45)
[2020-03-02] MEDS: hydrALAZINE 25 MG TABLET PO SCH ×3 (11:18→20:45)
[2020-03-02] MEDS: Isosorbide MONOnitrate (24 HR) 30 MG TAB.ER.24H PO SCH (11:18)
[2020-03-02] MEDS: Loratadine 10 MG TABLET PO SCH (11:18)
[2020-03-02] MEDS: BuPROPion XL (24 HR) 150 MG TABLET PO SCH (11:18)
[2020-03-02] MEDS: Multivit/Ca/Min/Fe/FA 1 TAB TABLET PO SCH (11:18)
[2020-03-02] MEDS: Pregabalin 75 MG CAPSULE PO SCH ×3 (11:19→20:44)
[2020-03-02] MEDS ORDERED: Furosemide 20 MG/2 ML VIAL IVP ONE ×2 (11:46→16:23)
[2020-03-03] MEDS: cefTRIAXone 1,000 MG in Water for inj. (sterile) 10 ML IVPB SCH (04:03)
[2020-03-03] MEDS: Insulin LISPRO 300 UNITS/3 ML VIAL SQ SCH ×2 (07:40→10:55)
[2020-03-03] MEDS: Multivit/Ca/Min/Fe/FA 1 TAB TABLET PO SCH (07:46)
[2020-03-03] MEDS: hydrALAZINE 25 MG TABLET PO SCH (07:47)
[2020-03-03] MEDS: Loratadine 10 MG TABLET PO SCH (07:48)
[2020-03-03] MEDS: Isosorbide MONOnitrate (24 HR) 30 MG TAB.ER.24H PO SCH (07:49)
[2020-03-03] MEDS: BuPROPion XL (24 HR) 150 MG TABLET PO SCH (07:49)
[2020-03-03] MEDS: Pregabalin 75 MG CAPSULE PO SCH (07:50)
[2020-03-03] MEDS: polyethylene glycoL 3350 17 GM POWD.PACK PO SCH (07:54)
[2020-03-03] MEDS: Fluticasone Propionate Nasal 50 MCG/SPRAY BOTTLE NS SCH (07:55)
[2020-03-03 09:46] LABS: Basophils % 0.2 %; Eosinophils # 0.1 K/mcL (0.0-0.6); Eosinophils % 2.3 %; Hematocrit 26.7 % (35.3-44.9); Hemoglobin 8.1 g/dL (11.5-15.4); Immature Granulocytes % 0.2 % (0-4); Lymphocytes # 1.6 K/mcL (0.6-4.6); Lymphocytes % 37.5 %; Mean Corpuscular HGB Conc 30.3 g/dL (31.6-35.5); Mean Corpuscular Hemoglobin 29.5 pg (28.0-33.3); Mean Corpuscular Volume 97.1 fL (83.0-100.0); Mean Platelet Volume 11.1 fL (9.4-12.4); Monocytes # 0.3 K/mcL (0.0-1.3); Monocytes % 5.8 %; Neutrophils # 2.3 K/mcL (1.6-8.9); Platelet Count 161 K/mcL (140-400); Red Blood Count 2.75 M/mcL (3.82-4.97); Red Cell Distribution Width 15.2 % (11.5-14.5); White Blood Count 4.3 K/mcL (4.3-11.1)
[2020-03-03 10:06] LABS: Calcium 8.5 mg/dL (8.6-10.3); Potassium 4.1 mEq/L (3.5-5.1)
[2020-03-03 10:53] VITALS: BP 143/66
== END 2020-03-03 13:01 | disposition home or self-care (01) | DRG 637 ==
LOC: 3BNU 21:23 → EMEROOARM 21:23 → 3BNU 02-29 01:48
PROVIDERS: ADMIT Internal Medicine; ATTEND Internal Medicine

== ENCOUNTER 2021-10-29 19:19 | Inpatient (IN) ==
[2021-10-29 20:48] LABS: Basophils % 0.3 %; Eosinophils # 0.2 K/mcL (0.0-0.6); Hemoglobin 8.5 g/dL (11.5-15.4); Immature Granulocytes % 0.3 % (0-4); Lymphocytes # 1.4 K/mcL (0.6-4.6); Lymphocytes % 15.3 %; Mean Corpuscular HGB Conc 30.4 g/dL (31.6-35.5); Mean Corpuscular Hemoglobin 27.3 pg (28.0-33.3); Mean Platelet Volume 10.5 fL (9.4-12.4); Monocytes # 0.5 K/mcL (0.0-1.3); Monocytes % 4.8 %; Neutrophils # 7.3 K/mcL (1.6-8.9); Platelet Count 207 K/mcL (140-400); Red Blood Count 3.11 M/mcL (3.82-4.97); Red Cell Distribution Width 15.9 % (11.5-14.5); Segmented Neutrophils % 77.3 %; White Blood Count 9.4 K/mcL (4.3-11.1)
[2021-10-29 20:56] LABS: INR 1.1; Prothrombin Time 12.4 Seconds (9.4-12.1)
[2021-10-29 20:59] LABS: Activated Partial Thrombo Time 28.5 Seconds (26.0-36.0)
[2021-10-29 21:05] LABS: Alanine Aminotransferase 21 Units/L (7-52); Albumin 3.5 g/dL (3.5-5.7); Albumin/Globulin Ratio 1.1 (1.1-2.2); Alkaline Phosphatase 73 Units/L (34-104); Aspartate Amino Transferase 18 Units/L (13-39); BUN/Creatinine Ratio 18 (6-26); Bilirubin,Indirect 0.3 mg/dL (0.0-1.0); Bilirubin,Total 0.3 mg/dL (0.3-1.0); Blood Urea Nitrogen 35 mg/dL (8-23); Calcium 8.5 mg/dL (8.6-10.3); Carbon Dioxide 20 mEq/L (23-29); Chloride 111 mEq/L (98-107); Ethanol < 10 mg/dL (Less than 10); Globulin 3.3 g/dL (2.4-3.5); Glucose 195 mg/dL (70-105); Osmolality,Calculated 305 (280-300); Potassium 4.3 mEq/L (3.5-5.1); Sodium 141 mEq/L (136-145); Total Protein 6.8 g/dL (6.4-8.9); Troponin I < 0.03 ng/mL (< 0.04); eGFR For African Americans 32 (> 60); eGFR For Non-African Americans 26 (> 60)
[2021-10-29] MEDS ORDERED: Naloxone 0.4 MG/ML INJ IVP ONE (22:42)
[2021-10-29 22:49] LABS: Bacteria,Urine Few per hpf (None-Few); Bilirubin,Urine Negative (Negative); Blood,Urine Moderate (Negative); Clarity,Urine Turbid (Clear); Color,Urine Yellow (Yellow); Glucose,Urine (UA) Normal (Normal); Hyaline Casts,Urine Moderate per lpf (None Seen); Ketones,Urine Negative (Negative); Leukocyte Esterase,Urine Large (Negative); Mucus,Urine Few per lpf (None-Few); Nitrite,Urine Negative (Negative); Protein,Urine 100 mg/dL (Neg-Trace); RBC,Urine 30-50 per hpf (0-3); Specific Gravity,Urine 1.018 (1.010-1.025); Squamous Epithelial Cell,Urine Few per hpf (None-Few); Urobilinogen,Urine Normal (Normal); WBC,Urine 50-100 per hpf (0-3)
[2021-10-29] MEDS ORDERED: levoFLOXacin 750 MG/150 ML 750 MG/150 ML BAG IVPB ONE (22:50)
[2021-10-29 22:54] LABS: Amphetamine Screen,Urine Negative ng/mL (Cutoff=1000); Barbiturate Screen,Urine Negative ng/mL (Cutoff=200); Benzodiazepines Screen,Urine Negative ng/mL (Cutoff=200); Cannabinoid Screen,Urine Negative ng/mL (Cutoff = 50); Cocaine Screen,Urine Negative ng/mL (Cutoff= 300); Opiate Screen,Urine Negative ng/mL (Cutoff=300); Phencyclidine Screen,Urine Negative ng/mL (Cutoff=25)
[2021-10-30] MEDS ORDERED: Ondansetron 4 MG/2 ML VIAL IVP PRN (00:13)
[2021-10-30] MEDS ORDERED: Naloxone 0.4 MG/ML INJ IVP PRN (00:13)
[2021-10-30] MEDS ORDERED: Perflutren Lipid Microsphere 1.3 ML in 0.9 % Sodium Chloride 8.7 ML IVP PRN (00:32)
[2021-10-30 00:39] LABS: Influenza A PCR Negative (Negative); Influenza B PCR Negative (Negative); Resp. Syncytial Virus PCR Negative (Negative); SARS-CoV-2 by PCR (In House) Negative (Negative)
[2021-10-30] MEDS: 0.9 % Sodium Chloride 1,000 ML IVC SCH ×2 (03:12→12:52)
[2021-10-30 03:53] LABS: INR 1.2
[2021-10-30 04:14] LABS: Alanine Aminotransferase 20 Units/L (7-52); Albumin 3.3 g/dL (3.5-5.7); Albumin/Globulin Ratio 1.1 (1.1-2.2); Alkaline Phosphatase 68 Units/L (34-104); Aspartate Amino Transferase 14 Units/L (13-39); BUN/Creatinine Ratio 21 (6-26); Bilirubin,Total 0.3 mg/dL (0.3-1.0); Blood Urea Nitrogen 33 mg/dL (8-23); Calcium 8.4 mg/dL (8.6-10.3); Carbon Dioxide 20 mEq/L (23-29); Chloride 113 mEq/L (98-107); Chol/HDL Ratio 3.6 (0-4.9); Cholesterol 137 mg/dL (< 200); Globulin 3.1 g/dL (2.4-3.5); Glucose 128 mg/dL (70-105); HDL Cholesterol 38 mg/dL (40-59); LDL Cholesterol,Calculated 86 mg/dL (< 100); Osmolality,Calculated 303 (280-300); Sodium 142 mEq/L (136-145); Total Protein 6.4 g/dL (6.4-8.9); Triglycerides 64 mg/dL (< 150); Troponin I < 0.03 ng/mL (< 0.04); eGFR For African Americans 39 (> 60); eGFR For Non-African Americans 32 (> 60)
[2021-10-30 04:21] LABS: Thyroid Stimulating Hormone 0.016 mcIU/mL (0.340-5.600)
[2021-10-30 04:31] LABS: Folate 20.9 ng/mL (3.0-16.0)
[2021-10-30] MEDS ORDERED: Dextrose Gel 15 GM/37.5 ML TUBE PO PRN ×2 (10:43)
[2021-10-30] MEDS ORDERED: D5% in Water 1,000 ML IVC PRN (10:43)
[2021-10-30] MEDS ORDERED: *HR* Dextrose 50 % in Water (Syg) 50 ML SYRINGE IVP PRN (10:43)
[2021-10-30] MEDS ORDERED: *HR* Metoprolol 5 MG/5 ML VIAL IVP PRN (10:43)
[2021-10-30] MEDS: Insulin LISPRO 300 UNITS/3 ML VIAL SUBQ SCH ×3 (12:00→21:16)
[2021-10-30 13:17] LABS: Estimated Average Glucose 154 mg/dl
[2021-10-30] MEDS: *HR* Heparin 5,000 UNIT/ML VIAL SQ SCH (17:26)
[2021-10-31 01:22] LABS: Acinetobacter baumannii by PCR Not Detected (Not Detect); Candida albicans by PCR Not Detected (Not Detect); Candida glabrata by PCR Not Detected (Not Detect); Candida krusei by PCR Not Detected (Not Detect); Candida parapsilosis by PCR Not Detected (Not Detect); Candida tropicalis by PCR Not Detected (Not Detect); Enterobacter cloacae Cmplx PCR Not Detected (Not Detect); Enterobacteriaceae by PCR Not Detected (Not Detect); Enterococcus by PCR Not Detected (Not Detect); Escherichia coli by PCR Not Detected (Not Detect); Klebsiella oxytoca by PCR Not Detected (Not Detect); Klebsiella pneumoniae by PCR Not Detected (Not Detect); Proteus by PCR Not Detected (Not Detect); Pseudomonas aeruginosa by PCR Not Detected (Not Detect); Serratia marcescens by PCR Not Detected (Not Detect); Staphylococcus aureus by PCR Not Detected (Not Detect); Staphylococcus by PCR DETECTED (Not Detect); Streptococcus agalactiae(B)PCR Not Detected (Not Detect); Streptococcus by PCR Not Detected (Not Detect); Streptococcus pneumoniae PCR Not Detected (Not Detect); Streptococcus pyogenes (A) PCR Not Detected (Not Detect); blaKPC Carbapenem-Resist Gene Not Detected (Not Detect); mecA Methicillin-Resist Gene DETECTED (Not Detect); vanA/B Vancomycin-Resist Genes Not Detected (Not Detect)
[2021-10-31] MEDS: *HR* Heparin 5,000 UNIT/ML VIAL SQ SCH ×2 (06:10→16:56)
[2021-10-31] MEDS: Insulin LISPRO 300 UNITS/3 ML VIAL SUBQ SCH ×4 (07:36→21:40)
[2021-10-31] MEDS ORDERED: levoFLOXacin 750 MG/150 ML 750 MG/150 ML BAG IVPB SCH (21:00)
[2021-11-01] MEDS: *HR* Heparin 5,000 UNIT/ML VIAL SQ SCH (06:23)
[2021-11-01] MEDS: Insulin LISPRO 300 UNITS/3 ML VIAL SUBQ SCH ×2 (08:19→12:36)
[2021-11-01] MEDS ORDERED: Furosemide 20 MG TABLET PO SCH (09:00)
[2021-11-01] MEDS ORDERED: amLODIPine 5 MG TABLET PO SCH (09:00)
[2021-11-01] MEDS ORDERED: Isosorbide MONOnitrate (24 HR) 30 MG TAB.ER.24H PO SCH (09:00)
[2021-11-01 11:55] LABS: Adenovirus Not Detected (Not Detect); Bordetella Pertussis Not Detected (Not Detect); Chlamydophila pneumoniae Not Detected (Not Detect); Coronavirus 229E Not Detected (Not Detect); Coronavirus HKU1 Not Detected (Not Detect); Coronavirus NL63 Not Detected (Not Detect); Coronavirus OC43 Not Detected (Not Detect); Human Metapneumovirus Not Detected (Not Detect); Human Rhinovirus/Enterovirus Not Detected (Not Detect); Influenza A Subtype 2009 H1 Not Detected (Not Detect); Influenza B Not Detected (Not Detect); Mycoplasma pneumoniae Not Detected (Not Detect); Parainfluenza Virus 1 Not Detected (Not Detect); Parainfluenza Virus 2 Not Detected (Not Detect); Parainfluenza Virus 3 Not Detected (Not Detect); Parainfluenza Virus 4 Not Detected (Not Detect); Respiratory Syncytial Virus Not Detected (Not Detect); SARS-CoV-2 Not Detected (Not Detect)
[2021-11-01 11:58] VITALS: BP 167/76; PULSE 86; TEMP 98.7; O2SAT 99
== END 2021-11-01 13:14 | DRG 689 ==
LOC: 3BNU 19:19 → EMEROOARM 19:19 → SUATTDRO 10-30 00:22 → 3BNU 10-30 01:00
PROVIDERS: ADMIT Internal Medicine; ATTEND Registered Nurse